=== PATIENT | female | born 1990 | race Caucasian/White ===

== ENCOUNTER 2017-10-01 22:00 | Emergency (ER) | payer OTHER ==
[~2017-10-01] VITALS: Ht 162.6 cm; Wt 102.2 kg
[~2017-10-01 22:00] MED LIST: ACET-1256 PO; LEVO25TA5 PO; METF500T5 PO; ROPI0.25 PO; SERT50TA PO
[2017-10-01 22:01] VITALS: TEMP 36.9; Ht 162.6 cm; Wt 102.2 kg
[2017-10-01] MEDS ORDERED: NRN100 PO (22:11)
[2017-10-01] MEDS ORDERED: METOCLOPRAMIDE HCL INJ 5 MG/ML 2 ML VIAL IV STA (22:15)
[2017-10-01] MEDS ORDERED: DICYCLOMINE HCL 10 MG/ML 2 ML AMP IM ONE (22:15)
[2017-10-01 22:35] VITALS: O2SAT 97
[2017-10-01 22:49] LABS: BASO % 0.4 %; BASO ABS # 0.04 K/uL (0-0.2); COMPLETE YES; EOS % 2.9 %; HEMATOCRIT 38.4 % (37-47); IG% 0.1 %; LYMPH % 43.7 %; MEAN CELL VOLUME 85.7 fL (80-100); MEAN CORPUSCULAR HEMOGLOBIN 28.8 pg (25-34); MEAN CORPUSCULAR HGB CONC 33.6 g/dl (32-36); MEAN PLATELET VOLUME 8.8 fL (7.4-10.4); MONO % 6.7 %; NEUT % 46.2 %; PLATELET COUNT 303 K/uL (130-400); RED BLOOD COUNT 4.48 M/uL (4.2-5.4); WHITE BLOOD COUNT 10.08 K/uL (4.8-10.8)
[2017-10-01 22:50] LABS: URINE APPEARANCE CLEAR (CLEAR); URINE BILIRUBIN NEG (NEG); URINE COLOR YELLOW; URINE NITRITE NEG (NEG); URINE PH 6.5 (4.5-7.5); URINE SPECIFIC GRAVITY 1.024 (1.000-1.030); UROBILINOGEN NEG (NEG); ZZUR CULT IF INDIC CLEAN CATCH NO
[2017-10-01 22:55] LABS: MANUAL MICROSCOPIC REQUIRED? NO; REVIEW REQ? NO
[2017-10-01 23:08] LABS: ALT/SGPT 27 U/L (12-78); AST/SGOT 18 U/L (15-37); BLOOD UREA NITROGEN 9 mg/dl (7-18); BUN/CREATININE RATIO 11.7 (10-20); CARBON DIOXIDE 25 mmol/L (21-32); CHLORIDE 105 mmol/L (98-107); CREATININE 0.76 mg/dl (0.60-1.20); GLUCOSE 95 mg/dl (70-99); POTASSIUM 3.7 mmol/L (3.5-5.1); SODIUM 137 mmol/L (136-145)
[2017-10-01 23:11] LABS: ALKALINE PHOSPHATASE 66 U/L (45-117)
--- NOTE | 2017-10-02 00:18 | EMERGENCY ROOM VISIT NOTE ---
History First contact with patient: 22:05 Chief Complaint: ABDOMINAL PAIN Stated Complaint: BAD ABDOMINAL PAIN Nursing Triage Summary: patient with abdominal pain for the last week with increasing in intensity with nasuea no vomiting History of Present Illness The patient is a 27 year old female who presents to the Emergency Room with complaints of nausea and intermittent abdominal pain for the past 3 days. Patient states throughout the day she'll have episodes of lower abdominal pain that starts in the right lower quadrant and radiates across her lower abdomen. Pain lasts 5-10 minutes. No prolonged episodes. She's had ovarian cysts before. She is unsure if this feels similar. Patient still has her appendix. Patient had a tubal ligation in the past. Patient denies chest pain, dyspnea, fever, chills, back pain, urinary symptoms, vaginal itching or discharge, exposure to STI's or concerns for STI's, vomiting, diarrhea. Review of Systems See HPI for pertinent positives & negatives. A total of 10 systems reviewed and were otherwise negative. Past Medical/Surgical History Medical Problems: (1) Acute costochondritis (2) Anxiety (3) Depression (4) Diabetes Surgical Problems: (1) Hx of cholecystectomy (2) S/P tubal ligation Family History Diabetes mellitus FH: cancer FH: heart disease FH: lung disease FHx: gallbladder disease Hypertension Social History Smoking Status: Never Smoker Alcohol Use: none Marital Status: single Housing Status: lives with family Occupation Status: employed Current/Historical Medications Scheduled Gabapentin (Gabapentin), 100 MG PO HS Sertraline (Zoloft), 100 MG PO HS Physical Exam Vital Signs Date Time Temp Pulse Resp B/P (MAP) Pulse Ox O2 Delivery O2 Flow Rate FiO2 10/01/17 23:00 87 20 108/62 97 Room Air 10/01/17 22:45 82 10/01/17 22:35 97 Room Air 10/01/17 22:01 36.9 85 18 114/73 98 Room Air Physical Exam VITALS: Vitals are noted on the nurse's note and reviewed by myself. Vital signs stable. GENERAL: Pleasant female, in no acute distress, nondiaphoretic, well-developed well-nourished. SKIN: The skin was without rashes, erythema, edema, or bruising. There is no tenting of the skin. Capillary reflex less than 2 seconds. HEAD: Normocephalic atraumatic. EARS: External auditory canals clear, tympanic membranes pearly richter without erythema or effusion bilaterally. EYES: Pupils equal round and reactive to light and accommodation. Conjunctivae without injection, sclerae without icterus. Extraocular movements intact. NOSE: Patent, turbinates without inflammation or discharge. MOUTH: Mucous membranes moist. Pharynx without erythema or exudate. Uvula midline. Airway patent. Tongue does not deviate. NECK: Supple without nuchal rigidity. No lymphadenopathy. No thyromegaly. Cervical spine is nontender. No JVD. HEART: Regular rate and rhythm without murmurs gallops or rubs. LUNGS: Clear to auscultation bilaterally without wheezes, rales or rhonchi. No dullness to percussion. No retractions or accessory muscle use. ABDOMEN: Positive bowel sounds x 4. Normal tympanic percussion. Soft, protuberant, obese, minimally tender to palpation right lower suprapubic region , no CVA tenderness, without masses or organomegaly. Long sign negative. No guarding or rebound tenderness. MUSCULOSKELETAL: No muscle atrophy, erythema, or edema noted. NEURO: Patient was alert and oriented to person place and time. Normal sensation to light and sharp touch. No focal neurological deficits. Medical Decision & Procedures Laboratory Results 10/01/17 22:30 Red Blood Count 4.48, Mean Corpuscular Volume 85.7, Mean Corpuscular Hemoglobin 28.8, Mean Corpuscular Hemoglobin Concent 33.6, Mean Platelet Volume 8.8, Neutrophils (%) (Auto) 46.2, Lymphocytes (%) (Auto) 43.7, Monocytes (%) (Auto) 6.7, Eosinophils (%) (Auto) 2.9, Basophils (%) (Auto) 0.4, Neutrophils # (Auto) 4.66, Lymphocytes # (Auto) 4.40, Monocytes # (Auto) 0.68, Eosinophils # (Auto) 0.29, Basophils # (Auto) 0.04 10/01/17 22:30 Test 10/01/17 22:30 White Blood Count 10.08 K/uL (4.8-10.8) Red Blood Count 4.48 M/uL (4.2-5.4) Hemoglobin 12.9 g/dL (12.0-16.0) Hematocrit 38.4 % (37-47) Mean Corpuscular Volume 85.7 fL (80-100) Mean Corpuscular Hemoglobin 28.8 pg (25-34) Mean Corpuscular Hemoglobin Concent 33.6 g/dl (32-36) Platelet Count 303 K/uL (130-400) Mean Platelet Volume 8.8 fL (7.4-10.4) Neutrophils (%) (Auto) 46.2 % Lymphocytes (%) (Auto) 43.7 % Monocytes (%) (Auto) 6.7 % Eosinophils (%) (Auto) 2.9 % Basophils (%) (Auto) 0.4 % Neutrophils # (Auto) 4.66 K/uL (1.4-6.5) Lymphocytes # (Auto) 4.40 K/uL (1.2-3.4) Monocytes # (Auto) 0.68 K/uL (0.11-0.59) Eosinophils # (Auto) 0.29 K/uL (0-0.5) Basophils # (Auto) 0.04 K/uL (0-0.2) RDW Standard Deviation 43.2 fL (36.4-46.3) RDW Coefficient of Variation 14.0 % (11.5-14.5) Immature Granulocyte % (Auto) 0.1 % Immature Granulocyte # (Auto) 0.01 K/uL (0.00-0.02) Urine Color YELLOW Urine Appearance CLEAR (CLEAR) Urine pH 6.5 (4.5-7.5) Urine Specific [place] 1.024 (1.000-1.030) Urine Protein NEG (NEG) Urine Glucose (UA) NEG (NEG) Urine Ketones NEG (NEG) Urine Occult Blood NEG (NEG) Urine Nitrite NEG (NEG) Urine Bilirubin NEG (NEG) Urine Urobilinogen NEG (NEG) Urine Leukocyte Esterase NEG (NEG) Urine Test NEG (NEG) Anion Gap 7.0 mmol/L (3-11) Est Creatinine Clear Calc Drug Dose 129.4 ml/min Estimated GFR () 124.6 Estimated GFR (Non- 107.5 BUN/Creatinine Ratio 11.7 (10-20) Calcium Level 9.0 mg/dl (8.5-10.1) Total Bilirubin 0.3 mg/dl (0.2-1) Direct Bilirubin < 0.1 mg/dl (0-0.2) Aspartate Amino Transf (AST/SGOT) 18 U/L (15-37) Alanine Aminotransferase (ALT/SGPT) 27 U/L (12-78) Alkaline Phosphatase 66 U/L (45-117) Total Protein 7.8 gm/dl (6.4-8.2) Albumin 3.5 gm/dl (3.4-5.0) Medications Administered Medications (Trade) Dose Ordered Sig/Tana Route Start Time Stop Time Status Last Admin Dose Admin Dicyclomine HCl (Bentyl Inj) 20 mg NOW ONCE IM 10/01/17 22:15 10/01/17 22:17 DC 10/01/17 22:45 20 MG Metoclopramide HCl (Reglan Inj) 10 mg NOW STAT IV 10/01/17 22:15 10/01/17 22:17 DC 10/01/17 22:45 10 MG ED Course Prior records/ancillary studies reviewed. Triage Nursing notes reviewed. The patient's history was concerning for abdominal pain. Differential diagnosis: Etiologies such as ovarian cyst, torsion, STI, appendicitis, diverticulitis, PUD , biliary pathology, UTI, pancreatitis, obstruction, mesenteric ischemia, aortic pathology, infections, inflammatory bowel disease, renal colic, as well as others were entertained. Physical examination findings: As above. ER treatment provided: Reglan, Bentyl On reassessment the patient felt better. Diagnostics interpreted by me: The labs revealed no worrisome electrolyte abnormality No leukocytosis. Stable H&H. Negative urine. Negative hCG Imaging studies: US PELVIS: Comparison: US dated 03/30/2017. Pelvic ultrasound within normal limits. Unremarkable sonographic appearance of the uterus and ovaries. No sonographic evidence of ovarian torsion. No free fluid in the pelvis. Radiologist: Vivi Canales MD Exam and history seem consistent with abdominal pain that last for a few minutes for the past few days that could be related to IBS. Patient felt much better after being medicated as above. She did not have an acute abdomen on exam. No leukocytosis. She is able to ambulate without difficulties. She was advised to take medications as directed and to follow-up family care in a day or 2 or here in the ER sooner for abdominal pain, fevers, vomiting, worsening signs or symptoms or as needed. By the evaluation outlined above emergent etiologies such as appendicitis, diverticulitis, PUD, biliary pathology, UTI, pancreatitis, obstruction, mesenteric ischemia, aortic pathology, infections, inflammatory bowel disease, renal colic, as well as others were deemed relatively unlikely. The pt informed about the findings as listed above. All questions were answered and pleased with the treatment. Return instructions were outlined and the patient was discharged in stable condition. Outpatient prescription management: [] Referral: The patient was referred back to their primary care physician for follow-up in 2 to 3 days for a recheck of the current condition. Case reviewed with my attending Medical Decision As above Medication Reconcilliation Current Medication List: was personally reviewed by me Blood Pressure Screening Patient's blood pressure: Normal blood pressure Impression Primary Impression: Bilateral lower abdominal discomfort Additional Impression: Nausea Departure Information Dispostion Home / Self-Care Condition GOOD Referrals Marta Zendejas A. P.ABess (PCP) Patient Instructions My [facility] Additional Instructions Bentyl 10 m tablet every 6-8 hours as needed for abdominal pain and cramping. Zofran(odansetron) tablets 4mg: Take one and allow it to dissolve in your mouth every four to six hours as needed for nausea or vomiting. Ibuprofen(Motrin, Advil) may be used for fever or pain. Use 600mg every six hours as needed. Take with food. Avoid using more than 2400mg in a 24 hour period. Do not use 2400mg per day for more than three consecutive days without physician direction. Prolonged inappropriate use can lead to stomach upset or ulcers. (AND/OR) Acetaminophen(Tylenol) may be used for fever or pain. Use 1000mg every six hours as needed. Avoid using more than 3000mg in a 24 hour period. Rest and drink plenty of fluids as tolerated. Slow sips of water or sports drinks are recommended instead of large amounts all at once. Continue current medications. Recommend bland diet for the next few days. Return to the ER for vomiting, fevers, abdominal pain, chest pains, difficulty breathing, black or bloody stools, worsening of your condition, or as needed. Follow up with your primary physician in 2-3 days for a recheck of your current condition. Problem Qualifiers
[2017-10-02] MEDS ORDERED: DICY20TA35 PO (00:23)
[2017-10-02] MEDS ORDERED: ONDANSETRON HOME PACK 4MG OD TAB PO ONE (00:30)
[2017-10-02] MEDS ORDERED: BENTYL HOME PACK 10 MG VIAL PO ONE (00:30)
[2017-10-02 00:38] VITALS: BP 112/67; PULSE 74; O2SAT 96
--- NOTE | 2017-10-02 06:16 | DIAGNOSTIC IMAGING REPORT ---
PELVIC COMPLETE NON OB HISTORY: 27 years-old Female suprapubic pain acute suprapubic pelvic pain COMPARISON: Pelvic ultrasound 03/30/2017 TECHNIQUE: Multiple real-time sonographic images of the deep pelvic structures were obtained transabdominally assessing grayscale appearance, color and spectral flow. Patient declined the transvaginal portion of the study. FINDINGS: Anteflexed uterus measures 7.4 x 3.9 x 4.4 cm and is unremarkable. Endometrium measures 6 mm. No myometrial mass lesions identified. The right ovary measures 3.0 x 1.9 x 2.8 cm and is unremarkable with arterial inflow documented. The left ovary measures 2.9 x 2.6 x 2.1 cm and is also unremarkable with arterial inflow documented. No significant free pelvic fluid. IMPRESSION: 1. Unremarkable sonographic appearance of the uterus and endometrium. 2. Bilateral ovaries appear normal without evidence of ovarian torsion. The above report was generated using voice recognition software. It may contain grammatical, syntax or spelling errors. Electronically signed by: Quinn Stubbs M.D. 10/02/2017 6:15 AM Dictated Date/Time: 10/02/2017 6:13 AM
== END 2017-10-02 00:39 | disposition home or self-care (01) ==
LOC: C.EDB 22:01
DX: R10.31 Right lower quadrant pain (principal); R10.32 Left lower quadrant pain; R11.0 Nausea; F41.9 Anxiety disorder, unspecified; F32.9 Major depressive disorder, single episode, unspecified; E11.9 Type 2 diabetes mellitus without complications; Z90.49 Acquired absence of other specified parts of digestive tract; Z83.3 Family history of diabetes mellitus; Z80.9 Family history of malignant neoplasm, unspecified; Z82.49 Family history of ischemic heart disease and other diseases of the circulatory system; Z83.6 Family history of other diseases of the respiratory system; Z83.79 Family history of other diseases of the digestive system

== ENCOUNTER 2017-10-29 19:24 | Emergency (ER) | payer OTHER ==
[~2017-10-29] VITALS: Ht 162.6 cm; Wt 103.3 kg
[~2017-10-29 19:24] MED LIST changes: -ACET-1256 PO; -LEVO25TA5 PO; -METF500T5 PO; -ROPI0.25 PO
[2017-10-29 19:27] VITALS: TEMP 37.5; Ht 162.6 cm; Wt 103.3 kg
[2017-10-29] MEDS ORDERED: SODIUM CHLORIDE 0.9% 1000ML 1,000 ML IV STA (19:38)
[2017-10-29] MEDS ORDERED: GI COCKTAIL PO STA (19:38)
[2017-10-29] MEDS ORDERED: FAMOTIDINE 20MG/5ML IV PUSH IV STA (19:38)
[2017-10-29] MEDS ORDERED: ONDANSETRON INJ 2 MG/ML 2 ML VIAL IV STA (19:38)
[2017-10-29] MEDS ORDERED: LIDOCAINE HCL 2% VISC SOLN 20 ML UDC ONE (19:59)
[2017-10-29] MEDS ORDERED: ALUMINUM/MAGNESIUM SUSP 30 ML UDC ONE (19:59)
[2017-10-29 20:06] LABS: BASO % 0.2 %; BASO ABS # 0.02 K/uL (0-0.2); EOS % 1.8 %; EOS ABS # 0.16 K/uL (0-0.5); HEMATOCRIT 35.3 % (37-47); HEMOGLOBIN 12.2 g/dL (12.0-16.0); IG# 0.01 K/uL (0.00-0.02); LYMPH % 14.7 %; LYMPH ABS # 1.31 K/uL (1.2-3.4); MEAN CELL VOLUME 83.6 fL (80-100); MEAN CORPUSCULAR HEMOGLOBIN 28.9 pg (25-34); MEAN CORPUSCULAR HGB CONC 34.6 g/dl (32-36); MEAN PLATELET VOLUME 8.5 fL (7.4-10.4); MONO % 4.8 %; MONO ABS # 0.43 K/uL (0.11-0.59); NEUT % 78.4 %; PLATELET COUNT 257 K/uL (130-400); RED CELL DISTRIBUTION WIDTH CV 13.9 % (11.5-14.5); WHITE BLOOD COUNT 8.93 K/uL (4.8-10.8)
--- NOTE | 2017-10-29 20:10 | EMERGENCY ROOM VISIT NOTE ---
History First contact with patient: 19:30 Chief Complaint: ILLNESS Stated Complaint: VOMITING, FEVER, COUGH, SORE THROAT History of Present Illness The patient is a 27 year old female who presents to the Emergency Room with complaints of nausea and vomiting that started this afternoon around 2 PM. She states she has vomited more than 10 times and cannot keep anything down. She states she woke up this morning with a sore throat and cough, and has had some chills and low-grade fevers up to 100 today as well. She states the vomiting started shortly after she ate lunch, and now she is having epigastric and midline chest pain since the vomiting, she describes this as constant, burning, worse after vomiting, /. She has not tried any medications for her symptoms today. She denies any bloody or bilious emesis, no bloody or black stools, denies abdominal pain, diarrhea, constipation, or urinary symptoms. Review of Systems A complete 10 point review of systems was reviewed with the patient with pertinent positives and negatives as per history of present illness. All else were negative. Past Medical/Surgical History Medical Problems: (1) Acute costochondritis (2) Anxiety (3) Depression (4) Diabetes Surgical Problems: (1) Hx of cholecystectomy (2) S/P tubal ligation Family History Diabetes mellitus FH: cancer FH: heart disease FH: lung disease FHx: gallbladder disease Hypertension Social History Smoking Status: Never Smoker Alcohol Use: none Marital Status: single Housing Status: lives with family Occupation Status: employed Current/Historical Medications Scheduled Gabapentin (Gabapentin), 100 MG PO HS Sertraline (Zoloft), 100 MG PO HS Allergies Reviewed in chart Physical Exam Vital Signs Date Time Temp Pulse Resp B/P (MAP) Pulse Ox O2 Delivery O2 Flow Rate FiO2 10/29/17 22:34 76 16 117/76 98 10/29/17 21:25 90 16 116/76 98 Room Air 10/29/17 20:04 98 10/29/17 19:27 37.5 105 18 107/68 97 Room Air Physical Exam CONSTITUTIONAL: Pleasant and cooperative. No acute distress. Mildly dehydrated , but otherwise well appearing and well nourished. HEENT: Normocephalic, atraumatic. Pupils equal, round and reactive to light, EOMI. TMs normal. Pharynx mildly erythematous, no edema or exudate. Tacky mucous membranes. NECK: Supple, full active range of motion without discomfort. No cervical adenopathy. RESPIRATORY: Clear to auscultation bilaterally with no wheezing, crackles, rhonchi or stridor. Equal expansion bilaterally. CARDIOVASCULAR: Regular rate and rhythm with no murmurs, rubs or gallops. Normal peripheral perfusion. No edema. GASTROINTESTINAL: Soft, nontender, nondistended, obese. No palpable masses or HSM. Bowel sounds present in all quadrants. MUSCULOSKELETAL: Full range of motion of all joints without discomfort. INTEGUMENTARY: No rash or other significant dermatologic conditions noted. NEUROLOGIC: Alert and oriented X 4 with normal affect. No focal neurologic deficits noted. Normal strength and sensation in all 4 extremities. Normal speech. Normal gait observed. Medical Decision & Procedures ER Provider Diagnostic Interpretation: CHEST 2 VIEWS ROUTINE CLINICAL HISTORY: Fever, cough, chest tightness. COMPARISON STUDY: 09/11/2016 FINDINGS: The cardiac and mediastinal contours are normal. There is no evidence of focal pulmonary consolidation. There is no evidence of failure. No pleural effusions are visualized. IMPRESSION: No active disease in the chest. Laboratory Results 10/29/17 19:50 Red Blood Count 4.22, Mean Corpuscular Volume 83.6, Mean Corpuscular Hemoglobin 28.9, Mean Corpuscular Hemoglobin Concent 34.6, Mean Platelet Volume 8.5, Neutrophils (%) (Auto) 78.4, Lymphocytes (%) (Auto) 14.7, Monocytes (%) (Auto) 4.8, Eosinophils (%) (Auto) 1.8, Basophils (%) (Auto) 0.2, Neutrophils # (Auto) 7.00, Lymphocytes # (Auto) 1.31, Monocytes # (Auto) 0.43, Eosinophils # (Auto) 0.16, Basophils # (Auto) 0.02 10/29/17 19:50 Test 10/29/17 19:50 10/29/17 21:14 White Blood Count 8.93 K/uL (4.8-10.8) Red Blood Count 4.22 M/uL (4.2-5.4) Hemoglobin 12.2 g/dL (12.0-16.0) Hematocrit 35.3 % (37-47) Mean Corpuscular Volume 83.6 fL (80-100) Mean Corpuscular Hemoglobin 28.9 pg (25-34) Mean Corpuscular Hemoglobin Concent 34.6 g/dl (32-36) Platelet Count 257 K/uL (130-400) Mean Platelet Volume 8.5 fL (7.4-10.4) Neutrophils (%) (Auto) 78.4 % Lymphocytes (%) (Auto) 14.7 % Monocytes (%) (Auto) 4.8 % Eosinophils (%) (Auto) 1.8 % Basophils (%) (Auto) 0.2 % Neutrophils # (Auto) 7.00 K/uL (1.4-6.5) Lymphocytes # (Auto) 1.31 K/uL (1.2-3.4) Monocytes # (Auto) 0.43 K/uL (0.11-0.59) Eosinophils # (Auto) 0.16 K/uL (0-0.5) Basophils # (Auto) 0.02 K/uL (0-0.2) RDW Standard Deviation 42.0 fL (36.4-46.3) RDW Coefficient of Variation 13.9 % (11.5-14.5) Immature Granulocyte % (Auto) 0.1 % Immature Granulocyte # (Auto) 0.01 K/uL (0.00-0.02) Anion Gap 7.0 mmol/L (3-11) Est Creatinine Clear Calc Drug Dose 126.8 ml/min Estimated GFR () 120.8 Estimated GFR (Non- 104.2 BUN/Creatinine Ratio 11.7 (10-20) Calcium Level 8.5 mg/dl (8.5-10.1) Total Bilirubin 0.5 mg/dl (0.2-1) Direct Bilirubin < 0.1 mg/dl (0-0.2) Aspartate Amino Transf (AST/SGOT) 9 U/L (15-37) Alanine Aminotransferase (ALT/SGPT) 20 U/L (12-78) Alkaline Phosphatase 64 U/L (45-117) Total Protein 7.7 gm/dl (6.4-8.2) Albumin 3.3 gm/dl (3.4-5.0) Lipase 119 U/L (73-393) Urine Color YELLOW Urine Appearance CLEAR (CLEAR) Urine pH 7.0 (4.5-7.5) Urine Specific [place] 1.020 (1.000-1.030) Urine Protein NEG (NEG) Urine Glucose (UA) NEG (NEG) Urine Ketones NEG (NEG) Urine Occult Blood NEG (NEG) Urine Nitrite NEG (NEG) Urine Bilirubin NEG (NEG) Urine Urobilinogen NEG (NEG) Urine Leukocyte Esterase NEG (NEG) Urine Test NEG (NEG) Medications Administered Medications (Trade) Dose Ordered Sig/Tana Route Start Time Stop Time Status Last Admin Dose Admin Sodium Chloride 1,000 ml @ 999 mls/hr Q1H1M STAT IV 10/29/17 19:38 10/29/17 20:38 DC 10/29/17 20:04 999 MLS/HR Ondansetron HCl (Zofran Inj) 4 mg NOW STAT IV 10/29/17 19:38 10/29/17 19:41 DC 10/29/17 20:05 4 MG Famotidine (Pepcid 20mg Iv Push) 20 mg NOW STAT IV 10/29/17 19:38 10/29/17 19:41 DC 10/29/17 20:05 20 MG Al Hydroxide/Mg Hydroxide (Maalox Susp) 30 ml STK-MED ONCE .ROUTE 10/29/17 19:59 10/29/17 20:00 DC 10/29/17 20:05 30 ML Lidocaine HCl (Viscous Lidocaine 2% Soln) 20 ml STK-MED ONCE .ROUTE 10/29/17 19:59 10/29/17 20:00 DC 10/29/17 20:05 20 ML Ondansetron HCl (ZOFRAN ODT 4MG Home Pack) 1 homepack UD ONCE PO 10/29/17 21:15 10/29/17 21:16 DC 10/29/17 21:15 1 HOMEPACK Acetaminophen (Tylenol Tab) 1,000 mg STK-MED ONCE PO 10/29/17 21:39 10/29/17 21:40 DC 10/29/17 21:39 1,000 MG Medical Decision CC: Patient presenting with complaint of vomiting, cough, sore throat, fevers Interpretation of Labs: No leukocytosis, no anemia, no significant electrolyte abnormality, normal renal function, normal liver and lipase. UA negative, urine negative. Differential Diagnosis: Includes, but not limited to gastroenteritis, gastritis , peptic ulcer disease, GERD, viral URI, bronchitis, pneumonia, dehydration, electrolyte abnormality, among others. Medication Reconciliation: I attest that I have personally reviewed the patient' s current medication list. Vital signs review: I reviewed the patient's vital signs and interpret them as follows: T: Afebrile; BP: Normotensive; HR: Tachycardic; RR: Within normal limits; Pulse Ox: Within normal limits on room air. Blood pressure screening: The patient was found to have normal blood pressure on screening and does not require follow-up for repeat blood pressure check. Summary: Patient was evaluated at bedside, history and physical exam performed. Patient is alert and oriented, in no acute distress and nontoxic appearing, resting calmly in the stretcher. Patient does appear mildly dehydrated on exam. The abdomen is nontender throughout with normal bowel sounds. Orders were placed at bedside for labs, UA and , IV fluids for hydration, IV Zofran and Pepcid, GI cocktail, chest x-ray to evaluate for cardiopulmonary disease. Patient discussed with Dr. Muse, who agrees with my assessment and plan. Labs reviewed as above, unremarkable. Chest x-ray no acute abnormalities. Patient reassessed multiple times throughout ED stay, her symptoms are improved , she is now able to tolerate PO fluids without difficulty. Tachycardia resolved after IV fluids. Take home pack of Zofran provided for ongoing management of nausea/vomiting. Patient was updated on all results and plan for discharge, and was encouraged to follow closely with her PCP. She was also given strict return precautions should her symptoms worsen. Patient verbalized understanding of all discharge instructions and was agreeable to this plan. Patient was discharged home in stable condition and ambulatory. Impression Primary Impression: Vomiting Additional Impression: URI with cough and congestion Departure Information Dispostion Home / Self-Care Condition GOOD Referrals Marta Zendejas A. P.ABess (PCP) Patient Instructions ED Gastroenteritis Viral, ED URI Viral, [facility] Additional Instructions You have been evaluated in the emergency department for your vomiting and cough. Your chest x-ray today does not show any sign of pneumonia. You have been provided with Zofran to be taken 1 pill every 6-8 hours as needed for severe nausea/vomiting. For stomach pain/acid stomach, you may take Pepcid (famotidine) or Zantac ( ranitidine) twice a day as needed. These medications are available over-the- counter, please take as directed. For pain or fevers, you may take the following [id number] medications: - Tylenol 1000 mg every 8 hours as needed, do not take more than 3000 mg in 24 hours - Ibuprofen 600 mg every 6-8 hours as needed, do not take more than 2400 mg in 24 hours It is important for you to drink plenty of fluids to stay hydrated. Stick with clear liquids and bland foods until you are feeling back to normal, and slowly advance back to a normal diet. Please follow up with your primary care provider in the next 2-3 days if your symptoms are not improving. Please return to the emergency department for any worsening symptoms, including severe abdominal pain, persistent or worsening vomiting, vomiting blood or bile , fevers > 101.5, severe dizziness or passing out, or any other concerns. Work Instructions Return To Work: 2 days Problem Qualifiers Primary Impression: Vomiting Vomiting type: unspecified Vomiting Intractability: non-intractable Nausea presence: with nausea Qualified Codes: R11.2 - Nausea with vomiting, unspecified
[2017-10-29 20:33] LABS: ALBUMIN 3.3 gm/dl (3.4-5.0); ALT/SGPT 20 U/L (12-78); AST/SGOT 9 U/L (15-37); BLOOD UREA NITROGEN 9 mg/dl (7-18); CALCIUM 8.5 mg/dl (8.5-10.1); CARBON DIOXIDE 26 mmol/L (21-32); CREATININE 0.78 mg/dl (0.60-1.20); GLUCOSE 109 mg/dl (70-99); LIPASE 119 U/L (73-393); POTASSIUM 3.4 mmol/L (3.5-5.1); SODIUM 135 mmol/L (136-145)
[2017-10-29 20:36] LABS: ALKALINE PHOSPHATASE 64 U/L (45-117); TOTAL PROTEIN 7.7 gm/dl (6.4-8.2)
--- NOTE | 2017-10-29 20:39 | DIAGNOSTIC IMAGING REPORT ---
CHEST 2 VIEWS ROUTINE CLINICAL HISTORY: Fever, cough, chest tightness. COMPARISON STUDY: 09/11/2016 FINDINGS: The cardiac and mediastinal contours are normal. There is no evidence of focal pulmonary consolidation. There is no evidence of failure. No pleural effusions are visualized.[ IMPRESSION: No active disease in the chest. Electronically signed by: Yony Paez M.D. 10/29/2017 8:38 PM Dictated Date/Time: 10/29/2017 8:37 PM
[2017-10-29] MEDS ORDERED: ONDANSETRON HOME PACK 4MG OD TAB PO ONE (21:15)
[2017-10-29] MEDS ORDERED: ACETAMINOPHEN 500 MG TAB PO ONE (21:39)
[2017-10-29] MEDS ORDERED: ACETAMINOPHEN 500 MG TAB PO STA (21:44)
[2017-10-29] MEDS ORDERED: NRN100 PO (22:11)
[2017-10-29 22:34] VITALS: BP 117/76; PULSE 76; O2SAT 98
== END 2017-10-29 22:38 | disposition home or self-care (01) ==
LOC: C.EDB 19:26
DX: J06.9 Acute upper respiratory infection, unspecified (principal); R11.10 Vomiting, unspecified; E11.9 Type 2 diabetes mellitus without complications; F32.9 Major depressive disorder, single episode, unspecified; F41.9 Anxiety disorder, unspecified; Z98.51 Tubal ligation status; Z90.49 Acquired absence of other specified parts of digestive tract; Z83.3 Family history of diabetes mellitus; Z80.9 Family history of malignant neoplasm, unspecified; Z82.49 Family history of ischemic heart disease and other diseases of the circulatory system; Z83.79 Family history of other diseases of the digestive system; Z79.899 Other long term (current) drug therapy

== ENCOUNTER 2018-05-31 09:53 | Emergency (ER) | payer OTHER ==
[~2018-05-31] VITALS: Ht 162.6 cm; Wt 103.8 kg
[~2018-05-31 09:53] MED LIST changes: +FLUT0.15 NAE; -SERT50TA PO
[2018-05-31 09:57] VITALS: TEMP 36.8; Ht 162.6 cm; Wt 103.8 kg
[2018-05-31] MEDS ORDERED: KETOROLAC TROMETHAMINE 30 MG/ML VIAL IV STA (10:13)
--- NOTE | 2018-05-31 10:20 | EMERGENCY ROOM VISIT NOTE ---
History Report prepared by Meme: Bambi Monson Under the Supervision of: Dr. Chavo Mae M.D. First contact with patient: 10:04 Chief Complaint: PELVIC PAIN Stated Complaint: BAD PELVIC PAIN History of Present Illness The patient is a 28 year old female who presents to the Emergency Room with complaints of persistent pelvic pain that started last night. The patient rates her pain a 6/10 in severity. The patient states the pain has been worse on her left side. She notes the pain worsens with movement and breathing. She notes she has never had pain like this before. She denies any recent injuries. The patient also complains of lower back pain, a low grade fever, and nausea. She notes her last period was a couple of months ago but states she has a NuvaRing. She denies abnormal vaginal bleeding or discharge, shortness of breath, chest pain, melena, diarrhea, or vomiting. She notes she had a cholecystectomy in 2005. The patient has a history of depression and takes 100 mg of Zoloft. She also has a history of bad allergies and takes 10 mg of Singulair. Source of History: patient Onset: last night Position: other (pelvis) Symptom Intensity: 6/10 Timing: other (persistent) Modifying Factors (Worsening): breathing, movement Associated Symptoms: + fevers, + nausea, + back pain, No chest pain, No SOB , No vomiting, No melena, No diarrhea Review of Systems See HPI for pertinent positives & negatives. A total of 10 systems reviewed and were otherwise negative. Past Medical & Surgical Medical Problems: (1) Acute costochondritis (2) Anxiety (3) Depression (4) Diabetes Surgical Problems: (1) Hx of cholecystectomy (2) S/P tubal ligation Old medical records were reviewed. Nurse's notes were reviewed and I agree with. Family History Diabetes mellitus FH: cancer FH: heart disease FH: lung disease FHx: gallbladder disease Hypertension Social History Smoking Status: Never Smoker Alcohol Use: none Marital Status: single Housing Status: lives with family Occupation Status: employed Current/Historical Medications Scheduled Etonogestrel/Ethinyl Estradiol (Nuvaring), 1 EA VAGRING MONTHLY Fluticasone Propionate (Nasal) (Flonase Allergy Relief), 1 SPRAY ALIYA QD Gabapentin (Gabapentin), 1,200 MG PO HS Montelukast Sodium (Singulair), 10 MG PO DAILY Sertraline Hcl (Zoloft), 200 MG PO HS Allergies Coded Allergies: Penicillins (Verified Allergy, Intermediate, RASH,FEVER, 05/31/18) Physical Exam Vital Signs Date Time Temp Pulse Resp B/P (MAP) Pulse Ox O2 Delivery O2 Flow Rate FiO2 05/31/18 12:46 76 18 120/74 99 05/31/18 11:56 76 18 118/70 99 Room Air 05/31/18 09:57 36.8 84 18 113/75 97 Room Air Physical Exam General: Non-ill appearing young female in no acute distress. HEENT: Normal cephalic atraumatic. Pupils are equal round and reactive to light. Extraocular movements are intact. Oropharynx is pink with moist mucous membranes. No swelling of the mouth lips or tongue. Neck: Supple with a midline trachea. No meningeal signs or stiffness, no JVD or bruits. No Stridor. Chest: Clear to auscultation bilaterally. No wheezes or rhonchi. No increased work of breathing. Heart: regular rate and rhythm. Abdomen: Soft, nondistended without rebound guarding or rigidity. Mildly tender in lower abdomen mostly on left side. Extremities: No cyanosis clubbing or edema. No calf tenderness or assymetry Spine/Back. Non tender to palpation. No CVA tenderness Skin: Good turgor without rashes. Neurologic exam: Cranial nerves two through 12 are intact. Motor and sensation are intact and symmetrical throughout. Medical Decision & Procedures ER Provider Diagnostic Interpretation: Radiology results as stated below per my review and radiologist interpretation: PELVIC COMPLETE NON OB CLINICAL HISTORY: 28 years-old Female presenting with eval for llq abd pain, unknown last menstrual period. TECHNIQUE: Real-time grayscale and color and spectral Doppler ultrasound imaging of the pelvis was performed first using a transabdominal probe and subsequently transvaginal for better characterization. COMPARISON: 10/01/[address] from 2011. FINDINGS: Uterus: Normal. Anteverted retroflexed. The uterus measures 8.1 x 4.4 x 4.7 cm. Endometrial stripe measures 14 mm in thickness. Endometrium normal-appearing. Cervix may contain a prominent Nabothian cyst, although this simple appearing benign cystic structure could be extrauterine or paraovarian. Right adnexa: Right ovary normal. Right ovary measures 2.1 x 3.4 x 2.3 cm. Normal color Doppler flow and arterial and venous waveforms within the ovarian parenchyma. Left adnexa: Left ovary normal. Left ovary measures 3.1 x 2.3 x 1.9 cm. Normal color Doppler flow and arterial and venous waveforms within the ovarian parenchyma. Other: No free fluid. IMPRESSION: No significant abnormality identified within the pelvis. No ovarian torsion. Endometrial thickness is normal for age depending on the phase of the menstrual cycle. Electronically signed by: Alireza Oropeza M.D. 05/31/2018 11:26 AM Dictated Date/Time: 05/31/2018 11:22 AM ABD/PELVIS IV CONTRAST ONLY CLINICAL HISTORY: 28 years-old Female presenting with lower abd pain, mostly on left. TECHNIQUE: Multidetector CT of the abdomen and pelvis was performed after the administration of intravenous contrast. IV contrast: 91 mL of Optiray 320. A dose lowering technique was used consistent with the principles of ALARA (as low as reasonably achievable). COMPARISON: 09/01/2012. CT DOSE (mGy.cm): The estimated cumulative dose is 1376.63 mGy.cm. FINDINGS: [employer] Operator topogram: Cholecystectomy clips. Lung bases: Lungs and pleural spaces clear. Normal heart size. No pericardial or pleural effusion. Liver: Normal morphology. Irregular hypodensity centrally at the liver hilum may represent retraction injury. No liver lesion. Patent hepatic vasculature. Biliary: No intrahepatic or extrahepatic biliary ductal dilatation. Gallbladder surgically absent. Pancreas: Mild parenchymal atrophy. Spleen: Normal. Adrenal glands: Normal. Kidneys and ureters: Normal. No hydronephrosis. Bladder: Incompletely evaluated secondary to underdistention. Pelvic organs: Uterus and ovaries normal. Bowel: Normal. Nodular infiltrated fat adjacent to the junction of the descending and sigmoid colon (series 3 image 275). The appendix is normal. No bowel obstruction. Peritoneal cavity: No free fluid or intraperitoneal gas. Lymph nodes: No enlarged lymph nodes in the abdomen or pelvis. Vasculature: Aorta and IVC patent and normal in caliber. Abdominal wall: Normal. Musculoskeletal: Normal. IMPRESSION: 1. Findings consistent with epiploic appendagitis of the junction of the descending and sigmoid colon. No other acute intra-abdominal pathology. Electronically signed by: Alireza Oropeza M.D. 05/31/2018 12:23 PM Dictated Date/Time: 05/31/2018 12:18 PM Laboratory Results 05/31/18 10:23 Red Blood Count 4.41, Mean Corpuscular Volume 84.1, Mean Corpuscular Hemoglobin 28.1, Mean Corpuscular Hemoglobin Concent 33.4, Mean Platelet Volume 8.7, Neutrophils (%) (Auto) 52.3, Lymphocytes (%) (Auto) 40.5, Monocytes (%) (Auto) 4.7, Eosinophils (%) (Auto) 1.9, Basophils (%) (Auto) 0.2, Neutrophils # (Auto) 4.41, Lymphocytes # (Auto) 3.41, Monocytes # (Auto) 0.40, Eosinophils # (Auto) 0.16, Basophils # (Auto) 0.02 05/31/18 10:23 Test 05/31/18 10:20 05/31/18 10:23 Urine Color DK YELLOW Urine Appearance CLOUDY (CLEAR) Urine pH 6.5 (4.5-7.5) Urine Specific [place] 1.031 (1.000-1.030) Urine Protein NEG (NEG) Urine Glucose (UA) NEG (NEG) Urine Ketones TRACE (NEG) Urine Occult Blood 2+ (NEG) Urine Nitrite NEG (NEG) Urine Bilirubin NEG (NEG) Urine Urobilinogen NEG (NEG) Urine Leukocyte Esterase TRACE (NEG) Urine WBC (Auto) 1-5 /hpf (0-5) Urine RBC (Auto) 0-4 /hpf (0-4) Urine Hyaline Casts (Auto) 0 /lpf (0-5) Urine Epithelial Cells (Auto) >30 /lpf (0-5) Urine Bacteria (Auto) 1+ (NEG) Urine Pathogenic Casts /lpf (0) Urine Test NEG (NEG) White Blood Count 8.43 K/uL (4.8-10.8) Red Blood Count 4.41 M/uL (4.2-5.4) Hemoglobin 12.4 g/dL (12.0-16.0) Hematocrit 37.1 % (37-47) Mean Corpuscular Volume 84.1 fL (80-100) Mean Corpuscular Hemoglobin 28.1 pg (25-34) Mean Corpuscular Hemoglobin Concent 33.4 g/dl (32-36) Platelet Count 346 K/uL (130-400) Mean Platelet Volume 8.7 fL (7.4-10.4) Neutrophils (%) (Auto) 52.3 % Lymphocytes (%) (Auto) 40.5 % Monocytes (%) (Auto) 4.7 % Eosinophils (%) (Auto) 1.9 % Basophils (%) (Auto) 0.2 % Neutrophils # (Auto) 4.41 K/uL (1.4-6.5) Lymphocytes # (Auto) 3.41 K/uL (1.2-3.4) Monocytes # (Auto) 0.40 K/uL (0.11-0.59) Eosinophils # (Auto) 0.16 K/uL (0-0.5) Basophils # (Auto) 0.02 K/uL (0-0.2) RDW Standard Deviation 40.0 fL (36.4-46.3) RDW Coefficient of Variation 13.3 % (11.5-14.5) Immature Granulocyte % (Auto) 0.4 % Immature Granulocyte # (Auto) 0.03 K/uL (0.00-0.02) Anion Gap 5.0 mmol/L (3-11) Est Creatinine Clear Calc Drug Dose 119.9 ml/min Estimated GFR () 112.9 Estimated GFR (Non- 97.4 BUN/Creatinine Ratio 11.2 (10-20) Calcium Level 8.7 mg/dl (8.5-10.1) Total Bilirubin 0.3 mg/dl (0.2-1) Direct Bilirubin < 0.1 mg/dl (0-0.2) Aspartate Amino Transf (AST/SGOT) 10 U/L (15-37) Alanine Aminotransferase (ALT/SGPT) 18 U/L (12-78) Alkaline Phosphatase 68 U/L (45-117) Total Protein 7.4 gm/dl (6.4-8.2) Albumin 3.2 gm/dl (3.4-5.0) Lipase 129 U/L (73-393) Laboratory studies as stated above per my review. Medications Administered Medications (Trade) Dose Ordered Sig/Tana Route Start Time Stop Time Status Last Admin Dose Admin Ketorolac Tromethamine (Toradol Inj) 30 mg NOW STAT IV 05/31/18 10:13 05/31/18 10:15 DC 05/31/18 10:28 30 MG ED Course 1008: Past medical records reviewed. The patient was evaluated in room C9, and a complete history and physical examination were performed. 1013: Ordered Toradol Inj 30 mg IV. 1055: The patient is in ultrasound at this time. 1153: I rechecked the patient. She appears comfortable. She states she is still having pain. I will order a CT. 1235: Upon reevaluation, the patient is resting comfortably. I discussed the results and treatment plan with her. She verbalized agreement of the treatment plan. The patient was discharged home. Medical Decision Differential Diagnosis: , UTI, gynecologic issue, appendicitis, infection, electrolyte or metabolic abnormality, or musculoskeletal. This patient comes in complaining of lower abdominal/pelvic pain is mostly on the left. It has been going on since last night. She denies as she has had a tubal ligation and is on hormonal control. IV access was established and multiple blood testing was obtained as well as urinalysis and culture. She is driving. She was given Toradol 30 mg IV. Ultrasound was also obtained as well as a test. She was reassessed frequently. She seems to be resting comfortably after the Toradol. She has no white count or fever to suggest infection. She is no acute electrolyte or metabolic abnormalities. She is nothing to suggest liver gallbladder pancreas disease. Urinalysis is unremarkable. test is negative. Ultrasound was obtained and shows no acute findings of her gynecologic organs. With her ongoing symptoms, I did get a CAT scan and she appears to have epiploic appendagitis. She will be treated with NSAIDs. She should use ibuprofen 400 mg every 6 hours and take with food. She should return if: increasing pain, fever or chills, worsening of symptoms, any new problems or concerns. She is happy the plan and discharged to home. Medication Reconcilliation Current Medication List: was personally reviewed by me Blood Pressure Screening Patient's blood pressure: Normal blood pressure Impression Primary Impression: Epiploic appendagitis Additional Impression: LLQ abdominal pain Scribe Attestation The scribe's documentation has been prepared under my direction and personally reviewed by me in its entirety. I confirm that the note above accurately reflects all work, treatment, procedures, and medical decision making performed by me. Departure Information Dispostion Home / Self-Care Referrals Marta Zendejas A. P.Kaylee (PCP) Patient Instructions My [facility] Additional Instructions Rest. Drink plenty of fluids. Use ibuprofen 400 mg every 6 hours, take with food Return if: Increasing pain, fever chills, worsening symptoms, any new problems or concerns Problem Qualifiers
[2018-05-31 10:39] LABS: BASO % 0.2 %; BASO ABS # 0.02 K/uL (0-0.2); EOS % 1.9 %; EOS ABS # 0.16 K/uL (0-0.5); HEMATOCRIT 37.1 % (37-47); HEMOGLOBIN 12.4 g/dL (12.0-16.0); IG# 0.03 K/uL (0.00-0.02); LYMPH % 40.5 %; LYMPH ABS # 3.41 K/uL (1.2-3.4); MEAN CELL VOLUME 84.1 fL (80-100); MEAN CORPUSCULAR HEMOGLOBIN 28.1 pg (25-34); MEAN CORPUSCULAR HGB CONC 33.4 g/dl (32-36); MEAN PLATELET VOLUME 8.7 fL (7.4-10.4); MONO % 4.7 %; NEUT % 52.3 %; NEUT ABS # 4.41 K/uL (1.4-6.5); PLATELET COUNT 346 K/uL (130-400); RED CELL DISTRIBUTION WIDTH CV 13.3 % (11.5-14.5); WHITE BLOOD COUNT 8.43 K/uL (4.8-10.8)
[2018-05-31] MEDS ORDERED: ETONMIS VAGRING (11:00)
[2018-05-31 11:03] LABS: ALBUMIN 3.2 gm/dl (3.4-5.0); ALKALINE PHOSPHATASE 68 U/L (45-117); ALT/SGPT 18 U/L (12-78); AST/SGOT 10 U/L (15-37); BLOOD UREA NITROGEN 9 mg/dl (7-18); CALCIUM 8.7 mg/dl (8.5-10.1); CARBON DIOXIDE 24 mmol/L (21-32); CREATININE 0.82 mg/dl (0.60-1.20); GLUCOSE 116 mg/dl (70-99); LIPASE 129 U/L (73-393); POTASSIUM 3.5 mmol/L (3.5-5.1); SODIUM 137 mmol/L (136-145); TOTAL PROTEIN 7.4 gm/dl (6.4-8.2)
--- NOTE | 2018-05-31 11:28 | DIAGNOSTIC IMAGING REPORT ---
PELVIC COMPLETE NON OB CLINICAL HISTORY: 28 years-old Female presenting with eval for llq abd pain, unknown last menstrual period. TECHNIQUE: Real-time grayscale and color and spectral Doppler ultrasound imaging of the pelvis was performed first using a transabdominal probe and subsequently transvaginal for better characterization. COMPARISON: 10/01/[address] from 2011. FINDINGS: Uterus: Normal. Anteverted retroflexed. The uterus measures 8.1 x 4.4 x 4.7 cm. Endometrial stripe measures 14 mm in thickness. Endometrium normal-appearing. Cervix may contain a prominent Nabothian cyst, although this simple appearing benign cystic structure could be extrauterine or paraovarian. Right adnexa: Right ovary normal. Right ovary measures 2.1 x 3.4 x 2.3 cm. Normal color Doppler flow and arterial and venous waveforms within the ovarian parenchyma. Left adnexa: Left ovary normal. Left ovary measures 3.1 x 2.3 x 1.9 cm. Normal color Doppler flow and arterial and venous waveforms within the ovarian parenchyma. Other: No free fluid. IMPRESSION: No significant abnormality identified within the pelvis. No ovarian torsion. Endometrial thickness is normal for age depending on the phase of the menstrual cycle. Electronically signed by: Alireza Oropeza M.D. 05/31/2018 11:26 AM Dictated Date/Time: 05/31/2018 11:22 AM
[2018-05-31] MEDS ORDERED: OPTIRAY 320 IV PRN (12:00)
--- NOTE | 2018-05-31 12:25 | DIAGNOSTIC IMAGING REPORT ---
ABD/PELVIS IV CONTRAST ONLY CLINICAL HISTORY: 28 years-old Female presenting with lower abd pain, mostly on left. TECHNIQUE: Multidetector CT of the abdomen and pelvis was performed after the administration of intravenous contrast. IV contrast: 91 mL of Optiray 320. A dose lowering technique was used consistent with the principles of ALARA (as low as reasonably achievable). COMPARISON: 09/01/2012. CT DOSE (mGy.cm): The estimated cumulative dose is 1376.63 mGy.cm. FINDINGS: [employer] topogram: Cholecystectomy clips. Lung bases: Lungs and pleural spaces clear. Normal heart size. No pericardial or pleural effusion. Liver: Normal morphology. Irregular hypodensity centrally at the liver hilum may represent retraction injury. No liver lesion. Patent hepatic vasculature. Biliary: No intrahepatic or extrahepatic biliary ductal dilatation. Gallbladder surgically absent. Pancreas: Mild parenchymal atrophy. Spleen: Normal. Adrenal glands: Normal. Kidneys and ureters: Normal. No hydronephrosis. Bladder: Incompletely evaluated secondary to underdistention. Pelvic organs: Uterus and ovaries normal. Bowel: Normal. Nodular infiltrated fat adjacent to the junction of the descending and sigmoid colon (series 3 image 275). The appendix is normal. No bowel obstruction. Peritoneal cavity: No free fluid or intraperitoneal gas. Lymph nodes: No enlarged lymph nodes in the abdomen or pelvis. Vasculature: Aorta and IVC patent and normal in caliber. Abdominal wall: Normal. Musculoskeletal: Normal. IMPRESSION: 1. Findings consistent with epiploic appendagitis of the junction of the descending and sigmoid colon. No other acute intra-abdominal pathology. Electronically signed by: Alireza Oropeza M.D. 05/31/2018 12:23 PM Dictated Date/Time: 05/31/2018 12:18 PM
[2018-05-31 12:46] VITALS: BP 120/74; PULSE 76; O2SAT 99
[2018-05-31] MEDS ORDERED: NRN300 PO (17:29)
[2018-05-31] MEDS ORDERED: MONT1TAB3 PO (17:29)
[2018-05-31] MEDS ORDERED: SERT100T PO (17:29)
== END 2018-05-31 12:46 | disposition home or self-care (01) ==
LOC: C.EDB 09:54 → C.EDC 12:46
DX: K63.89 Other specified diseases of intestine (principal); Q43.8 Other specified congenital malformations of intestine; R10.32 Left lower quadrant pain; E11.9 Type 2 diabetes mellitus without complications; F32.9 Major depressive disorder, single episode, unspecified; F41.9 Anxiety disorder, unspecified; Z79.3 Long term (current) use of hormonal contraceptives; Z79.899 Other long term (current) drug therapy; Z88.0 Allergy status to penicillin

== ENCOUNTER 2024-05-11 15:35 | Inpatient (IN) ==
[2024-05-11 16:32] LABS: Appearance Urine Cloudy (Clear); Bacteria Urine Automated 2+ (None Seen); Bilirubin Urine Negative (Negative); Blood Urine Trace (Negative); Cast Urine Automated 0-2 /lpf (0-2); Color Urine Yellow; Glucose Urine UA Negative (Negative); Ketones Urine Negative (Negative); Leukocyte Esterase Urine 3+ (Negative); Nitrite Urine Negative (Negative); Protein Urine Trace (Negative); Specific Gravity Urine 1.015 (1.000-1.030); Urobilinogen Urine Negative (Negative); WBC Urine Automated >50 /hpf (0-5); pH Urine 6.5 (4.5-7.5)
[2024-05-11 16:44] LABS: Basophils # (auto) 0.06 K/uL (0.00-0.20); Basophils % (auto) 0.5 %; Eosinophils # (auto) 0.18 K/uL (0.00-0.50); Eosinophils % (auto) 1.4 %; Hematocrit (blood only) 32.4 % (37.0-47.0); Hemoglobin 10.8 g/dl (12.0-16.0); Immature Granulocytes # (auto) 0.06 K/uL (0.01-0.20); Immature Granulocytes % (auto) 0.5 %; Lymphocytes # (auto) 3.08 K/uL (1.20-3.40); Lymphocytes % (auto) 23.3 %; Mean Corpuscular Hemoglobin 27.2 pg (25.0-34.0); Mean Corpuscular Hgb Conc 33.3 g/dL (32.0-36.0); Mean Corpuscular Volume 81.6 fL (80.0-100.0); Mean Platelet Volume 8.2 fL (9.4-12.4); Monocytes # (auto) 0.98 K/uL (0.11-0.59); Monocytes % (auto) 7.4 %; Neutrophils # (auto) 8.86 K/uL (1.40-6.50); Neutrophils % (auto) 66.9 %; Platelet Count 458 K/uL (130-400); RDW Coefficient of Variation 13.5 % (11.5-14.5); RDW Standard Deviation 40.6 fL (36.4-46.3); Red Blood Count 3.97 M/uL (4.20-5.40); White Blood Count 13.22 K/ul (4.8-10.8)
[2024-05-11 16:49] LABS: Pregnancy Test, Serum Negative (Negative)
[2024-05-11 16:51] LABS: Albumin Globulin Ratio 0.9 (0.9-2); Albumin Level 3.8 gm/dl (3.4-5.0); BUN Creatinine Ratio 13.4 (10-20); Bilirubin,Total 0.4 mg/dl (0.2-1.0); Calcium 9.1 mg/dl (8.6-10.3); Creatinine Clr Calc Pharmacy 147.1 ml/min; Est GFR (African American) 132.9 ml/min; Est GFR (Non-African American) 114.7 ml/min; Globulin 4.2 gm/dl (2.5-4.0)
[2024-05-11] MEDS: OPTIRAY 320 100ml IV ONE (17:50)
[2024-05-11] MEDS: SODIUM CHLORIDE 0.9% 1,000 ML IV SCH (18:14)
--- NOTE | 2024-05-11 18:15 | Emergency Department Note ---
Impression & Plan Sepsis, Abscess of abdominal cavity, Post-operative infection, Leukocytosis, Anemia ED Provider Note NAME: JUN ELY AGE: 34 SEX: F : 1990 ARRIVES VIA: Walk-In INFORMANT: Patient ED PROVIDER(S): Vik Villeda DO CHIEF COMPLAINT: Fever x 6 days associate with dysuria urgency and frequency HPI: Patient is a 34-year-old female who had a hysterectomy performed in [place] on April 17. She notes that over the past 3 days she has been having dysuria, urgency, and frequency. For the past 6 days she has been having fevers of 101. She denies any headache or change in vision. No chest pain or shortness of breath. She notes the belly pain has been improving significantly since the surgery. No other exacerbating or remitting factors. No cough or congestion. ADDITIONAL HISTORY OBTAINED: Per HPI Chronic Medical/Social Conditions Affecting Care: Per HPI PAST MEDICAL HISTORY:See Below PAST SURGICAL HISTORY:See Below FAMILY HISTORY:See Below SOCIAL HISTORY:See Below HOME MEDICATIONS:See Below ALLERGIES:See Below VITALS:See Below PHYSICAL EXAMINATION: GENERAL: Sitting up in bed, alert, well appearing, well nourished, no distress, non-toxic EYE EXAM: normal conjunctiva. OROPHARYNX: mucous membranes are moist NECK: supple, no nuchal rigidity, no adenopathy, non-tender LUNGS: Clear to auscultation. Normal chest wall mechanics HEART: no murmurs, S1 normal and S2 normal ABDOMEN: abdomen soft, non-tender, normo-active bowel sounds, no masses, no rebound or guarding. BACK: Back is symmetrical on inspection and there is no deformity, no midline tenderness, no CVA tenderness. SKIN: no rashes and no bruising UPPER EXTREMITIES: upper extremities are grossly normal. LOWER EXTREMITIES: No pitting edema. NEURO EXAM: Normal sensorium, cranial nerves II-XII grossly intact, normal speech, no gross weakness of arms, no gross weakness of legs. MEDICAL DECISION MAKING: Patient is a 34-year-old female who presents ER for above-stated complaint. IV was established blood was obtained. Labs showed a leukocytosis of 13,000. Mild anemia at 10.8. BMP on LFTs bilirubin was unremarkable. Lactic acid was normal. Lipase was normal. hCG was negative. UA was contaminated and consequently was repeated and was completely clean. CT abdomen pelvis confirms abdominal abscess/postop infection. This was performed by [facility] [facility] and [place]. I spoke with case your [employer] TECHNICIAN here. They recommended admission to medicine. Patient was given IV fluids and IV Zosyn. Was updated at bedside and was admitted for further evaluation management treatment. Consults/Care Managements Discussions: Per [facility] Triage Nursing notes reviewed. Limited review of prior medical records performed Vital Signs: reviewed and remarkable for no significant abnormalities Differential diagnosis: Differential diagnoses includes but is not limited to gastritis, peptic ulcer disease, GERD, gallbladder disease, pancreatitis, small bowel obstruction, appendicitis, diverticulitis, hernia, urinary tract infection, torsion, /ectopic (if female), perforation, trauma, infectious. ER treatment provided: See below Diagnostics interpreted by me include EKG and cardiac monitoring as listed below: -Cardiac Monitoring: An order was placed for continuous cardiac monitoring. The monitor shows a rate of 80 with sinus rhythm. -ECG: none -Laboratory studies:Interpreted by me as stated above in MDM and shown below. Imaging studies: Xrays: As interpreted by me:none CTs show: CT abdomen pelvis per my preliminary interpretation showed no obvious bowel obstruction CT abdomen pelvis per radiology shows abscess Procedures:none Critical Care: None Past Med/Surg History Problem List (Updated 05/11/24 @ 23:04 by Vik Villeda DO) Anemia (Acute) Leukocytosis (Acute) Post-operative infection (Acute) Abscess of abdominal cavity (Acute) Sepsis (Acute) Pelvic abscess in female Arm DVT (deep venous thromboembolism), chronic (Acute) Abnormal uterine bleeding DVT of upper extremity (deep vein thrombosis) Restless leg syndrome Threatened miscarriage in early (Acute) Gallbladder problem (Acute) (Acute) Threatened premature labor (Acute 03/22/14) labor (Acute 04/07/14) Right low back pain (Acute) Right flank pain (Acute) Right sided abdominal pain (Acute) Pain, dental (Acute) Lateral subluxation of left patella (Acute) Diabetes (Chronic) Depression (Chronic) Precipitous delivery, delivered (current hospitalization) (Acute 05/29/14) Anxiety (Chronic) Hx of cholecystectomy (Chronic) Suprapubic abdominal pain (Acute) Medical History Abnormal uterine bleeding Anxiety Depression DVT of upper extremity (deep vein thrombosis) Obesity Restless leg syndrome Surgical History Hx of cholecystectomy Family History Other Deep vein thrombosis Social History Smoking Status: Current every day smoker Preferred Language: Bangladeshi Feels Safe at Home: Yes Allergies Allergies Allergy/AdvReac Type Severity Reaction Status Date / Time No Known Allergies Allergy Verified 05/11/24 22:35 Home Meds Home Medications Medication Instructions Recorded Confirmed albuterol sulfate 90 mcg/actuation 2 puff inhalation Q4 PRN Cough 05/11/24 05/11/24 aerosol inhaler apixaban 2.5 mg tablet (Eliquis) 2.5 mg PO AMHS 05/11/24 05/11/24 docusate sodium 100 mg capsule 100 mg PO AMHS PRN Constipation 05/11/24 05/11/24 doxepin 25 mg capsule 50 mg PO HS 05/11/24 05/11/24 hydrocodone 7.5 mg-acetaminophen 1 tab PO Q6 PRN Pain 05/11/24 05/11/24 325 mg tablet ibuprofen 800 mg tablet 800 mg PO Q8 PRN Pain 05/11/24 05/11/24 montelukast 10 mg tablet 10 mg PO HS 05/11/24 05/11/24 ondansetron HCl 4 mg tablet 4 mg PO Q8 PRN Nausea 05/11/24 05/11/24 ropinirole 2 mg tablet 2 mg PO HS 05/11/24 05/11/24 semaglutide 1 mg/dose (4 mg/3 mL) 0 mg subcut WK 05/11/24 05/11/24 subcutaneous pen injector (Ozempic) sennosides 8.6 mg tablet (Senna 8.6 mg PO DAILY PRN Constipation 05/11/24 05/11/24 Laxative) sertraline 100 mg tablet 150 mg PO HS 05/11/24 05/11/24 Results & Data (ED) Vital Signs Vital Signs - 24 hr 05/11/24 15:37 05/11/24 17:58 05/11/24 18:00 Temperature 36.8 C 36.7 C Temperature Source Oral Oral Pulse Rate 89 Pulse Rate [Finger] 79 Pulse Rate from SpO2 Sensor Respiratory Rate 16 18 Respiratory Effort / Characteristics Non-Labored Spontaneous Non-Labored Spontaneous Respiratory Depth Normal Normal Respiratory Pattern Regular Blood Pressure 119/74 Blood Pressure [Right Arm] 83/50 L 81/47 L Blood Pressure Mean 89 Blood Pressure Mean [Right Arm] 61 58 Pulse Oximetry 96 95 Oxygen Delivery Method Room Air Room Air Sepsis Recent Fever Within 48 Hours Yes Sepsis New/Unexplained Change in Mental Status No Sepsis Action Taken by Nursing No Action Required 05/11/24 18:15 05/11/24 18:30 05/11/24 18:45 Temperature Temperature Source Pulse Rate Pulse Rate [Finger] Pulse Rate from SpO2 Sensor Respiratory Rate 18 20 18 Respiratory Effort / Characteristics Respiratory Depth Respiratory Pattern Blood Pressure Blood Pressure [Right Arm] 89/52 L 82/51 L 83/50 L Blood Pressure Mean Blood Pressure Mean [Right Arm] 64 61 61 Pulse Oximetry 96 95 Oxygen Delivery Method Room Air Room Air Sepsis Recent Fever Within 48 Hours Sepsis New/Unexplained Change in Mental Status Sepsis Action Taken by Nursing 05/11/24 19:37 05/11/24 19:45 Temperature Temperature Source Pulse Rate 74 Pulse Rate [Finger] 72 Pulse Rate from SpO2 Sensor 74 Respiratory Rate 16 17 Respiratory Effort / Characteristics Non-Labored Spontaneous Respiratory Depth Normal Respiratory Pattern Regular Blood Pressure 103/68 Blood Pressure [Right Arm] 103/62 Blood Pressure Mean 79 Blood Pressure Mean [Right Arm] 75 Pulse Oximetry 96 97 Oxygen Delivery Method Room Air Sepsis Recent Fever Within 48 Hours Sepsis New/Unexplained Change in Mental Status Sepsis Action Taken by Nursing Laboratory Data 05/11/24 16:05 05/11/24 16:05 Lab Results 05/11/24 05/11/24 05/11/24 Range/Units 16:05 16:15 18:57 WBC 13.22 H (4.8-10.8) K/ul RBC 3.97 L (4.20-5.40) M/uL Hgb 10.8 L (12.0-16.0) g/dl Hct 32.4 L (37.0-47.0) % MCV 81.6 (80.0-100.0) fL MCH 27.2 (25.0-34.0) pg MCHC 33.3 (32.0-36.0) g/dL RDW Std Deviation 40.6 (36.4-46.3) fL RDW Coeff of Reji 13.5 (11.5-14.5) % Plt Count 458 H (130-400) K/uL MPV 8.2 L (9.4-12.4) fL Immature Gran % (Auto) 0.5 % Neut % (Auto) 66.9 % Lymph % (Auto) 23.3 % Dolores % (Auto) 7.4 % Eos % (Auto) 1.4 % Baso % (Auto) 0.5 % Neut # (Auto) 8.86 H (1.40-6.50) K/uL Lymph # (Auto) 3.08 (1.20-3.40) K/uL Dolores # (Auto) 0.98 H (0.11-0.59) K/uL Eos # (Auto) 0.18 (0.00-0.50) K/uL Baso # (Auto) 0.06 (0.00-0.20) K/uL Immature Gran # (Auto) 0.06 (0.01-0.20) K/uL Sodium 135 L (136-145) mmol/L Potassium 4.0 (3.5-5.1) mmol/L Chloride 102 (98-107) mmol/L Carbon Dioxide 25 (21-32) mmol/L Anion Gap 8 (3-11) BUN 9 (6-23) mg/dl Creatinine 0.67 (0.6-1.2) mg/dl Est Cr Clr Drug Dosing 147.1 ml/min Est GFR ( Amer) 132.9 ml/min Est GFR (Non-Af Amer) 114.7 ml/min BUN/Creatinine Ratio 13.4 (10-20) Glucose 91 (70-99(Fasting)) mg/dl Lactate 0.5 (0.4-2.0) mmol/L Calcium 9.1 (8.6-10.3) mg/dl Total Bilirubin 0.4 (0.2-1.0) mg/dl AST 14 (13-39) U/L ALT 21 (7-52) U/L Alkaline Phosphatase 75 (34-104) U/L Total Protein 8.0 (6.0-8.3) gm/dl Albumin 3.8 (3.4-5.0) gm/dl Globulin 4.2 H (2.5-4.0) gm/dl Albumin/Globulin Ratio 0.9 (0.9-2) Lipase 13 (11-82) U/L HCG, Qual Negative (Negative) Urine Color Yellow Urine Appearance Cloudy A (Clear) Urine pH 6.5 (4.5-7.5) Ur Specific [place] 1.015 (1.000-1.030) Urine Protein Trace H (Negative) Urine Glucose (UA) Negative (Negative) Urine Ketones Negative (Negative) Urine Blood Trace H (Negative) Urine Nitrite Negative (Negative) Urine Bilirubin Negative (Negative) Urine Urobilinogen Negative (Negative) Ur Leukocyte Esterase 3+ H (Negative) Urine WBC (Auto) >50 H (0-5) /hpf Urine RBC (Auto) 3-5 H (0-2) /hpf U Hyaline Cast (Auto) 0-2 (0-2) /lpf U Epithel Cells (Auto) 11-20 H (0-2) /hpf Urine Bacteria (Auto) 2+ H (None Seen) Administered Medications Discontinued Medications Sodium Chloride (Nss) 1,000 mls @ 999 mls/hr IV .Q1H1M THERESE Stop: 05/11/24 20:15 Last Infusion: 05/11/24 20:41 Dose: Infused Documented By: Admin: 05/11/24 19:25 Dose: 999 mls/hr Documented By: Infusion: 05/11/24 19:19 Dose: Infused Documented By: Admin: 05/11/24 18:14 Dose: 999 mls/hr Documented By: INDRA Ceftriaxone Sodium (Rocephin) 2,000 mg in 50 mls @ 100 mls/hr IV NOW STA Stop: 05/11/24 18:40 Last Infusion: 05/11/24 19:13 Dose: Infused Documented By: Admin: 05/11/24 18:19 Dose: 100 mls/hr Documented By: INDRA Metronidazole (Flagyl) 500 mg in 100 mls @ 100 mls/hr IV NOW STA; Protocol Stop: 05/11/24 20:02 Last Infusion: 05/11/24 20:41 Dose: Infused Documented By: Admin: 05/11/24 19:24 Dose: 100 mls/hr Documented By: PA Ioversol (Optiray 320 100ml) 93 ml IV ONCE ONE Stop: 05/11/24 17:51 Last Admin: 05/11/24 17:50 Dose: 93 ml Documented By: EDK Imaging Data Radiologist's Impression: Abdomen/Pelvis CT 05/11/24 16:58 CT abd pelvis IV con only CLINICAL HISTORY: fever, dysuria, recent hysterectomy TECHNIQUE: Helical axial images of the abdomen and pelvis were obtained and displayed. Automated dose lowering techniques and/or adjustment according to patient size were utilized for this exam. This exam was performed with intravenous contrast. CT DOSE: 1324.46 mGy.cm COMPARISON: Comparison is made to CT abdomen pelvis 07/30/2022 FINDINGS: Lower chest: No acute abnormality. Liver: Hepatic steatosis is noted. Gallbladder and biliary tree: Patient is status post cholecystectomy. No intra- or extrahepatic biliary ductal dilation. Pancreas: Unremarkable, no focal lesions. Spleen: Unremarkable. Adrenals: Unremarkable. Kidneys and ureters: Unremarkable. Bladder: Diffuse homogeneous wall thickening is seen. Reproductive organs: Status post hysterectomy. There is a rim-enhancing 33 x 59 mm fluid collection surrounding soft tissue stranding. Bowel: The appendix is normal. Lymph nodes Retroperitoneal: Subcentimeter lymph nodes are noted. Pelvic: Unremarkable. Mesenteric: Unremarkable. Peritoneum: Normal. Vessels: Unremarkable. Abdominal wall: Unremarkable. Bones: Degenerative changes in the visualized spine. IMPRESSION: Post surgical changes of hysterectomy with a rim-enhancing fluid collection at the surgical site with surrounding fat stranding. Findings are concerning for postsurgical abscess. Reactive lymph nodes are seen. ACT 112: Negative or not required by law. Electronically signed by: Sal Leos M.D. 05/11/2024 6:52 PM Discharge Plan Visit Data Chief Complaint: Back Injury/Pain Stated Complaint: FEVER 6 DAYS, PAINFUL UNIRINATION ED Provider: Vik Villeda Discharge Problem: Sepsis, Abscess of abdominal cavity, Post-operative infection, Leukocytosis, Anemia Patient Disposition: Admitted As Inpatient Discharge Instructions Interventions: ED Discharge Assessment Last Done: 05/11/24 22:59 Discharge Problem: Sepsis Qualifiers: Sepsis type: sepsis due to unspecified organism Sepsis acute organ dysfunction status: unspecified Qualified Code(s): A41.9 - Sepsis, unspecified organism Post-operative infection Qualifiers: Encounter type: initial encounter Postoperative infection type: unspecified type Qualified Code(s): T81.40XA - Infection following a procedure, unspecified, initial encounter Leukocytosis Qualifiers: Leukocytosis type: unspecified Qualified Code(s): D72.829 - Elevated white blood cell count, unspecified Anemia Qualifiers: Anemia type: unspecified type Qualified Code(s): D64.9 - Anemia, unspecified
[2024-05-11] MEDS: cefTRIAXone SODIUM 2,000 MG/50 ML BAG IV STA (18:19)
--- NOTE | 2024-05-11 18:53 | CT Scan Report ---
CT abd pelvis IV con only CLINICAL HISTORY: fever, dysuria, recent hysterectomy TECHNIQUE: Helical axial images of the abdomen and pelvis were obtained and displayed. Automated dose lowering techniques and/or adjustment according to patient size were utilized for this exam. This e xam was performed with intravenous contrast. CT DOSE: 1324.46 mGy.cm COMPARISON: Comparison is made to CT abdomen pelvis 07/30/2022 FINDINGS: Lower chest: No acute abnormality. Liver: Hepatic steatosis is noted. Gallbladder and biliary tree: Patient is status post cholecystectomy. No intra- or extrahepatic bilia ry ductal dilation. Pancreas: Unremarkable, no focal lesions. Spleen: Unremarkable. Adrenals: Unremarkable. Kidneys and ureters: Unremarkable. Bladder: Diffuse homogeneous wall thickening is seen. Reproductive organs: Status post hysterectomy. There is a rim-enhancing 33 x 59 mm fluid collection s urrounding soft tissue stranding. Bowel: The appendix is normal. Lymph nodes Retroperitoneal: Subcentimeter lymph nodes are noted. Pelvic: Unremarkable. Mesenteric: Unremarkable. Peritoneum: Normal. Vessels: Unremarkable. Abdominal wall: Unremarkable. Bones: Degenerative changes in the visualized spine. IMPRESSION: Post surgical changes of hysterectomy with a rim-enhancing fluid collection at the surgical site with surrounding fat stranding. Findings are concerning for postsurgical abscess. Reactive lymph nodes ar e seen. ACT 112: Negative or not required by law. Electronically signed by: Sal Leos M.D. 05/11/2024 6:52 PM
[2024-05-11] MEDS: metroNIDAZOLE 500 MG/100 ML BAG IV STA (19:24)
--- NOTE | 2024-05-11 21:00 | History & Physical Report ---
Date of Service May 11, 2024 Assessment & Plan (1) Pelvic abscess in female: Plan: 34-year-old female with past medical history significant for insulin resistance, metabolic syndrome, morbid obesity, mild intermittent asthma, superficial thrombophlebitis of right upper extremity, history of primary dysmenorrhea, restless leg syndrome, migraine, Antithrombin III deficiency, depression and mood disorder who recently had a hysterectomy performed at [facility] on April 17 presents with burning micturition and fevers and pain at surgical site. Patient states last 6 days she is having temperatures at home. And lately she has developed burning micturition. She also has pain at surgical region but was told that it was mostly postprocedure. Denies any chest pain or shortness of breath. No cough. No nausea or vomiting. Appetite is okay. No headaches. No runny nose or sore throat. Hemodynamics okay. Patient has Antithrombin III deficiency and after hysterectomy she was prescribed Eliquis for 4 weeks. History of blood clot in right upper extremity about a year ago which was the first time she had a blood clot. Pelvic abscess in the recent hysterectomy site about 33 x 59 mm fluid collection ER discussed with the coroner on-call and advised for IV antibiotics for now will place on IV Vanco and Zosyn Obgyn consult in a.m. further recommendations n.p.o. from midnight, IV fluids UTI antibiotics as above will follow cultures history of Antithrombin 3 deficiency history of blood clot in right upper extremity last year currently on Eliquis for 4 weeks post hysterectomy will hold Eliquis tonight and give a dose of heparin subcu restart Eliquis if no procedures planned morbid obesity counseling restless leg syndrome on Requip mood disorder and depression Home meds DVT prophylaxis SCDs and restart Eliquis as soon as possible disposition medical floor full code. History of Present Illness Chief Complaint: Pelvic abscess and UTI Primary Care Provider: Marta Zendejas PA-C 34-year-old female with past medical history significant for insulin resistance, metabolic syndrome, morbid obesity, mild intermittent asthma, superficial thrombophlebitis of right upper extremity, history of primary dysmenorrhea, restless leg syndrome, migraine, Antithrombin III deficiency, depression and mood disorder who recently had a hysterectomy performed at [facility] on April 17 presents with burning micturition and fevers and pain at surgical site. Patient states last 6 days she is having temperatures at home. And lately she has developed burning micturition. She also has pain at surgical region but was told that it was mostly postprocedure. Denies any chest pain or shortness of breath. No cough. No nausea or vomiting. Appetite is okay. No headaches. No runny nose or sore throat. Hemodynamics okay. Patient has Antithrombin III deficiency and after hysterectomy she was prescribed Eliquis for 4 weeks. History of blood clot in right upper extremity about a year ago which was the first time she had a blood clot. Past medical history. As mentioned above Past surgical history. Cystoscopy. Laparoscopic fulguration of oviducts. Cholecystectomy. Vaginal hysterectomy with removal of tubes And ovary. Social history. . Quit smoking 2009. Vapes reviewed as per epic. No alcohol use. Marijuana on weekends as per epic. Family history. Mother has COPD. Maternal great uncle had colon cancer. Maternal grandfather had diabetes. [place]. And stroke. Paternal grandmother had hypertension, heart disorder and stroke. Allergies Allergy/AdvReac Type Severity Reaction Status Date / Time No Known Allergies Allergy Verified 05/11/24 22:35 Home Medications Medication Instructions Recorded Confirmed Type albuterol sulfate 90 mcg/actuation 2 puff inhalation Q4 PRN Cough 05/11/24 05/11/24 History aerosol inhaler apixaban 2.5 mg tablet (Eliquis) 2.5 mg PO AMHS 05/11/24 05/11/24 History docusate sodium 100 mg capsule 100 mg PO AMHS PRN Constipation 05/11/24 05/11/24 History doxepin 25 mg capsule 50 mg PO HS 05/11/24 05/11/24 History hydrocodone 7.5 mg-acetaminophen 1 tab PO Q6 PRN Pain 05/11/24 05/11/24 History 325 mg tablet ibuprofen 800 mg tablet 800 mg PO Q8 PRN Pain 05/11/24 05/11/24 History montelukast 10 mg tablet 10 mg PO HS 05/11/24 05/11/24 History ondansetron HCl 4 mg tablet 4 mg PO Q8 PRN Nausea 05/11/24 05/11/24 History ropinirole 2 mg tablet 2 mg PO HS 05/11/24 05/11/24 History semaglutide 1 mg/dose (4 mg/3 mL) 0 mg subcut WK 05/11/24 05/11/24 History subcutaneous pen injector (Ozempic) sennosides 8.6 mg tablet (Senna 8.6 mg PO DAILY PRN Constipation 05/11/24 05/11/24 History Laxative) sertraline 100 mg tablet 150 mg PO HS 05/11/24 05/11/24 History Past Med/Surg History Problem List (Updated 05/11/24 @ 23:04 by Vik Villeda, DO) Anemia (Acute) Leukocytosis (Acute) Post-operative infection (Acute) Abscess of abdominal cavity (Acute) Sepsis (Acute) Pelvic abscess in female Arm DVT (deep venous thromboembolism), chronic (Acute) Abnormal uterine bleeding DVT of upper extremity (deep vein thrombosis) Restless leg syndrome Threatened miscarriage in early (Acute) Gallbladder problem (Acute) (Acute) Threatened premature labor (Acute 03/22/14) labor (Acute 04/07/14) Right low back pain (Acute) Right flank pain (Acute) Right sided abdominal pain (Acute) Pain, dental (Acute) Lateral subluxation of left patella (Acute) Diabetes (Chronic) Depression (Chronic) Precipitous delivery, delivered (current hospitalization) (Acute 05/29/14) Anxiety (Chronic) Hx of cholecystectomy (Chronic) Suprapubic abdominal pain (Acute) Medical History Abnormal uterine bleeding Anxiety Depression DVT of upper extremity (deep vein thrombosis) Obesity Restless leg syndrome Surgical History Hx of cholecystectomy Family History Other Deep vein thrombosis Social History Smoking Status: Never smoker Second Hand Exposure: Yes; Do You Dip or Chew Tobacco: No; Hx Alcohol Use: No Hx Substance Use: Yes Last Used Substance: Days (ago) Last Used Substance Other:: Last week Substance Use Type Other:: Medical Marijuana Preferred Language: Uzbek Communication Ability: Effective [employer] Required: No Beliefs That Will Affect Care: None Current Living Situation: Spouse and Family Other Information That Helps Us Care for You: No Feels Safe at Home: Yes Safety Concerns: Feels Safe At This Time Review of Systems Review of Systems: All systems reviewed & are unremarkable except as noted in HPI & below Physical Exam Physical Exam: General- Not in distress. Head- atraumatic Eyes- PERRL. ENT- oropharynx clear Neck- supple, no JVD. Lungs- clear to auscultation no wheezing or crackles. Heart- regular rhythm; no murmur, no gallop. Abdomen- normal bowel sounds, soft, nontender, no distension. Extremities- no pretibial edema, no erythema seen. Neuro- alert, oriented PERRL, no facial palsy; no dysarthria; moves etxremities. Results & Data Results & Data Vital Signs (Past 12 Hours) Vital Signs Temp Pulse Pulse Resp BP BP Pulse Ox 05/11/24 19:37 72 16 103/62 96 05/11/24 18:45 18 83/50 L 05/11/24 18:30 20 82/51 L 95 05/11/24 18:15 18 89/52 L 96 05/11/24 18:00 36.7 C 81/47 L 05/11/24 17:58 79 18 83/50 L 95 05/11/24 15:37 36.8 C 89 16 119/74 96 O2 Del Method 05/11/24 19:37 Room Air 05/11/24 18:45 05/11/24 18:30 Room Air 05/11/24 18:15 Room Air 05/11/24 18:00 05/11/24 17:58 Room Air 05/11/24 15:37 Room Air Diagnostic Findings Laboratory Results WBC 13.22 K/ul (4.8-10.8) H 05/11/24 16:05 RBC 3.97 M/uL (4.20-5.40) L 05/11/24 16:05 Hgb 10.8 g/dl (12.0-16.0) L 05/11/24 16:05 Hct 32.4 % (37.0-47.0) L 05/11/24 16:05 MCV 81.6 fL (80.0-100.0) 05/11/24 16:05 MCH 27.2 pg (25.0-34.0) 05/11/24 16:05 MCHC 33.3 g/dL (32.0-36.0) 05/11/24 16:05 RDW Std Deviation 40.6 fL (36.4-46.3) 05/11/24 16:05 RDW Coeff of Reji 13.5 % (11.5-14.5) 05/11/24 16:05 Plt Count 458 K/uL (130-400) H 05/11/24 16:05 MPV 8.2 fL (9.4-12.4) L 05/11/24 16:05 Immature Gran % (Auto) 0.5 % 05/11/24 16:05 Neut % (Auto) 66.9 % 05/11/24 16:05 Lymph % (Auto) 23.3 % 05/11/24 16:05 [place] % (Auto) 7.4 % 05/11/24 16:05 Eos % (Auto) 1.4 % 05/11/24 16:05 Baso % (Auto) 0.5 % 05/11/24 16:05 Neut # (Auto) 8.86 K/uL (1.40-6.50) H 05/11/24 16:05 Lymph # (Auto) 3.08 K/uL (1.20-3.40) 05/11/24 16:05 Butler # (Auto) 0.98 K/uL (0.11-0.59) H 05/11/24 16:05 Eos # (Auto) 0.18 K/uL (0.00-0.50) 05/11/24 16:05 Baso # (Auto) 0.06 K/uL (0.00-0.20) 05/11/24 16:05 Immature Gran # (Auto) 0.06 K/uL (0.01-0.20) 05/11/24 16:05 Sodium 135 mmol/L (136-145) L 05/11/24 16:05 Potassium 4.0 mmol/L (3.5-5.1) 05/11/24 16:05 Chloride 102 mmol/L (98-107) 05/11/24 16:05 Carbon Dioxide 25 mmol/L (21-32) 05/11/24 16:05 Anion Gap 8 (3-11) 05/11/24 16:05 BUN 9 mg/dl (6-23) 05/11/24 16:05 Creatinine 0.67 mg/dl (0.6-1.2) 05/11/24 16:05 Est Cr Clr Drug Dosing 147.1 ml/min 05/11/24 16:05 Est GFR ( Amer) 132.9 ml/min 05/11/24 16:05 Est GFR (Non-Af Amer) 114.7 ml/min 05/11/24 16:05 BUN/Creatinine Ratio 13.4 (10-20) 05/11/24 16:05 Glucose 91 mg/dl (70-99(Fasting)) 05/11/24 16:05 Lactate 0.5 mmol/L (0.4-2.0) 05/11/24 18:57 Calcium 9.1 mg/dl (8.6-10.3) 05/11/24 16:05 Total Bilirubin 0.4 mg/dl (0.2-1.0) 05/11/24 16:05 AST 14 U/L (13-39) 05/11/24 16:05 ALT 21 U/L (7-52) 05/11/24 16:05 Alkaline Phosphatase 75 U/L (34-104) 05/11/24 16:05 Total Protein 8.0 gm/dl (6.0-8.3) 05/11/24 16:05 Albumin 3.8 gm/dl (3.4-5.0) 05/11/24 16:05 Globulin 4.2 gm/dl (2.5-4.0) H 05/11/24 16:05 Albumin/Globulin Ratio 0.9 (0.9-2) 05/11/24 16:05 Lipase 13 U/L (11-82) 05/11/24 16:05 HCG, Qual Negative (Negative) 05/11/24 16:05 Urine Color Yellow 05/11/24 Unknown Urine Appearance Clear (Clear) 05/11/24 Unknown Urine pH 7.0 (4.5-7.5) 05/11/24 Unknown Ur Specific [place] 1.030 (1.000-1.030) 05/11/24 Unknown Urine Protein Negative (Negative) 05/11/24 Unknown Urine Glucose (UA) Negative (Negative) 05/11/24 Unknown Urine Ketones Negative (Negative) 05/11/24 Unknown Urine Blood Negative (Negative) 05/11/24 Unknown Urine Nitrite Negative (Negative) 05/11/24 Unknown Urine Bilirubin Negative (Negative) 05/11/24 Unknown Urine Urobilinogen Negative (Negative) 05/11/24 Unknown Ur Leukocyte Esterase Negative (Negative) 05/11/24 Unknown Urine WBC (Auto) >50 /hpf (0-5) H 05/11/24 16:15 Urine RBC (Auto) 3-5 /hpf (0-2) H 05/11/24 16:15 U Hyaline Cast (Auto) 0-2 /lpf (0-2) 05/11/24 16:15 U Epithel Cells (Auto) 11-20 /hpf (0-2) H 05/11/24 16:15 Urine Bacteria (Auto) 2+ (None Seen) H 05/11/24 16:15 Impressions Abdomen/Pelvis CT 05/11/24 16:58 CT abd pelvis IV con only CLINICAL HISTORY: fever, dysuria, recent hysterectomy TECHNIQUE: Helical axial images of the abdomen and pelvis were obtained and displayed. Automated dose lowering techniques and/or adjustment according to patient size were utilized for this exam. This exam was performed with intravenous contrast. CT DOSE: 1324.46 mGy.cm COMPARISON: Comparison is made to CT abdomen pelvis 07/30/2022 FINDINGS: Lower chest: No acute abnormality. Liver: Hepatic steatosis is noted. Gallbladder and biliary tree: Patient is status post cholecystectomy. No intra- or extrahepatic biliary ductal dilation. Pancreas: Unremarkable, no focal lesions. Spleen: Unremarkable. Adrenals: Unremarkable. Kidneys and ureters: Unremarkable. Bladder: Diffuse homogeneous wall thickening is seen. Reproductive organs: Status post hysterectomy. There is a rim-enhancing 33 x 59 mm fluid collection surrounding soft tissue stranding. Bowel: The appendix is normal. Lymph nodes Retroperitoneal: Subcentimeter lymph nodes are noted. Pelvic: Unremarkable. Mesenteric: Unremarkable. Peritoneum: Normal. Vessels: Unremarkable. Abdominal wall: Unremarkable. Bones: Degenerative changes in the visualized spine. IMPRESSION: Post surgical changes of hysterectomy with a rim-enhancing fluid collection at the surgical site with surrounding fat stranding. Findings are concerning for postsurgical abscess. Reactive lymph nodes are seen. ACT 112: Negative or not required by law. Electronically signed by: Sal Leos M.D. 05/11/2024 6:52 PM Code Status & VTE Plan VTE Prophylaxis Plan VTE Prophylaxis will be ordered: Yes
[2024-05-11 21:04] LABS: Appearance Urine Clear (Clear); Bilirubin Urine Negative (Negative); Blood Urine Negative (Negative); Color Urine Yellow; Glucose Urine UA Negative (Negative); Ketones Urine Negative (Negative); Leukocyte Esterase Urine Negative (Negative); Nitrite Urine Negative (Negative); Protein Urine Negative (Negative); Urobilinogen Urine Negative (Negative)
--- OUTSIDE RECORDS SUMMARY | 2024-05-11 21:28 | External Medical Summary | Summary of Care ---
Author Name Unknown Organization [facility] [address] [place] [address] Phone [phone] Care Team Providers Care Home Delivery Driver Name Role Phone Marta Zendejas PA-C Primary Care Provider [phone] Reason for Visit * Reason Onset Date Comments Appointment 04/20/2024 Encounter Details Date Type Department Care Team (Late st Contact Info) Description 04/20/2024 Telephone Gynecology/Obstetrics [facility] [address], [place] [phone] Areli Werner MD [address], [place] [phone] Appointment Allergies Active Allergy Reactions Criticality Noted Date Comments Pollen 05/27/2020 documented as of this encounter (statuses as of 04/20/2024) Medications Medication Sig Dispensed Refills Start Date End Date Status Sertraline HCl 100 MG Oral Tablet (Zoloft)Indication s:Mood disorder (HCC),Stress at home,Family circumstance TAKE 1 & 1/2 (ONE & ONE-HALF) TABLETS BY MOUTH ONCE DAILY 135 Tablet 3 06/10/2023 Active rOPINIRole HCl 2 MG Oral Tablet (Requip)Indication s:Restless legs syndrome Take 1 Tablet by mouth at bedtime. 90 Tablet 1 11/04/2023 Active Montelukast Sodium 10 MG Oral Tablet (Singulair) TAKE 1 TABLET BY MOUTH ONCE DAILY AT BEDTIME 90 Tablet 3 12/30/2023 Active Ozempic (0.25 or 0.5 MG/DOSE) 2 MG/3ML Solution Pen-injector (Semaglutide(0.25 or 0.5MG/DOS)) Inject 0.5 mg under the skin once a week. 3 mL 02/07/2024 Active Albuterol Sulfate HFA 108 (90 Base) MCG/ACT Inhalation Aerosol Solution Inhale 2 Puffs by mouth every 6 hours as needed for Cough. 18 g 3 02/10/2024 Active Ozempic (1 MG/DOSE) 4 MG/3ML Subcutaneous Solution Pen-injector (Semaglutide (1 MG/DOSE))Indicatio ns:Body mass index (BMI) of 45.0 to 49.9 in adult (HCC) Inject 1 mg under the skin once a week. 9 mL 1 03/02/2024 Active Doxepin HCl 25 MG Oral Capsule (SINEquan)Indicati ons:Persistent insomnia TAKE 1 TO 2 CAPSULES BY MOUTH AT BEDTIME ALLOW FOR 8 HOURS OF DOWNTIME 180 Capsule 1 03/13/2024 Active Ibuprofen 800 MG Oral Tablet (Motrin) Take 1 Tablet by mouth every 8 hours as needed for Pain, Mild, Pain, Moderate or Pain, Severe. Alternate with Acetaminophen 30 Tablet 1 04/17/2024 Active Docusate Sodium 100 MG Oral Capsule (Colace) Take 1 Capsule by mouth in the morning and 1 Capsule before bedtime. 10 Capsule 04/17/2024 Active Ondansetron HCl 4 MG Oral Tablet Take 1 Tablet by mouth every 8 hours as needed for Nausea. 20 Tablet 04/17/2024 Active Senna 8.6 MG Oral Capsule Take 1 Tablet by mouth daily as needed for Constipation for up to 1 dose. 14 Capsule 04/17/2024 Active HYDROcodone-Acetam inophen 7.5-325 MG Oral Tablet Take 1 Tablet by mouth every 6 hours as needed for Pain, Moderate or Pain, Severe. 16 Tablet 04/17/2024 Active Apixaban 2.5 MG Oral Tablet (Eliquis) Take 1 Tablet by mouth in the morning and 1 Tablet before bedtime. Do all this for 28 days. 56 Tablet 04/17/2024 Active documented as of this encounter (statuses as of 04/20/2024) Active Problems Problem Noted Date Diagnosed Date Abnormal uterine bleeding (AUB) 04/17/2024 Primary dysmenorrhea 04/17/2024 Metabolic syndrome 03/02/2024 Major depressive disorder wi th single episode, in full remission 02/10/2024 Insulin resistance 10/25/2023 Restless legs syndrome 04/25/2023 Mild intermittent asthma, uncomplicated 04/25/20 23 Mood disorder 04/25/2023 Superficial thrombophlebitis of right upper extr emity 03/22/2023 Overview: Right basilic vein superficial thrombophlebitis. Diagnoses 07/2022 Body mass index (BMI) of 45.0 to 49.9 in adult 0 01/03/2023 Overview: Per Obesity protocol - Per Obesity protocol - Per Obesity protocol - Per Obesity protocol Hyperinsulinemia 06/22/2016 Viral URI 01/27/2010 Migraine 01/06/2009 Overview: None in years. Antithrombin III deficiency documented as of this encounter (statuses as of 04/20/2024) Resolved Problems Problem Noted Date Diagnosed Date Resolved Date Endometriosis 04/25/2023 04/09/2024 Major depressive disorder with single episode 04/25/20 23 02/10/2024 Prediabetes 04/04/2023 03/07/2024 Overview: Per Prediabetes protocol Body mass index (BMI) of 50. 0 to 59.9 in adult 04/05/2022 01/05/2023 Overview: Per Obesity protocol - Per Obesity protocol - Per Obesity protocol Food insecurity 06/01/2021 04/07/2023 Overview: Per [facility] Protocol Body mass index (BMI) of 45. 0 to 49.9 in adult 08/04/2020 04/08/2022 Overview: Per Obesity protocol - Per Obesity protocol Body mass index (BMI) of 40. 0 to 44.9 in adult 07/02/2019 08/07/2020 Overview: Per Obesity protocol Mastalgia in female 10/26/2017 03/22/20 23 Anxiety in , antepartum 12/12/2013 06/21/2014 Overview: Taking sertraline 75mg daily at NOB visit; desires to continue med; feels stable. ADVANCE DIRECTIVE INFORMATION 11/27/2013 09/05/2017 Overview: No, Advance Directive brochure offered , patient declined. Obesity in , antepartum 11/27/2013 04/05/2017 Abnormal Papanicolaou smear complicating , antepartum 10/19/2013 06/21/2014 Overview: Pap at NOB visit showing HGSIL; needs colpo in 2nd trimester --> done at 24 weeks, positive aceto-white lesions, no biopsies taken. Repeat colpo . Encounter for supervision of other normal 10/04/2013 06/21/2014 Overview: Desires PP BTL. Pt has signed tubal consent. Normal anatomy scan. ICD-10 update of inactive term Depression complicating , antepartum 10/04/20 13 12/12/2013 Overview: Taking sertraline 75mg daily at NOB visit; desires to continue med H/O delivery, currently 10/04/2013 06/21/2014 Overview: 2nd with contractions with cervical dilation, pt [place] [facility] at [place] with cervical dilation of 4-5cm, 80% effaced. She delivered at [facility] at 35w6d. MFM consult Threatened premature labor, antepartum 09/24/2011 10/22/2011 Overview: VE 4cm. Steriod benfited. Admitted and [place] [facility] [place] 4[place] NST 2x/week and ASHISH And pelvic exam q visit Jose F Padilla MD 09/24/2011 11:39 AM ICD-10 update of inactive term INFORMATION 09/15/2011 09/24/2011 Overview: 09/15/2011: cervical exam : 2cm/soft. Discussed w/MFM- recommendation is follow w/toco and cervical exam Hx of short cervix with last 04/19/2011 10/22/2011 Overview: Pt reports hx of cervical shortening in last that required serial cervical length& BMTX . Pt went on to deliver at 38 weeks Per MFM on 06/08/11: The transvaginal cervical length was 3.7 cm and 3.3 with fundal pressure. There was no evidence of funneling. I told her that, although her cervix was shortened during her last , it is reassuring that she delivered at 38 weeks gestation. I do not think that this was due to the bedrest or the oral tocolytics. The fact that she has a prior full term delivery should reduce her chance of delivering in a subsequent . At this point, I am reassured with her US findings today. I do not think that a cerclage placement or prophylactic steroids would benefit her in this . At this point in time, I see no need for follow-up. Encounter for supervision of other normal 04/08/2011 10/22/2011 Overview: Shortened cervix in first , was on bedrest, delivered at term. Cervical length on dating u/s 2.4cm. MFM consult placed. Patient declines flu vaccine. 08/04/2011 Charley Puente RN ICD-10 update of inactive term ACUTE STRESS 07/03/2010 12/12/2013 Diarrhea 07/03/2010 12/12/2013 Tobacco use disorder 07/03/2010 011 Obesity, Class II, BMI 35-39 .9, isolated (see actual BMI) 04/06/2010 07/03/2010 Overview: Per Obesity Protocol, #19 Anemia of mother, complicati ng , childbirth, or the puerperium, unspecified as to episode of care(648.20) 03/10/2010 05/02/2010 Overview: FeSO4 supplement ordered 03/10/10. Threatened premature labor, antepartum 02/18/2010 05/02/2010 Overview: Seen in L+D at 28 wks - betameth and procardia FFN 02/20 neg Cx length 1.4 cm MFM appt 03/04 - cx length unchanged, 1.4, ASHISH = 13 FFN 03/05 neg FFN 6/ neg ICD-10 update of inactive term Cough 01/27/2010 04/08/2011 Allergic rhinitis 01/27/2010 12/12/2013 Vertigo 01/27/2010 12/12/2013 OB Shamir Stephenson HBP 09/16/200905/25 Overview: Patient received H1N1 vaccine. 09/16/2009 Elba Lopez RN 02/19/2010 Betamethasone given Lacey RYAN Gastritis and gastroduodenitis 06/10/2009 12/12/2013 Irritable bowel syndrome 01/29/2009 Flatulence, eructation and gas pain 01/29/2009 09/16/2009 FOREIGN BODY IN MOUTH - tongue piercing 01/29/2009 12/12/2013 Major depressive disorder 07/15/2008 Overview: Celexa 40mg daily ICD-10 update of inactive term Panic disorder 10/04/2007 12/12/2013 Chest pain 10/04/2007 04/08/2011 documented as of this encounter (statuses as of 04/20/2024) Immunizations Name Administration Dates Next Due COVID-19 mRNA, LNP-s, No Pre serve, 2-Dose Series ([employer] 11/22/2020,11/12/2020 H1N1 2009 Influenza, IM 09/16/2009 HPV Vaccine, 4-Valent 06/05/2015 08/05/2015 PPD 05/12/2016,04/16/2016 Seasonal Influenza Virus Vac cine, Unspecified Formulation 09/11/2018 TD, Preservative Free 09/24/2020 TDAP, Age 7 and older, IM (Adacel) 08/14/2010, documented as of this encounter Social History Tobacco Use Types Packs/Day Years Used Date Smoking Tobacco: Former Cigarettes Q uit: 07/24/2010 Passive Smoke Exposure: Never Smokeless Tobacco: Never Alcohol Use Standard Drinks/Week Comments No 0 (1 standard drink = 0.6 oz pur e alcohol) PHQ-2 Answer Date Recorded PHQ Adult Total Score 0 05/20/2023 Hunger Vital Sign Answer Date Recorded Within the past 12 months, y ou worried that your food would run out before you got the money to buy more. Never true 03/31/20 23 Within the past 12 months, t he food you bought just didn't last and you didn't have money to get more. Never true 03/31/2023 Utilities Answer Date Recorded Do you have trouble paying y our heating, water, or electric bill? (Adult - for ages 18 years and over) Not on file 04/10/2024 Is your family able to pay t he heat, water, or electric bill? (Household - for ages 0-17 years) Not on file 04/10/2024 Does your family have access to good internet? (Household - for ages 0-17 years) Not on file 04/10/2024 Social Connections Answer Date Recorded How often do you feel lonely or isolated from those around you? (Adult - for ages 18 years and over) Not on file 04/10/2024 Sex and Gender Information Value Date Recorded Sex Assigned at Female 03/31/2023 12:23 PM EDT Gender Identity Female 03/31/2023 12:23 PM EDT Sexual Orientation Straight 03/31/2023 12 :23 PM EDT Job Start Date Occupation Industry Not on file Not on file Not on file documented as of this encounter Miscellaneous Notes * Telephone Encounter - Lakisha Glass OSA - 04/20/2024 10:45 AM EDT Pt lvm stating she needs a f/u from surgery, not sure what she needs. Please advise. documented in this encounter Plan of Treatment Upcoming Encounters Date Type Department Care Team (Late st Contact Info) Description 09/04/2024 10:00 AM EST Office Visit [facility] [address] [place] [phone] Marta Zendejas PA-C [address] [facility] [place] [id number] Health Maintenance Due Date Last Done Comments Pneumococcal Vaccine: Pediatrics (0 to 5 Years) and At-Risk Patients (6 to 64 Years) (1 of 2 - PCV) 02/10/1996 Hepatitis C Screening 02/10/2008 Hepatitis B (1 of 3 - 19+ 3-dose series) 2009 GARDASIL-HPV IMMUNIZATION SERIES (2 - 3-dose series) 07/03/2015 06/05/2015 *SPIROMETRY ONCE FOR ASTHMA-ADULT 04/28/2023 COVID-19 Vaccine (3 - 2022- season) 2023 11/22/2020, 11/12/2020 Depression Monitoring 05/20/2024 05/20/2023 Influenza Vaccine (FLU shot) (Season Ended) 2024 09/11/2018, 09/16/2009 DTaP,Tdap,and Td Vaccines (4 - Td or Tdap) 09/24/2030 09/24/2020, 08/14/2010, 07/15/2008 Cervical Cancer Screening Discontinued HPV/Co-Test Discontinued 03/22/2023 Pap Smear Discontinued 03/22/2023, 12/22, 01/17/2017, Additional history exists MENINGOCOCCAL (MENACTRA/MENVEO) Aged Out No longer eligible based on patient's age to complete this topic documented as of this encounter Medical Devices Not on filedocumented as of this encounter Advance Directives * Full Code (Latest Code Status on File) Date Activated Date Inactivated Comments 04/17/2024 10:54 AM 04/17/2024 7:20 PM This order reflects the patients wishes and were consensually agreed upon. Question Answer Comments Discussion of Advance Directives occurred with: Patient * Full Code Date Activated Date Inactivated Comments 04/10/2015 9:42 AM 04/10/2015 3:15 PM This order r eflects the patients wishes and were consensually agreed upon. * Full Code Date Activated Date Inactivated Comments 10/06/2011 3:22 PM 10/08/2011 6:05 PM This order reflects the patients wishes and were consensually agreed upon. * Full Code Date Activated Date Inactivated Comments 09/20/2011 9:09 PM 09/22/2011 8:58 PM This order reflects the patients wishes and were consensually agreed upon. Care Teams Home Delivery Driver Relationship Specialty Start Date End Date Marta Zendejas PA-C [address] [facility] [place] [address] PCP - General Physician Cube Machine Tender 03/08/22 documented as of this encounter
--- OUTSIDE RECORDS SUMMARY | 2024-05-11 21:28 | External Medical Summary | Summary of Care ---
Author Name Unknown Organization [facility] Address [address] [place] [address] Phone [phone] Care Team Providers Care Medical Economics Consultant Name Role Phone Marta Zendejas PA-C Primary Care Provider [phone] Reason for Referral * Precert (Within 24 hrs (call dept; emergent)) - Pending Review Specialty Diagnoses / Procedures Referred By Skye t Referred To Contact Radiology Diagnoses Postoperative fever Procedures CT ABD/PELVIS W IV AND W ORAL CONTRAST Areli Martinez MD [address] [place] [address] Referral ID Status Reason Start Date Expiration Date V isits Requested Visits Authorized [id number] Pending Review 05/08/2024 [id number] Reason for Visit * Reason Comments Post-Op Hysterectomy on 04/17 Encounter Details Date Type Department Care Team (Latest Contact Info) Description 05/07/2024 1:30 PM EDT Office Visit Gynecology/Obstetric s [facility] [address] [place], [place] [phone] Areli Martinez MD [address] [place], [place] [phone] Postoperative state*; Postoperative fever Allergies Active Allergy Reactions Criticality Noted Date Comments Pollen 05/27/2020 documented as of this encounter (statuses as of 05/07/2024) Medications Medication Sig Dispensed Refills Start Date [...] as of this encounter (statuses as of 05/07/2024) Active Problems Problem Noted Date Diagnosed Date Abnormal uterine bleeding (AUB) 04/17/2024 Primary dysmenorrhea 04/17/2024 Metabolic syndrome 03/02/2024 Major depressive disorder wi th single episode, in full remission 02/10/2024 Insulin resistance 10/25/2023 Restless legs syndrome 04/25/2023 Mild intermittent asthma, uncomplicated 04/25/20 Mood disorder 04/25/2023 Superficial thrombophlebitis of right [...] as of this encounter (statuses as of 05/07/2024) Resolved Problems Problem Noted Date Diagnosed Date [...] with contractions with cervical dilation, [facility] with cervical dilation of 4-5cm, 80% effaced. She delivered at [facility] at 35w6d. MFM consult Threatened premature labor, antepartum 09/24/2011 10/22/2011 Overview: VE 4cm. Bernabeconnie castrejonhaydenicole. Admitted and disch from [facility] at 4cm NST 2x/week and ASHISH And [...] ASHISH = 13 FFN 03/05 neg FFN 03/27 neg ICD-10 update of inactive term Cough [...] as of this encounter (statuses as of 05/07/2024) Immunizations Name Administration Dates Next Due COVID-19 mRNA, LNP-s, No Pre serve, 2-Dose Series ([employer]) 11/22/2020,11/12/2020 H1N1 2009 Influenza, IM 09/16/2009 HPV [...] on file documented as of this encounter Last Filed Vital Signs Vital Sign Reading Time Taken Comments Blood Pressure 102/71 05/07/2024 1:15 PM EDT Pulse - - Temperature - - Respiratory Rate - - Oxygen Saturation - - Inhaled Oxygen Concentration - - Weight 122.1 kg (269 lb 3.2 oz) 05/07/2024 1:15 PM EDT Height 160 cm (5' 2.99") 05/07/2024 1:15 PM EDT Body Mass Index 47.7 05/07/2024 1:15 PM EDT documented in this encounter Progress Notes * Areli Martinez MD - 05/07/2024 1:32 PM EDT Maureen Billings [id number] 05/07/24 The patient is a 34 year old year old POD # 20 who presents today for a post-op check. The patient is s/p TVH on 04/17/2024 Reports had a fever if 101 Tuesday and Tuesday; denies cough; denies urinary frequency/urgnecy; no vag discharge no bleeding Denies cough; complains of intermittent sharp stabbing pain since surgery - low pelvis Pain control: Adequate - taking ibuprofen and tylenol; has hydrocodone only takes if pain gets realbad Signs of infection: Negative A. Uterus and cervix, simple hysterectomy: Chronic cervicitis and squamous metaplasia Disordered proliferative pattern endometrium Benign leiomyomas BP 102/71 | Ht 1.6 m (5' 2.99") | Wt 122.1 kg (269 lb 3.2 oz) | LMP 09/23/2023 | BMI 47.70 kg/m |BSA 2.33 m PHYSICAL EXAMINATION: General: alert, healthy, no distress, does not appear ill HEENT: Normocephalic, atraumatic. ABDOMEN: soft, non-tender,no masses, INTEGUMENT: No rash, no lesions. PELVIC EXAM: External Genitalia/Vulva: anatomy is normal, no significant redness of labia, no discharge on vulvar tissues, . Urethra: normal, no lesions Vagina: vaginal tissues are not inflamed, normal color and texture, small amount alvares fluidy discharge; pos malodor; cuff intact; no fluctuance at cuff BME: no sign acute abdomen Cervix: surgically absent RECTAL EXAM: perianal area normal, anus normal. NEUROLOGIC: alert & oriented to person, place and time;with fluent speech, no focal motor/sensory deficits, gait normal; Cranial nerves II - XII grossly intact EXTREMITIES: no edema, no clubbing, no cyanosis. ASSESSMENT/PLAN: Postoperative state (Primary) - POD#20; s/p tvh; recent febrile episode; if recurs plan ct abd/pelvis; follow up 1 week/prn; call /return with any further temperature/fever CC: Marta Zendejas PA-C Addendum: Patient called after leaving appointment; states temperature to 100.4; will order cbc/ct abd/pelvis; patient called and notified; states temperature 100.9; states was going to go to the ED;recommend hold off; ct will be tomorrow. Postoperative state (Primary) Postoperative fever - CT ABD/PELVIS W IV AND W ORAL CONTRAST; Future; Expected date: 05/08/2024 - CBC WITH WBC DIFFERENTIAL - URINALYSIS, REFLEX TO CULTURE (NOT FOR NEUTROPENIC PATIENTS) Follow Up: Return in about 1 week (around 05/14/2024) for postop. | For: postop documented in this encounter Nursing Notes * Charu Villafana NA/UDC - 05/07/2024 1:16 PM EDT Chief Complaint Patient presents with Post-Op Hysterectomy on 04/17 Pt states no other concerns at this time. MIGUEL Miramontes 05/07/2024 1:16 PM documented in this encounter Miscellaneous Notes * Addendum Note - Areli Martinez MD - 05/07/2024 5:20 PM EDTAddended by: ARELI MARTINEZ on: 05/07/2024 05:20 PM Modules accepted: Orders documented in this encounter Plan of Treatment Upcoming Encounters Date Type Department Care Team (Late st Contact Info) Description 05/16/2024 10:30 AM EDT Office Visit Gynecology/Obstetrics [facility] [address] [place] [address] Rere Brennan DO [address] [place] [address] 09/04/2024 10:00 AM EST Office Visit [facility] [address] [place] [address] Marta Zendejas PA-C [address] [place] [address] Scheduled Orders Name Type Priority Associated Diagnoses Orde r Schedule CT ABD/PELVIS W IV AND W ORAL CONTRAST Medical Imaging STAT Postoperative fever Expected: 05/08/2024, Expires: 05/07/2025 CBC WITH WBC DIFFERENTIAL Lab Routine Postoperative fever Ordered: 05/07/2024 URINALYSIS, REFLEX TO CULTURE (NOT FOR NEUTROPENIC PATIENTS) Lab Routine Postoperative fever Ordered: 05/07/2024 Health Maintenance Due Date Last Done Comments Pneumococcal Vaccine: Pediatrics (0 to 5 Years) and At-Risk Patients (6 to 64 Years) (1 of 2 - PCV) 02/10/1996 Hepatitis C Screening 02/10/2008 Hepatitis B Vaccine (1 of 3 - 19+ 3-dose series) 2009 HPV (Gard[employer]il) Vaccine (2 - 3-dose series) 07/03/2015 06/05/2015 *SPIROMETRY ONCE FOR ASTHMA-ADULT 04/28/2023 COVID-19 Vaccine (3 - 2022- season) 2023 11/22/2020, 11/12/2020 Depression Monitoring 05/20/2024 05/20/2023 Influenza Vaccine (FLU shot) (#1) 2024 09/11/2018, 09/16/2009 DTaP,Tdap,and Td Vaccines (4 - Td or Tdap) 09/24/2030 09/24/2020, 08/14/2010, 07/15/2008 Cervical Cancer Screening Discontinued HPV/Co-Test Discontinued 03/22/2023 Pap Smear Discontinued 03/22/2023, 12/22, 01/17/2017, Additional history exists MENINGOCOCCAL (MENACTRA/MENVEO) Aged Out No longer eligible based on patient's age to complete this topic documented as of this encounter Medical Devices Not on filedocumented as of this encounter Visit Diagnoses Diagnosis Postoperative state- Primary Other postprocedural status Postoperative fever Postprocedural fever documented in this encounter Advance Directives * Full Code [...] and were consensually agreed upon. Care Teams Medical Economics Consultant Relationship Specialty Start Date End Date Marta Zendejas PA-C [address] [facility] [place] [address] PCP - General Physician Oracle Manager 03/08/22 documented as of this encounter
--- OUTSIDE RECORDS SUMMARY | 2024-05-11 21:28 | External Medical Summary | Summary of Care ---
Author Name Unknown Organization [facility] Address [address] [address] [address] Phone [phone] Care Team Providers Care Culled Fruit Packer Name Role Phone Marta Zendejas PA-C Primary Care Provider +1 -[phone] Encounter Details Date Type Department Care Team (Late st Contact Info) Description 04/18/2024 Orders Only Hematology/Oncology [place] [place] [address] [facility] [place] [address] Alphonso Michaud MD [address] [place] [address] Antithrombin III deficiency (HCC)* Allergies Active Allergy Reactions Criticality Noted Date Comments Pollen 05/27/2020 documented as of this encounter (statuses as of 04/18/2024) Medications Medication Sig Dispensed Refills Start Date [...] as of this encounter (statuses as of 04/18/2024) Active Problems Problem Noted Date Diagnosed Date [...] as of this encounter (statuses as of 04/18/2024) Resolved Problems Problem Noted Date Diagnosed Date [...] with contractions with cervical dilation, pt left [facility] at 34wks with cervical dilation of 4-5cm, 80% effaced. She delivered at [facility] at 35w6d. MFM consult Threatened premature labor, antepartum 09/24/2011 10/22/2011 Overview: VE 4cm. Steriod benfited. Admitted and disch from [facility] at 4cm NST 2x/week and ASHISH And [...] as of this encounter (statuses as of 04/18/2024) Immunizations Name Administration Dates Next Due COVID-19 mRNA, LNP-s, No Pre serve, 2-Dose Series (Verafin) 11/22/2020,11/12/2020 H1N1 2009 Influenza, IM 09/16/2009 HPV [...] on file documented as of this encounter Plan of Treatment Upcoming Encounters Date Type Department Care Team (Late st Contact Info) Description 04/18/2024 3:30 PM EDT Laboratory Laboratory, [address] [place] [address] [address] 04/25/2024 2:15 PM EDT Office Visit Hematology/Oncology [facility] [address] [place] [phone] Alphonso Michaud MD [address] [place] [address] 09/04/2024 10:00 AM EST Office [address] [facility], [address] [phone] Marta Zendejas PA-C [address] [facility] [place] [address] Scheduled Orders Name Type Priority Associated Diagnoses Orde r Schedule ANTITHROMBIN III ACTIVITY Lab Routine Antithrombin III deficiency (HCC) Expected: 04/18/2024, Expires: 04/18/2025 Health Maintenance Due Date Last Done Comments [...] (FLU shot) (Season Ended) 2024 09/11/2018, 09/16/2009 Pap Smear 03/22/2026 03/22/2023, 12/22, 01/17/2017, Additional history exists Cervical Cancer Screening 03/22/2028 HPV/Co-Test 03/22/2028 03/22/2023 DTaP,Tdap,and Td Vaccines (4 - Td or Tdap) 09/24/2030 09/24/2020, 08/14/2010, 07/15/2008 MENINGOCOCCAL (MENACTRA/MENVEO) Aged Out No longer eligible based on patient's age to complete this topic documented as of this encounter Medical Devices Not on filedocumented as of this encounter Visit Diagnoses Diagnosis Antithrombin III deficiency (HCC)- Primary Primary hypercoagulable state documented in this encounter Advance Directives * [...] and were consensually agreed upon. Care Teams Culled Fruit Packer Relationship Specialty Start Date End Date Marta Zendejas PA-C [address] [facility] [place] [address] PCP - General Physician Dining Services Director 03/08/22 documented as of this encounter
--- OUTSIDE RECORDS SUMMARY | 2024-05-11 21:28 | External Medical Summary | Summary of Care ---
Author Name Unknown Organization [facility] [address] [place] [address] Phone [phone] Care Team Providers Care Underliner Name Role Phone Marta Zendejas PA-C Primary Care Provider [phone] [phone] Reason for Visit * Reason Comments Post-Op Hysterectomy on 04/17 Encounter Details Date Type Department Care Team (Late st Contact Info) Description 05/07/2024 1:30 PM EDT Office Visit Gynecology/Obstetric s [facility] [address] [place], [place] [phone] Areli Werner MD [address] [place], [place] [phone] Postoperative state* Allergies Active Allergy Reactions Criticality Noted Date [...] with contractions with cervical dilation, pt left [facility] [place] at 34wks with cervical dilation of 4-5cm, 80% effaced. She delivered at [facility] at 35w6d. MFM consult Threatened premature labor, antepartum 09/24/2011 10/22/2011 Overview: VE 4cm. Steriod benfited. Admitted and disch from [facility] at 4cm NST 2x/week and ASHISH [...] Overview: Patient received H1N1 vaccine. 09/16/2009 Elba Lopez, SHELBY 02/19/2010 Betamethasone given Lacey RYAN Gastritis and [...] mRNA, LNP-s, No Pre serve, 2-Dose Series (Pfizer) 11/22/2020,11/12/2020 H1N1 2009 Influenza, IM 09/16/2009 HPV [...] in this encounter Progress Notes * Areli Werner MD - 05/07/2024 1:32 PM EDT Maureen Billings [id number] 05/07/24 The patient is a 34 year old year old POD # 20 who presents today for a post-op check. The patient is s/p TVH on 04/17/2024 Reports had a fever if 101 Tuesday and Tuesday; denies cough; denies urinary frequency/urgnecy; no vag discharge no bleeding complains of intermittent sharp stabbing pain since [...] PHYSICAL EXAMINATION: General: alert, healthy, no distress, HEENT: Normocephalic, atraumatic. ABDOMEN: soft, non-tender,no masses, [...] cyanosis. ASSESSMENT/PLAN: Postoperative state (Primary) - POD#20; recent febrile episode; if recurs plan ct abd/pelvis; follow up 1 week/prn; call /return with any further temperature/fever CC: Marta Zendejas PA-C documented in this encounter Nursing Notes * Charu Villafana NA/UDC - 05/07/2024 1:16 PM EDT Chief Complaint Patient presents with Post-Op Hysterectomy on 04/17 Pt states no other concerns at this time. MIGUEL Miramontes 05/07/2024 1:16 PM documented in this encounter Plan of Treatment Upcoming Encounters Date Type Department Care Team (Late st Contact Info) Description 09/04/2024 10:00 AM EST Office Visit [facility] [address] [place] [facility] [place] [phone] Marta Zendejas PA-C [address] [facility] [place] [address] Health Maintenance Due Date Last Done Comments [...] Diagnosis Postoperative state- Primary Other postprocedural status documented in this encounter Advance Directives * [...] and were consensually agreed upon. Care Teams Underliner Relationship Specialty Start Date End Date Marta Zendejas PA-C [address] [facility] [place] [address] PCP - General Physician Design Inserter 03/08/22 documented as of this encounter
--- OUTSIDE RECORDS SUMMARY | 2024-05-11 21:28 | External Medical Summary | Summary of Care ---
Author Name Unknown Organization [facility] [address] [place] [address] Phone [phone] Care Team Providers Care Client Application Support Engineer Name Role Phone Marta Zendejas PA-C Primary Care Provider [phone] [phone] Reason for Visit * Reason Comments Post-Op Hysterectomy on 04/17 Encounter Details Date Type Department Care Team (Late st Contact Info) Description 05/07/2024 1:30 PM EDT Office Visit Gynecology/Obstetric s [facility] [address] [place], [place] [phone] Areli Werner MD [address] [place], [place] [phone] Postoperative state* Allergies Active Allergy Reactions Criticality [...] with contractions with cervical dilation, pt left [facility] at 34wks with cervical dilation of 4-5cm, 80% effaced. She delivered at [facility] at 35w6d. MFM consult Threatened premature labor, antepartum 09/24/2011 10/22/2011 Overview: VE 4cm. Steriod benfited. Admitted and disch from [facility] at 4cm NST 2x/week and ASHISH And [...] - 05/07/2024 1:32 PM EDT Maureen Billings [id number] 05/07/24 The patient is a 34 year [...] [facility] [address] [place] [address] Rere Brennan DO [address] [place] [address] 09/04/2024 10:00 AM EST Office Visit [facility] [address] [place] [address] Marta Zendejas PA-C [address] [place], [place] [phone] Health Maintenance Due Date Last Done Comments [...] and were consensually agreed upon. Care Teams Client Application Support Engineer Relationship Specialty Start Date End Date Marta Zendejas PA-C [address] [facility] [place] [address] PCP - General Physician Bead Inspector 03/08/22 documented as of this encounter
--- OUTSIDE RECORDS SUMMARY | 2024-05-11 21:28 | External Medical Summary | Summary of Care ---
Author Name Unknown Organization [facility] Address [address] [place] [address] Phone [phone] Care Team Providers Care Ferryboat Captain Name Role Phone Marta Zendejas PA-C Primary Care Provider [phone] Reason for Visit * Reason Comments Outpatient Testing Encounter Details Date Type Department Care Team (Late st Contact Info) Description 04/18/2024 3:30 PM EDT Laboratory Laboratory, [place] [address] [place] [address] [facility] [address] [place] [address] Antithrombin III deficiency (HCC) Allergies Active Allergy Reactions Criticality Noted Date [...] with contractions with cervical dilation, pt left [facility] AMA at 34wks with cervical dilation of 4-5cm, 80% effaced. She delivered at [facility] at 35w6d. MFM consult Threatened premature labor, antepartum 09/24/2011 10/22/2011 Overview: VE 4cm. Steriod benfited. Admitted and disch from [facility] at 4cm NST 2x/week and ASHISH And [...] 28 wks - betameth and procardia FFN 4/30 neg Cx length 1.4 cm MFM appt 03/04 - cx length unchanged, 1.4, ASHISH = 13 FFN 03/05 neg FFN 6 neg ICD-10 update of inactive term Cough [...] Care Team (Late st Contact Info) Description 04/25/2024 2:15 PM EDT Office Visit Hematology/Oncology [place] [address] [place] [address] [place] [address] Alphonso Michaud MD [address] [place] [address] 09/04/2024 10:00 AM EST Office Visit [facility] [address] [facility] [phone] Marta Zendejas PA-C [address] [place] [address] Pending Results Name Type Priority Associated Diagnoses Date /Time ANTITHROMBIN III ACTIVITY Lab Routine Antithrombin III deficiency (HCC) 04/18/2024 2:41 PM EDT Health Maintenance Due Date Last Done Comments [...] encounter Visit Diagnoses Diagnosis Antithrombin III deficiency (HCC) Primary hypercoagulable state documented in this encounter [...] and were consensually agreed upon. Care Teams Ferryboat Captain Relationship Specialty Start Date End Date Marta Zendejas PA-C [address] [place] [address] PCP - General Physician Tmd Teacher Assistant 03/08/22 documented as of this encounter
--- OUTSIDE RECORDS SUMMARY | 2024-05-11 21:28 | External Medical Summary ---
Author Name Unknown Address Unknown Organization K01:[facility] - [address] [place] [id number] Laboratory Report Ordering Provider Test Date Status IRWIN MASON 04/18/2024 14:41:48 Final Observation Date Value Abnormality Reference (Units ) Status Antithrombin III 04/18/2024 14:41:48 92 80- 120 (%) Final Performing Location [facility] - [address] [place] [id number]
--- OUTSIDE RECORDS SUMMARY | 2024-05-11 21:28 | External Medical Summary | Summary of Care ---
Author Name Unknown Organization [facility] Address [address] [place] [address] Phone [phone] Care Team Providers Care Threading Machine Tender Name Role Phone Marta Zendejas PA-C Primary Care Provider [phone] [phone] Reason for Visit * Reason Comments Outpatient Testing Encounter Details Date Type Department Care Team (Late st Contact Info) Description 04/18/2024 3:30 PM EDT Laboratory Laboratory, [place] [address] [place] [address] [facility] [address] [place] [address] Antithrombin III deficiency (HCC) Allergies Active Allergy [...] with contractions with cervical dilation, pt [place] [facility] at 34wks with cervical dilation of 4-5cm, 80% effaced. She delivered at [facility] at 35w6d. MFM consult Threatened premature labor, antepartum 09/24/2011 10/22/2011 Overview: VE 4cm. Steriod benfited. Admitted and [place] [facility] at 4cm NST 2x/week [...] PM EDT Office Visit Hematology/Oncology [place] [address] [place] [phone] Alphonso Michaud MD [address] [place] [address] 09/04/2024 10:00 AM EST Office Visit [facility] [address] [facility] [phone] Marta Zendejas PA-C [address] [place] [address] Pending Results Name Type Priority Associated Diagnoses [...] and were consensually agreed upon. Care Teams Threading Machine Tender Relationship Specialty Start Date End Date Marta Zendejas PA-C [address] [place] [address] PCP - General Physician Lithographic Retoucher Apprentice 03/08/22 documented as of this encounter
--- OUTSIDE RECORDS SUMMARY | 2024-05-11 21:28 | External Medical Summary | Summary of Care ---
Author Name Unknown Organization [facility] [address] [place] [address] Phone [phone] Care Team Providers Care Burial Agent Name Role Phone Marta Zendejas PA-C Primary Care Provider +1 -[phone] Reason for Visit * Reason Onset Date Comments Appointment 04/20/2024 Encounter Details Date Type Department Care Team (Late st Contact Info) Description 04/20/2024 Telephone Gynecology/Obstetrics [facility] [address] [place], [place] [phone] Areli Werner MD [address] [place], [place] [phone] Appointment Allergies Active Allergy Reactions Criticality Noted Date Comments Pollen 05/27/2020 documented as of this encounter (statuses as of 04/24/2024) Medications Medication Sig Dispensed Refills Start Date [...] as of this encounter (statuses as of 04/24/2024) Active Problems Problem Noted Date Diagnosed Date [...] as of this encounter (statuses as of 04/24/2024) Resolved Problems Problem Noted Date Diagnosed Date [...] with contractions with cervical dilation, pt left [facility] at 34wks with cervical dilation of 4-5cm, 80% effaced. She delivered at [facility] at 35w6d. MFM consult Threatened premature labor, antepartum 09/24/2011 10/22/2011 Overview: VE 4cm. Steriod benfited. Admitted and disch from [facility] at 4cm NST 2x/week [...] as of this encounter (statuses as of 04/24/2024) Immunizations Name Administration Dates Next Due COVID-19 mRNA, LNP-s, No Pre serve, 2-Dose Series (Just Eat) 11/22/2020,11/12/2020 H1N1 2009 Influenza, IM 09/16/2009 HPV [...] Telephone Encounter - Lakisha Glass OSA - 04/24/2024 9:41 AM EDT Made pt aware of appt. * Telephone Encounter - Lakisha Glass OSA - 04/20/2024 10:45 AM EDT Pt lvm stating she needs a f/u from surgery, not sure what she needs. Please advise. documented in this encounter Plan of Treatment Upcoming Encounters Date Type Department Care Team (Late st Contact Info) Description 05/07/2024 1:30 PM EDT Office Visit Gynecology/Obstetrics [facility] [address] [place] [address] Areli Werner MD [address] [place] [address] 09/04/2024 10:00 AM EST Office Visit [facility] [address] [place] [phone] Marta Zendejas PA-C [address] [place] [address] Health Maintenance Due Date Last Done Comments [...] and were consensually agreed upon. Care Teams Burial Agent Relationship Specialty Start Date End Date Marta Zendejas PA-C [address] [place] [address] PCP - General Physician Balance Recesser 03/08/22 documented as of this encounter
--- OUTSIDE RECORDS SUMMARY | 2024-05-11 21:29 | External Medical Summary | Summary of Care ---
Author Name Unknown Organization [facility] Address [address] [facility] [place] [address] Phone [phone] Care Team Providers Care Representative Phlebotomy Services Name Role Phone Marta Zendejas PA-C Primary Care Provider [phone] Reason for Visit * Reason Comments Acute Encounter Details Date Type Department Care Team (Late st Contact Info) Description 02/10/2024 4:20 PM EDT Telemedicine Family Practice [facility] [address] [facility] [place] [address] Dianne Monzon CRNP [address] [place] [id number] Mild intermittent asthma, uncomplicated*; Viral URI; Insulin resistance; Endometriosis; Major depressive disorder with single episode, in full remission (HCC) Allergies Active Allergy Reactions Criticality Noted Date Comments Pollen 05/27/2020 documented as of this encounter (statuses as of 02/10/2024) Medications Medication Sig Dispensed Refills Start Date End Date Status Sertraline HCl 100 MG Oral Tablet (Zoloft)Indications :Mood disorder (HCC),Stress at home,Family circumstance TAKE 1 & 1/2 (ONE & ONE-HALF) TABLETS BY MOUTH ONCE DAILY 135 Tablet 3 06/10/2023 Active Doxepin HCl 25 MG Oral Capsule (SINEquan)Indicatio ns:Persistent insomnia TAKE 1 TO 2 CAPSULES BY MOUTH AT BEDTIME. ALLOW FOR 8 HOURS OF DOWNTIME 180 Capsule 1 09/07/2023 Active rOPINIRole HCl 2 MG Oral Tablet (Requip)Indications :Restless legs syndrome Take 1 Tablet by mouth at bedtime. 90 Tablet 1 11/04/2023 Active Montelukast Sodium 10 MG Oral Tablet (Singulair) TAKE 1 TABLET BY MOUTH ONCE DAILY AT BEDTIME 90 Tablet 3 12/30/2023 Active Ozempic (0.25 or 0.5 MG/DOSE) 2 MG/3ML Solution Pen-injector (Semaglutide(0.25 or 0.5MG/DOS)) Inject 0.5 mg under the skin once a week. 3 mL 0 02/07/2024 Active predniSONE 20 MG Oral Tablet (Deltasone) Take 1 Tablet by mouth in the morning for 5 days. 5 Tablet 0 02/10/2024 02/15/2024 Active Albuterol Sulfate HFA 108 (90 Base) MCG/ACT Inhalation Aerosol Solution Inhale 2 Puffs by mouth every 6 hours as needed for Cough. 18 g 3 02/10/2024 Active documented as of this encounter (statuses as of 02/10/2024) Active Problems Problem Noted Date Diagnosed Date Major depressive disorder wi th single episode, in full remission 02/10/2024 Insulin resistance 10/25/2023 Restless legs syndrome 04/25/2023 Endometriosis 04/25/2023 Mild intermittent asthma, uncomplicated 04/25/20 Mood disorder 04/25/2023 Prediabetes 04/04/2023 Overview: Per Prediabetes protocol Body mass index (BMI) of 45.0 to 49.9 in adult 0 01/03/2023 Overview: Per Obesity protocol - Per Obesity protocol - Per Obesity protocol - Per Obesity protocol Hyperinsulinemia 06/22/2016 Viral URI 01/27/2010 Migraine 01/06/2009 Overview: None in years. documented as of this encounter (statuses as of 02/10/2024) Resolved Problems Problem Noted Date Diagnosed Date Resolved Date Major depressive disorder with single episode 04/25/20 23 02/10/2024 Superficial thrombophlebitis of right upper extremity 03/22/2023 02/10/2024 Overview: Right basilic vein superficial thrombophlebitis. Diagnoses 07/2022 Body mass index (BMI) of 50. 0 [...] with contractions with cervical dilation, pt left [facility] AMA at 34wks with cervical dilation of 4-5cm, 80% effaced. She delivered at [facility] at 35w6d. MFM consult Threatened premature labor, antepartum 09/24/2011 10/22/2011 Overview: VE 4cm. Steriod benfited. Admitted and disch from [facility] at 4cm NST 2x/week and ASHISH And [...] ASHISH = 13 FFN 03/05 neg FFN 6/4 neg ICD-10 update of inactive term Cough [...] as of this encounter (statuses as of 02/10/2024) Immunizations Name Administration Dates Next Due COVID-19 mRNA, LNP-s, No Pre serve, 2-Dose Series (Pfizer) 11/22/2020,11/12/2020 H1N1 2009 Influenza, IM 09/16/2009 HPV Vaccine, 4-Valent 06/05/2015 08/05/2015 PPD 05/12/2016,04/16/2016 Seasonal Influenza Virus Vac cine, Unspecified Formulation 09/11/2018 TD, Preservative Free 09/24/2020 TDAP (age 11 and older)(Adacel) 08/14/2010,07/15 documented as of this encounter Social History [...] money to get more. Never true 03/31/2023 Sex and Gender Information Value Date Recorded Sex Assigned at Female 03/31/2023 12:23 PM EDT Gender Identity Female 03/31/2023 12:23 PM EDT Sexual Orientation Straight 03/31/2023 12 :23 PM EDT Job Start Date Occupation Industry Not on file Not on file Not on file documented as of this encounter Progress Notes * Dianne Monzon CRNP - 02/10/2024 4:07 PM EDT Telemed Family Medicine Visit Patient location: HOME. I was in a hospital or clinic location. After connecting through televideo,patient was verified with two unique identifiers. Patient (or authorized legal data entry representative) was then informed that this was a Telemedicine visit and being conducted confidentially over secure lines. Methods to assure confidentiality were taken. Patient acknowledged consent and understanding of pr ivacy and security of the Telemedicine visit. The patient agreed to participate. CC: uri symptoms History of Present Illness: Maureen Billings is a 34 year old female presenting with URI symptoms. Symptoms started 2 days ago. Feels dizzy. Tested for covid and negative Her child has URI currentlly -fever, t max - +chills +sweats +decreased appetite +tolerating fluids +congestion -loss of taste or smell +runny nose +PND -ear pain -sore throat -blurred vision -eye discharge +cough +productive of mucous -sob +wheezing +nausea -diarrhea -constipation -vomiting +body aches -Rash -Sleep disruption Social History Socioeconomic History Marital status: Single Spouse name: Tolu Earl Number of children: 2 Years of education: 12 Highest education level: Not on file Occupational History Occupation: [employer] Comment: [employer] Tobacco Use Smoking status: Former Current packs/day: 0.00 Types: Cigarettes Quit date: 07/24/2010 Years since quittin.5 Passive exposure: Never Smokeless tobacco: Never Vaping Use Vaping Use: Every day Substances: THC, CBD Substance and Sexual Activity Alcohol use: No Drug use: Yes Types: Marijuana Comment: social weekends Sexual activity: Yes Partners: Male control/protection: Surgical Comment: BTL Other Topics Concern Not on file Social History Narrative Not on file Social Determinants of Health Financial Resource Strain: Not on file Food Insecurity: No Food Insecurity (03/31/2023) Hunger Vital Sign Worried About Running Out of Food in the Last Year: Never true Ran Out of Food in the Last Year: Never true Transportation Needs: Not on file Physical Activity: Not on file Stress: Not on file Social Connections: Not on file Intimate Partner Violence: Not on file Housing Stability: Not on file PMH: Past Medical History: Diagnosis Date Depressive disorder, not elsewhere classified zoloft for about one year; reports current doing well without S&S of depression Insomnia RLS (restless legs syndrome) resolved when she stopped drinking Pepsi Past Surgical History: Procedure Laterality Date LAP;FULGURATION OVIDUCTS Bilateral 04/10/2015 LAPAROSCOPIC FULGURATION OVIDUCTS performed by Allen Powers DO at [facility] REMOVE GALLBLADDER 2005 No outpatient medications have been marked as taking for the 02/10/24 encounter (Appointment) with Dianne Monzon CRNP. Review of patient's allergies indicates: Allergen Reactions Pollen Most Recent Immunizations Administered Date(s) Administered Betamethasone Steven/Sod Phosp 02/19/2010 COVID-19 mRNA, LNP-s, No Preserve, 2-Dose Series (Pfizer) 11/22/2020 H1N1 2009 Influenza, IM 09/16/2009 HPV Vaccine, 4-Valent 06/05/2015 Ketorolac Tromethamin Inj 12/02/2008 PPD 05/12/2016 Seasonal Influenza Virus Vaccine, Unspecified Formulation 09/11/2018 TD, Preservative Free 09/24/2020 TDAP (age 11 and older)(Adacel) 08/14/2010 Physical Exam: There were no vitals taken for this visit. Physical Exam HENT: Head: Normocephalic. Pulmonary: Effort: Pulmonary effort is normal. Neurological: General: No focal deficit present. Mental Status: She is alert and oriented to person, place, and time. Psychiatric: Mood and Affect: Mood normal. Behavior: Behavior normal. Thought Content: Thought content normal. Judgment: Judgment normal. Assessment and Plan: 1. Mild intermittent asthma, uncomplicated With wheezing ADD PREDNISONE ADD ALBUTEROL 2. Viral URI Sx 2 days Deferred viral testing at this time Recommend Recommend supportive care including: -Humidifier -Rest -Push fluids -Reviewed pathophysiology of viral URI -Recommend handwashing and covering cough -Reviewed signs and symptoms in which to seek medical care I have advised the patient to call our office incase of any worsening or new symptoms. I spent a total of 20-29 minutes (exact time 20 mins) on the date of service in preparation, delivery, and documentation of the care provided to Maureen Billings excluding any time spent in the performance of separately billed services. Gin, LEANDRO, KIKI [facility] documented in this encounter Plan of Treatment Upcoming Encounters Date Type Department Care Team (Late st Contact Info) Description 03/02/2024 8:40 AM EDT Office Visit [facility] [address] [facility] [place] [phone] Marta Zendejas PA-C [address] [facility] [address] Health Maintenance Due Date Last Done Comments [...] (3 - 2022- season) 2023 11/22/2020, 11/12/2020 Influenza Vaccine (FLU shot) (Season Ended) 2024 09/11/2018, 09/16/2009 HbA1c 01/11/2025 01/12/2024, 08/24, 03/29/2023, Additional history exists Pap Smear 03/22/2026 03/22/2023, 12/22, 01/17/2017, Additional history exists Cervical Cancer Screening 03/22/2028 HPV/Co-Test 03/22/2028 03/22/2023 DTaP,Tdap,and Td Vaccines (4 - Td or Tdap) 09/24/2030 09/24/2020, 08/14/2010, 07/15/2008 MENINGOCOCCAL (MENACTRA/MENVEO) Aged Out No longer eligible based on patient's age to complete this topic documented as of this encounter Medical Devices Not on filedocumented as of this encounter Visit Diagnoses Diagnosis Mild intermittent asthma, uncomplicated- Primary Unspecified asthma Viral URI Acute upper respiratory infections of unspecified site Insulin resistance Dysmetabolic Syndrome X Endometriosis Endometriosis, site unspecified Major depressive disorder with single episode, in full remission (HCC) documented in this encounter Advance Directives Latest Code Status on File Code Status Date Activated Date Inactivated Comments Full Code 04/10/2015 9:42 AM 04/10/2015 3:15 PM This order reflects the patients wishes and were consensually agreed upon. Code Status History Code Status Date Activated Date Inactivated Comments Full Code 10/06/2011 3:22 PM 10/08/2011 6:05 PM Thi s order reflects the patients wishes and were consensually agreed upon. Full Code 09/20/2011 9:09 PM 09/22/2011 8:58 PM Thi s order reflects the patients wishes and were consensually agreed upon. Care Teams Representative Phlebotomy Services Relationship Specialty Start Date End Date Marta Zendejas PA-C [address] [facility] [place] [address] PCP - General Physician Lime Kiln And Recausticizing Operator 03/08/22 documented as of this encounter
--- OUTSIDE RECORDS SUMMARY | 2024-05-11 21:29 | External Medical Summary | Summary of Care ---
Author Name Unknown Organization [facility] Address [address] [place] [address] Phone [phone] Care Team Providers Care Barrel Racer Name Role Phone Marta Zendejas PA-C Primary Care Provider [phone] Reason for Visit * Reason Onset Date Comments Return To Work 02/13/2024 Encounter Details Date Type Department Care Team (Late st Contact Info) Description 02/13/2024 Telephone [facility] [address] [place] [address] Marta Zendejas PA-C [address] [place] [address] Return To Work Allergies Active Allergy Reactions Criticality Noted Date Comments Pollen 05/27/2020 documented as of this encounter (statuses as of 02/13/2024) Medications Medication Sig Dispensed Refills Start Date [...] as of this encounter (statuses as of 02/13/2024) Active Problems Problem Noted Date Diagnosed Date [...] as of this encounter (statuses as of 02/13/2024) Resolved Problems Problem Noted Date Diagnosed Date [...] with contractions with cervical dilation, pt left [facility] AMA at 34wks with cervical dilation of 4-5cm, 80% effaced. She delivered at [facility] at 35w6d. MFM consult Threatened premature labor, antepartum 09/24/2011 10/22/2011 Overview: VE 4cm. Steriod benfited. Admitted and disch from [facility] at 4cm NST 2x/week and ASHISH And [...] as of this encounter (statuses as of 02/13/2024) Immunizations Name Administration Dates Next Due COVID-19 [...] encounter Miscellaneous Notes * Telephone Encounter - Ritu Walton LPN - 02/13/2024 12:33 PM EDT Placed in [employer] message for pt. Per pt's request. * Telephone Encounter - Val Farris OSA - 02/13/2024 11:54 AM EDT Pt calling back she needs the Note for work today Pt advised it was suppose to be put in her my chart from her last OV on 02/10/24 With Dianne Monzon CRNP Pt can not go back to work until the note is handed in Work Note?: Has patient been seen for the current issue? Yes If yes patient has been seen for the current issue, list issue/symptoms causing missed work/school (Call Details not required): Pt Had The Flu If no patient has not been seen for the current issue, complete Call Details. Dates Missed: 02/10/24/ 02/11/24 and 02/12/24 Date Returnin02/13/24 Note will be faxed or picked up?: Please put in Pt My Chart phone number to call when note is completed: [phone] * Telephone Encounter - Maricruz Mead LPN - 02/13/2024 9:58 AM EDT Please advise as below. Thank you. * Telephone Encounter - Brenda Limon OSA - 02/13/2024 9:51 AM EDT Patient called looking for a return to work note states she was off 02/10/2024- 02/12/2024 stating she can return today 02/13/2024.Please email to her at [email or web address] documented in this encounter Plan of Treatment Upcoming Encounters Date Type Department Care Team (Late st Contact Info) Description 03/02/2024 8:40 AM EDT Office [facility] [address] [facility] [address] Marta Zendejas PA-C [address] [facility] [address] Health Maintenance Due Date Last Done Comments [...] filedocumented as of this encounter Advance Directives Latest Code Status [...] and were consensually agreed upon. Care Teams Barrel Racer Relationship Specialty Start Date End Date Marta Zendejas PA-C [address] [facility] [place] [address] PCP - General Physician Underground Conduit Installer 03/08/22 documented as of this encounter
--- OUTSIDE RECORDS SUMMARY | 2024-05-11 21:29 | External Medical Summary ---
Author Name Unknown Address Unknown Organization K1H:LABORATORY [facility] - [address] [place] [address] Laboratory Report Ordering Provider Test Date Status PARRIS TONEY 04/17/2024 07:08:29 Final Observation Date Value Abnormality Reference (Units ) Status WBC, Total 04/17/2024 07:08:29 7.51 4.00-10.80 (K/uL) Final RBC 04/17/2024 07:08:29 4.55 3.85-5.15 (M/uL) Final Hemoglobin 04/17/2024 07:08:29 13.0 12.0-15.3 (g/dL) Final HCT 04/17/2024 07:08:29 37.6 36.0-45.2 (%) Final MCV 04/17/2024 07:08:29 82.6 81.5-97.5 (fL) Final MCH 04/17/2024 07:08:29 28.6 27.0-34.0 (pg) Final MCHC 04/17/2024 07:08:29 34.6 32.0-36.0 (g/dL) Final RDW 04/17/2024 07:08:29 13.6 11.5-15.5 (%) Final Platelets 04/17/2024 07:08:29 317 140-400 (K/uL) Final MPV 04/17/2024 07:08:29 8.5 6.6-11.1 (fL) Final Nucleated erythrocytes/100 leukocytes [Ratio] in Blood by Automated count 04/17/2024 07:08:29 0 <=0 (/100 WBCs) Final Performing Location LABOR[facility]ORY [facility] - [address] [facility] [address]
--- OUTSIDE RECORDS SUMMARY | 2024-05-11 21:29 | External Medical Summary ---
Author Name Unknown Address Unknown Organization K01:[facility] [address] Laboratory Report Ordering Provider Test Date Status DOUGLASZENAIDAART 03/02/2024 09:23:53 Final hCG can serve as a screening assay for . However, early may not give a positive hCG test result. In addition, some non- women may have a hCG result slightly higher than the reference limit. Careful interpretation of the hCG with clinical history is required to determine whether the patient may be . Observation Date Value Abnormality Reference (Units ) Status Choriogonadotropin.intact +Beta subunit [Units/volume] in Serum or Plasma 03/02/2024 09:23:53 <0.6 <=1.0 (mIU/mL) Final Performing Location LAB[facility] - [facility] [address] [facility] [address]
--- OUTSIDE RECORDS SUMMARY | 2024-05-11 21:29 | External Medical Summary | Summary of Care ---
Author Name Unknown Organization [facility] Address [address] [place] [address] Phone [phone] Care Team Providers Care Mathematics Academic Chair Name Role Phone Marta Zendejas PA-C Primary Care Provider [phone] Encounter Details Date Type Department Care Team (Late st Contact Info) Description 03/02/2024 Telephone [facility] [address] [place] [address] Marta Zendejas PA-C [address] [place] [address] Allergies Active Allergy Reactions Criticality Noted Date Comments Pollen 05/27/2020 documented as of this encounter (statuses as of 03/02/2024) Medications Medication Sig Dispensed Refills Start Date End Date Status Sertraline HCl 100 MG Oral Tablet (Zoloft)Indications: Mood disorder (HCC),Stress at home,Family circumstance TAKE 1 & 1/2 (ONE & ONE-HALF) TABLETS BY MOUTH ONCE DAILY 135 Tablet 3 06/10/2023 Active Doxepin HCl 25 MG Oral Capsule (SINEquan)Indication s:Persistent insomnia TAKE 1 TO 2 CAPSULES BY MOUTH AT BEDTIME. ALLOW FOR 8 HOURS OF DOWNTIME 180 Capsule 1 09/07/2023 Active rOPINIRole HCl 2 MG Oral Tablet (Requip)Indications: Restless legs syndrome Take 1 Tablet by mouth at bedtime. 90 Tablet 1 11/04/2023 Active Montelukast Sodium 10 MG Oral Tablet (Singulair) TAKE 1 TABLET BY MOUTH ONCE DAILY AT BEDTIME 90 Tablet 3 12/30/2023 Active Ozempic (0.25 or 0.5 MG/DOSE) 2 MG/3ML Solution Pen-injector (Semaglutide(0.25 or 0.5MG/DOS)) Inject 0.5 mg under the skin once a week. 3 mL 0 02/07/2024 Active Albuterol Sulfate HFA 108 (90 Base) MCG/ACT Inhalation Aerosol Solution Inhale 2 Puffs by mouth every 6 hours as needed for Cough. 18 g 3 02/10/2024 Active Ozempic (1 MG/DOSE) 4 MG/3ML Subcutaneous Solution Pen-injector (Semaglutide (1 MG/DOSE))Indications :Body mass index (BMI) of 45.0 to 49.9 in adult (HCC) Inject 1 mg under the skin once a week. 9 mL 1 03/02/2024 Active documented as of this encounter (statuses as of 03/02/2024) Active Problems Problem Noted Date Diagnosed Date Metabolic syndrome 03/02/2024 Major depressive disorder wi [...] as of this encounter (statuses as of 03/02/2024) Resolved Problems Problem Noted Date Diagnosed Date [...] with contractions with cervical dilation, pt left [facility] AMA at 34wks with cervical dilation of 4-5cm, 80% effaced. She delivered at [facility] at 35w6d. MFM consult Threatened premature labor, antepartum 09/24/2011 10/22/2011 Overview: VE 4cm. Steriod benfited. Admitted and disch from [facility] at 4cm NST 2x/week and ASHISH And [...] as of this encounter (statuses as of 03/02/2024) Immunizations Name Administration Dates Next Due COVID-19 [...] money to buy more. Never true 03/31/20 Within the past 12 months, t he [...] encounter Miscellaneous Notes * Telephone Encounter - Snow Benton OSA - 03/02/2024 10:15 AM EDT Tried calling patient. Phone goes to and is full. MyG sent. 03/02/2024 * Telephone Encounter - Marta Zendejas PA-C - 03/02/2024 8:56 AM EDT Surgery [place] hand [place]ger [place] 07[place]23. No f/u Please advise - how does patient arrange her surgery? Marta Zendejas PA-C 03/02/2024 8:56 AM documented in this encounter Plan of Treatment Upcoming Encounters Date Type Department Care Team (Late st Contact Info) Description 03/20/[address] [facility], Operating Room, [facility] - 2nd Floor [address] [place] [phone] Areli Werner MD [address] [place] [address] 09/04/2024 10:00 AM EST Office Visit [facility] [address] [place] [address] Marta Zendejas PA-C [address] [place] [address] Scheduled Procedures Name Priority Associated Diagnoses Date/Ti me VAGINAL HYSTERECTOMY REMOVAL TUBES AND OR OVARIES Abnormal uterine bleeding (AUB) Primary dysmenorrhea Antithrombin III deficiency (HCC) Superficial thrombophlebitis of right upper extremity Health Maintenance Due Date Last Done Comments [...] and were consensually agreed upon. Care Teams Mathematics Academic Chair Relationship Specialty Start Date End Date Marta Zendejas PA-C [address] [place] [address] PCP - General Physician Pantograph Ii Engraver 03/08/22 documented as of this encounter
--- OUTSIDE RECORDS SUMMARY | 2024-05-11 21:29 | External Medical Summary | Summary of Care ---
Author Name Unknown Organization [facility] Address [address] [facility] [place] [address] Phone [phone] Care Team Providers Care Biomedical Technician Name Role Phone Marta Zendejas PA-C Primary Care Provider [phone] Reason for Visit * Reason Onset Date Comments Medication Refill 03/11/2024 Encounter Details Date Type Department Care Team (Late st Contact Info) Description 03/11/2024 Refill [facility] [address] [place] [address] Joe Zaidi MD [address] [place] [address] Persistent insomnia Allergies Active Allergy Reactions Criticality Noted Date Comments Pollen 05/27/2020 documented as of this encounter (statuses as of 03/13/2024) Medications Medication Sig Dispensed Refills Start Date [...] OF DOWNTIME 180 Capsule 1 03/13/2024 Active Doxepin HCl 25 MG Oral Capsule (SINEquan)Indicati ons:Persistent insomnia TAKE 1 TO 2 CAPSULES BY MOUTH AT BEDTIME. ALLOW FOR 8 HOURS OF DOWNTIME 180 Capsule 1 09/07/2023 Discontinue d(Refill) documented as of this encounter (statuses as of 03/13/2024) Active Problems Problem Noted Date Diagnosed Date Metabolic syndrome 03/02/2024 Major depressive disorder wi th single episode, in full remission 02/10/2024 Insulin resistance 10/25/2023 Restless legs syndrome 04/25/2023 Endometriosis 04/25/2023 Mild intermittent asthma, uncomplicated 04/25/20 23 Mood disorder 04/25/2023 Body mass index (BMI) of 45.0 to 49.9 in adult 0 01/03/2023 Overview: Per Obesity protocol - Per Obesity protocol - Per Obesity protocol - Per Obesity protocol Hyperinsulinemia 06/22/2016 Viral URI 01/27/2010 Migraine 01/06/2009 Overview: None in years. documented as of this encounter (statuses as of 03/13/2024) Resolved Problems Problem Noted Date Diagnosed Date Resolved Date Major depressive disorder with single episode 04/25/20 23 02/10/2024 Prediabetes 04/04/2023 03/07/2024 Overview: Per Prediabetes protocol Superficial thrombophlebitis of right upper extremity 03/22/2023 [...] with contractions with cervical dilation, pt left [facility] AMA at 34wks with cervical dilation of 4-5cm, 80% effaced. She delivered at [facility] at 35w6d. MFM consult Threatened premature labor, antepartum 09/24/2011 10/22/2011 Overview: VE 4cm. Steriod benfited. Admitted and disch from [facility] at 4cm NST 2x/week [...] length unchanged, 1.4, ASHISH = 13 FFN 5/13 neg FFN 6/4 neg ICD-10 update of [...] as of this encounter (statuses as of 03/13/2024) Immunizations Name Administration Dates Next Due COVID-19 [...] encounter Miscellaneous Notes * Telephone Encounter - Carmen Baker, [facility] - 03/13/2024 7:40 AM EDTSigned Prescriptions: Disp Refills Doxepin HCl 25 MG Oral Capsule (SINEquan) 180 Ca*1 Sig: TAKE 1 TO 2 CAPSULES BY MOUTH AT BEDTIME ALLOW FOR 8 HOURS OF DOWNTIMEAuthorizing Provider: JOE ZAIDI User: CARMEN BAKER documented in this encounter Plan of Treatment Upcoming Encounters Date Type Department Care Team (Latest Contact Info) Description 04/09/2024 9:45 AM EDT [facility] [address] [id number] Areli Werner MD [address], [place] [id number] 04/17/2024 7:30 AM EDT Hospital Encounter OR [facility], Operating Room, [facility] Floor [address] [place] [phone] Areli Werner MD [address], [place] [id number] 04/17/2024 7:30 AM EDT - 04/17/2024 11:02 AM EDT Surgery OR [facility], Operating Room, [facility] Floor [address] [place] [phone] Areli Werner MD [address], [place] [id number] VAGINAL HYSTERECTOMY REMOVAL TUBES AND OR OVARIES 09/04/2024 10:00 AM EST Office Visit [address] [phone] Marta Zendejas PA-C [address] [place] [address] Scheduled Procedures Name Priority Associated Diagnoses Date/Ti me VAGINAL HYSTERECTOMY REMOVAL TUBES AND OR OVARIES Abnormal uterine bleeding (AUB) Primary dysmenorrhea Antithrombin III deficiency (HCC) Superficial thrombophlebitis of right upper extremity 04/17/2024 7:30 AM EDT Health Maintenance Due Date Last Done [...] as of this encounter Visit Diagnoses Diagnosis Persistent insomnia Persistent disorder of initiating or maintaining sleep Abnormal uterine bleeding (AUB) Primary dysmenorrhea Dysmenorrhea Antithrombin III deficiency (HCC) Primary hypercoagulable state Superficial thrombophlebitis of right upper extremity documented in this encounter Advance Directives * Full Code (Latest Code Status on File) Date Activated Date Inactivated Comments 04/10/2015 9:42 [...] and were consensually agreed upon. Care Teams Biomedical Technician Relationship Specialty Start Date End Date Marta Zendejas PA-C [address] [place] [address] PCP - General Physician Receptionist Secretary 03/08/22 documented as of this encounter
--- OUTSIDE RECORDS SUMMARY | 2024-05-11 21:29 | External Medical Summary | Summary of Care ---
Author Name Unknown Organization [facility] Address [address] [place] [address] Phone [phone] Care Team Providers Care Roller Skate Assembler Name Role Phone Marta Zendejas PA-C Primary Care Provider [phone] Reason for Visit * Reason Comments HISTORY and PHYSICAL 04/17/24 TV BS at [facility] Encounter Details Date Type Department Care Team (Late st Contact Info) Description 04/09/2024 9:45 AM EDT Office Visit Gynecology/Obstetrics [address] [address] Areli Werner MD [address] [place] [address] Abnormal uterine bleeding (AUB)*; Primary dysmenorrhea; Antithrombin III deficiency (HCC); BMI 45.0-49.9, adult (HCC) Allergies Active Allergy Reactions Criticality Noted Date Comments Pollen 05/27/2020 documented as of this encounter (statuses as of 04/09/2024) Medications Medication Sig Dispensed Refills Start Date [...] once a week. 3 mL 02/07/2024 Active Additional Information Patient not taking.Reported on 04/09/2024 Albuterol Sulfate HFA 108 (90 Base) MCG/ACT Inhalation Aerosol Solution Inhale 2 Puffs by mouth every 6 hours as needed for Cough. 18 g 3 02/10/2024 Active Ozempic (1 MG/DOSE) 4 MG/3ML Subcutaneous Solution Pen-injector (Semaglutide (1 MG/DOSE))Indication s:Body mass index (BMI) of 45.0 to 49.9 in adult (HCC) Inject 1 mg under the skin once a week. 9 mL 1 03/02/2024 Active Doxepin HCl 25 MG Oral Capsule (SINEquan)Indicatio ns:Persistent insomnia TAKE 1 TO 2 CAPSULES BY MOUTH AT BEDTIME ALLOW FOR 8 HOURS OF DOWNTIME 180 Capsule 1 03/13/2024 Active documented as of this encounter (statuses as of 04/09/2024) Active Problems Problem Noted Date Diagnosed Date [...] as of this encounter (statuses as of 04/09/2024) Resolved Problems Problem Noted Date Diagnosed Date [...] with contractions with cervical dilation, pt left [facility] AMA at 34wks with cervical dilation of 4-5cm, 80% effaced. She delivered at [facility] at 35w6d. MFM consult Threatened premature labor, antepartum 09/24/2011 10/22/2011 Overview: VE 4cm. Steriod benfited. Admitted and disch from [facility] at 4cm NST 2x/week and ASHISH And [...] as of this encounter (statuses as of 04/09/2024) Immunizations Name Administration Dates Next Due COVID-19 [...] Sign Reading Time Taken Comments Blood Pressure 122/64 04/09/2024 9:50 AM EDT Pulse - - Temperature - - Respiratory Rate - - Oxygen Saturation - - Inhaled Oxygen Concentration - - Weight 123.5 kg (272 lb 3.2 oz) 04/09/2024 9:50 AM EDT Height 160 cm (5' 2.99") 04/09/2024 9:50 AM EDT Body Mass Index 48.23 04/09/2024 9:50 AM EDT documented in this encounter H&P Notes * Areli Werner MD - 04/09/2024 10:27 AM EDT Maureen Billings is a 34 year old, , who presents for follow up of Abnormal uterine bleeding; s/p endometrial biopsy . Desires hyst; no changes since last seen Previous History of Present Illness: The patient is a 33 year old with Patient's last menstrual period was 03/08/2023 (approximate). (Menstrual status: Oral Contraceptive Use). who presents with complaints of heavy bleeding irregular and painful periods; patient wants a hysterectomy; states started bleeding again this past Tuesday - lasted 2 days; mod flow; Reports menses start light, then day 2 very heavy using a diva cup Q30 min; "super clotty" Some large, some little; usually will last 4 day; lately 7 days; Stopped combination oral contraceptive in January; states was cycling Q3 mos on combination oral contraceptive; states were still heavy and painful; had mirena iud in the past and refuses to do that again; states it caused too much pain Reports last pap few years ago; stopped going for paps because they were abnl and she was tired of having to do colposcopy; last pap in chart 2019 lgsil Last 2013; had tubal 2014; started combination oral contraceptive sometime after that due to heavy painful periods; then got thrombophlebitis in RUE last year; has been on eliquis since; statesthe blood has decreased in size but is still present; Was seen by Dr. Cortez and requesting a hyst; states was recommended an endometrial ablation; was told a hyst would be too risky for her Preceding events or exacerbating factors: none. Exogenous hormone use: None Exacerbated by: nothing Bleeding improved by: nothing Previous evaluation: nothing Associated symptoms: Bad cramps and nausea Can only take tylenol for the pain - cant take nsaids due to eliquis The patient is not currently sexually active. Weight changes: maintain Risk factors: Smoking, pre-Diabetes and Weight Previous HPI Dr. Cortez: Context: (HPI) 32 year old seen by PCP for superficial blood clot.Pt has blood clot in the arm and work up showed low AT Pt has been on OCp for over 2 years and is doing well. She smokes Marijuana daily and has no menses Pt was told by PCP She could have an ablation or hysterectomy. She is here to day requesting a hysterectomy A/P Superficial venous thrombotic event Pt dx with low ATT III Recommended by [facility] to d/c OCP and consider hysterectomy or ablation Pt will only consider hysterectomy Pt is BMI>50 Discussed risk of hysterectomy including but not limited to her obesity Will discuss this with her PCP Recommend PCP have pt see hen ONC To confirm ATT III dx PAST MEDICAL HISTORY: Past Medical History: Diagnosis Date Antithrombin III deficiency (HCC) Depressive disorder, not elsewhere classified zoloft for about one year; reports current doing well without S&S of depression Insomnia RLS (restless legs syndrome) resolved when she stopped drinking Pepsi Superficial thrombophlebitis 08/06/2022 Patient Active Problem List Diagnosis Migraine Viral URI Hyperinsulinemia Body mass index (BMI) of 45.0 to 49.9 in adult (HCC) Restless legs syndrome Mild intermittent asthma, uncomplicated Mood disorder (HCC) Insulin resistance Major depressive disorder with single episode, in full remission (HCC) Metabolic syndrome Antithrombin III deficiency (HCC) PAST SURGICAL HISTORY: Past Surgical History: Procedure Laterality Date LAP;FULGURATION OVIDUCTS Bilateral 04/10/2015 LAPAROSCOPIC FULGURATION OVIDUCTS performed by Allen Powers DO at [facility] REMOVE GALLBLADDER 2005 FAMILY HISTORY: Family History Problem Relation Name Age of Onset No Past Hx Mother limited info COPD Mother No Past Hx Father no contact, no info Heart Disorder Grandmother (Maternal) Stroke Grandmother (Maternal) Diabetes Grandfather (Maternal) Heart Disorder Grandfather (Maternal) [place] x 2 Hypertension Grandfather (Maternal) Stroke Grandfather (Maternal) Cancer Other colon ca, maternal great uncle Other (Other) Other denies fam hx of breast, uterine, ovarian, and endometrial ca SOCIAL HISTORY: Social History Tobacco Use Smoking status: Former Current packs/day: 0.00 Types: Cigarettes Quit date: 07/24/2010 Years since quittin.7 Passive exposure: Never Smokeless tobacco: Never Vaping Use Vaping status: Every Day Substances: THC, CBD Substance Use Topics Alcohol use: No Drug use: Yes Types: Marijuana Comment: social weekends ALLERGIES: Pollen ROS: CONSTITUTIONAL: Negative for chills, fever, fatigue and weight loss. HEENT:: Negative for visual change, glaucoma, hearing loss; RESPIRATORY:: Negative for cough, hemoptysis CARDIOVASCULAR: Negative for chest pain, shortness of breathe, GASTROINTESTINAL: Negative for abdominal pain, constipation, diarrhea, hematochezia GENITOURINARY: Negative for dysuria ,stones, hematuria INTEGUMENT/BREAST; Negative for rash, skin color change and skin lesion(s); Denies breast pain/mass. HEME/LYMPHATIC: Negative for bleeding, easy bruising, DVT, lymphadenopathy pos h/o Right basilic vein superficial thrombophlebitis. Pos antithrombin III deficiency MUSCULOSKELETAL: Negative trauma/pain NEUROLOGICAL: Neg seizures/ pos migraines BEHAVIORAL/PSYCH: pos for depression, neg anxiety RADIOLOGY: EXAM: US PELVIS TRANS-VAGINAL NON-OB - 03/28/2023 FINDINGS: LMP: 03/08/2023, day 21 of the cycle UTERUS: Anteverted, 8.7 cm x 4.4 cm x 6.2 cm MYOMETRIUM: Homogeneous. ENDOMETRIUM: 5 mm in thickness, within normal limits. Few small nabothian cysts in the endocervicalcanal. RIGHT OVARY: 2.5 cm x 2.3 cm x 3.2 cm, 10.0 ml Unremarkable LEFT OVARY: 3.3 cm x 2.1 cm x 2.6 cm, 9.2 ml Unremarkable MISCELLANEOUS: No significant free fluid. IMPRESSION: Unremarkable pelvic ultrasound examination. PATHOLOGY: Final Diagnosis A. Endometrium, biopsy: Secretory endometrium. Latest Reference Range & Units 09/21/22 09:23 12/28/22 10:01 aPTT 21 - 38 seconds 25 Antithrombin III Activity 80 - 120 % 67 (L) 75 (L) PROTHROMBIN (FACTOR II) GENE MUTATION, PCR Rpt Lupus Sensitive aPTT Screen, Normalized Ratio 0.91 - 1.40 1.03 LUPUS ANTICOAGULANT PROFILE WITH INTERPERTATION BY PATHOLOGIST Rpt DRVVT Screen Normalized Ratio <=1.20 1.17 Protein C Activity 75 - 135 % 126 Protein S Activity 65 - 140 % 79 (L): Data is abnormally low Rpt: View report in Results Review for more information Latest Reference Range & Units 01/29/22 08:00 Insulin 3 - 25 uU/mL 260 (H) TSH 0.27 - 4.20 uIU/mL 3.01 TSH WITH FREE T4 IF INDICATED Rpt (H): Data is abnormally high PHYSICAL EXAMINATION: Most Recent Vital Signs: BP 122/64 | Ht 1.6 m (5' 2.99") | Wt 123.5 kg (272 lb 3.2 oz) | LMP 09/23/2023 | BMI 48.23 kg/m |BSA 2.34 m General: alert, healthy, no distress, obese, pleasant HEENT: Normocephalic, atraumatic. Extraocular muscles intact, NECK: supple, no adenopathy, thyroid normal size, non-tender, without nodularity, trachea midline LUNGS: Normal respiratory effort. Clear to auscultation bilaterally. HEART: regular rate & rhythm, without murmer, rub or gallop. ABDOMEN: soft, non-tender, non-distended,no masses, no hepatosplenomegaly, no hernia. INTEGUMENT: No rash, no lesions. PELVIC EXAM: External Genitalia/Vulva: anatomy is normal, no significant redness of labia, no discharge on vulvar tissues, Sciota's and Bartholin's glands are normal, ulcers are absent, no condylomatous lesions Urethra: normal, no lesions Vagina: vaginal tissues are not inflamed, normal color and texture, no significant discharge present Cervix: normal in appearance without lesions or purulent discharge, no cervical motion tenderness Uterus: Difficult to appreciate due to body habitus no obvious mass Adnexa: no palpable mass bilaterally and non-tender bilaterally Rectal Exam: perianal normal, no lesions NEUROLOGIC: alert, oriented to person, place, and time; gait normal; Cranial nerves II - XII grossly intact. EXTREMITIES: No cyanosis, clubbing or edema ASSESSMENT/PLAN: Abnormal uterine bleeding (AUB) (Primary) Primary dysmenorrhea Antithrombin III deficiency (HCC) - will need anticoagulation BMI 45.0-49.9, adult (HCC) VAGINAL HYSTERECTOMY/BILATERAL SALPINGECTOMY; ALL INDICATED PROCEDURES; PT RISKED AND BENEFITTED FOR THE ABOVE SURGICAL PROCEDURE AND UNDERSTOOD THE USUAL RISKS OF SURGERY INCLUDED BLEEDING, INFECTION, TRAUMA TO THE BOWEL/BLADDER/URETERS/MAJOR BLOOD VESSELS/BLOOD CLOT/PULMONARY EMBOLISM/NERVE TRAUMA/ILEUS/BOWEL OBSTRUCTION/HERNIA/PAIN/CHANGE IN VAGINAL DEPTH; DYSPAREUNIA; VAGINAL PAIN; VAGINAL CUFF DEHISCENCE; VOIDING DYSFUNCTION; PROLONGEDUSE OF A YOU OR SUPRAPUBIC CATHEER; EARLIER MENOPAUSE; FISTULA; PNEUMOTHORAX, THE NEED FOR AN OPEN PROCEDURE/LAPARATOMY/LAPAROSCOPY; RISKS OF THE NEED FOR A POSTOPERATIVE SURGICAL PROCEDURE/ADDITIONAL SURGERY; COLOSTOMY/WOUND BREAKDOWN WITH PROLONGED WOUND PACKING; MORCELLATION OF THE UTERUS AND IF MORCELLATION OF THE UTERUS IS NEEDED THE POSSIBLE RISKS OF SPREAD OF CANCER SUCH ENDOMETRIAL OR A UTERINE SARCOMA; THESE BEING THE MOST COMMON RISKS OF THE SURGICAL PROCEDURE BUT NOT ALL CONCEIVABLE RISKS OF SURGERY SUCH THE RISK OF A STROKE OR ; THE PATIENT UNDERSTOOD THE RISKS OF A BLOOD TRANSFUSION INCLUDED VIRAL INFECTIONS SUCH HEPATITIS AND HIV THAT CAUSES AIDS; THE PATIENT UNDERSTOOD THE ALTERNATIVES WERE TO DO NOTHING AND AT THIS TIME PATIENT WANTS TO PROCEED WITH SURGERY;; THE PATIENT UNDERSTOOD THE BENEFITS TO PROVIDE RELIEF OF THE abnormal uterine bleeding and dysmenorrhea. THE PATIENT UNDERSTOOD THE ABOVE RISKS/BENEFITS/ALTERNATIVES AND AGREES TO PROCEED. Patient is aware she is at increased risk of surgical complication due to obesity previous surgicalhistory such as injury to bowel/bladder/ureters. Patients smoking status Social History Tobacco Use Smoking Status Former Current packs/day: 0.00 Types: Cigarettes Quit date: 07/24/2010 Years since quittin.7 Passive exposure: Never Smokeless Tobacco Never : The patient is currently using tobacco products and I have counseled her regarding smoking cessation prior to her surgical procedure. I have discussed other options for management of this patients condition including: observation and medical management such as n/a. After review of these options she has elected to undergo hysterectomy and I have discussed the risks/benefits/potential complications of surgery as well as recoveryand post operative activity. In particular I discussed the risks as noted above with the patient. I have counseled the patient regarding the route of hysterectomy. The following options were discussed with the patient Vaginal, Laprascopic assisted vaginal, Total laparoscopic and Abdominal and we have decided on vaginal hysterecomy after reviewing the risks and benefits of the appropriate options. The patient was made aware of the possible need to convert to another form of hysterectomy if there are unforeseen issues at the time of surgery. documented in this encounter Miscellaneous Notes * Pt Handout (on AVS) - Areli Werner MD - 04/09/2024 10:41 AM EDT Images from the original note were not included. [id number] Pelvic Laparoscopy Laparoscopy is a type of surgery done using very small incisions. This type of surgery is possible because of the laparoscope. This is a long, slender tool with a camera and a light. It lets a surgeon see inside your stomach. To do the surgery, the surgeon puts special instruments into the stomach through small incisions. Pelvic laparoscopy is often used to diagnose and treat the causes of pelvicproblems, such as pain and infertility. Laparoscopy often involves: A short hospital stay (you can most likely go home the same day) A quick recovery Minimal anesthesia Small external scars Mild to moderate postoperative pain Getting ready To prepare for surgery: Tell your surgeon about any medicines you take. Include herbs, supplements, and iadh-evq-xflyqjwhvavqshms. You may need to stop taking certain medicines, such as aspirin, for 7 to 10 days before surgery. Follow any directions for not eating or drinking before surgery. Arrange for a ride home after surgery. Before the procedure You will most likely be given general anesthesia to make you sleep during the procedure. A cathetermay be inserted to drain urine from the bladder. How pelvic laparoscopy is done The surgeon makes one or more small (quarter- or half-inch) incisions near the navel or the pubic hairline or on either side of the lower belly. The laparoscope is inserted through an incision. It sends images to a video screen, allowing the surgeon a close-up view of the organs. The surgeon uses gas to inflate the belly, for room to see and work. Depending on what is found, surgery to treat the problem may be done at this time. After the procedure You?ll be taken to a post-op area to wake up and recover from anesthesia. You may feel some shoulder pain. This is due to irritation from the gas used to inflate the belly. You may have some discharge from the vagina. If so, ask the nurse for a pad. You will be asked to walk around to improve breathing and blood flow. If you had a catheter, it will most likely be removed before you go home. You can go home as soon as you recover from anesthesia and your condition is stable. Your recovery Recovery time depends on which procedure was done. Your recovery from pelvic laparoscopy may take up to 6 weeks. If it was a simple procedure such as a tubal ligation, then 2 weeks is reasonable. Forlaparoscopic hysterectomies, the recovery may be closer to 6 weeks. While you recover, be sure to follow your healthcare provider?s instructions. During this time: Take pain medicine as prescribed. Start eating solid food when you feel ready. To prevent constipation, eat fruits, vegetables, and whole grains. Drink plenty of fluids. Don?t lift anything heavy until your healthcare provider says it?s safe. Take it easy for a few days. Ask your healthcare provider when you can return to work, exercise,and sex. Arrange for a follow-up visit with your healthcare provider to discuss the results of the procedure. When to call your healthcare provider Call your healthcare provider right away if you have any of the following: Fever of 100.4F (38C) or higher, or as directed by your healthcare provider Chills Redness, swelling, or drainage at the incision site Heavy, bright-red vaginal bleeding or smelly discharge Trouble urinating Severe belly pain or bloating Leg pain, redness, or swelling Persistent nausea or vomiting No signs of daily improvement Fainting Trouble breathing Last Reviewed Date: 04/23/202219997850-3176 [employer]. All rights reserved. This information is not intended as a substitute for professional medical care. Always follow your healthcare professional's instructions. * Pt Handout (on AVS) - Areli Werner MD - 04/09/2024 10:30 AM EDT Images from the original note were not included. [id number] Pelvic Laparoscopy Laparoscopy is a type of surgery done using very small incisions. This type of surgery is possible because of the laparoscope. This is a long, slender tool with a camera and a light. It lets a surgeon see inside your stomach. To do the surgery, the surgeon puts special instruments into the stomach through small incisions. Pelvic laparoscopy is often used to diagnose and treat the causes of pelvicproblems, such as pain and infertility. Laparoscopy often involves: A short hospital stay (you can most likely go home the same day) A quick recovery Minimal anesthesia Small external scars Mild to moderate postoperative pain Getting ready To prepare for surgery: Tell your surgeon about any medicines you take. Include herbs, supplements, and vnsp-mwg-datumvgwfavaxxto. You may need to stop taking certain medicines, such as aspirin, for 7 to 10 days before surgery. Follow any directions for not eating or drinking before surgery. Arrange for a ride home after surgery. Before the procedure You will most likely be given general anesthesia to make you sleep during the procedure. A cathetermay be inserted to drain urine from the bladder. How pelvic laparoscopy is done The surgeon makes one or more small (quarter- or half-inch) incisions near the navel or the pubic hairline or on either side of the lower belly. The laparoscope is inserted through an incision. It sends images to a video screen, allowing the surgeon a close-up view of the organs. The surgeon uses gas to inflate the belly, for room to see and work. Depending on what is found, surgery to treat the problem may be done at this time. After the procedure You?ll be taken to a post-op area to wake up and recover from anesthesia. You may feel some shoulder pain. This is due to irritation from the gas used to inflate the belly. You may have some discharge from the vagina. If so, ask the nurse for a pad. You will be asked to walk around to improve breathing and blood flow. If you had a catheter, it will most likely be removed before you go home. You can go home as soon as you recover from anesthesia and your condition is stable. Your recovery Recovery time depends on which procedure was done. Your recovery from pelvic laparoscopy may take up to 6 weeks. If it was a simple procedure such as a tubal ligation, then 2 weeks is reasonable. Forlaparoscopic hysterectomies, the recovery may be closer to 6 weeks. While you recover, be sure to follow your healthcare provider?s instructions. During this time: Take pain medicine as prescribed. Start eating solid food when you feel ready. To prevent constipation, eat fruits, vegetables, and whole grains. Drink plenty of fluids. Don?t lift anything heavy until your healthcare provider says it?s safe. Take it easy for a few days. Ask your healthcare provider when you can return to work, exercise,and sex. Arrange for a follow-up visit with your healthcare provider to discuss the results of the procedure. When to call your healthcare provider Call your healthcare provider right away if you have any of the following: Fever of 100.4F (38C) or higher, or as directed by your healthcare provider Chills Redness, swelling, or drainage at the incision site Heavy, bright-red vaginal bleeding or smelly discharge Trouble urinating Severe belly pain or bloating Leg pain, redness, or swelling Persistent nausea or vomiting No signs of daily improvement Fainting Trouble breathing Last Reviewed Date: 04/23/202219991884-0115 [employer]. All rights reserved. This information is not intended as a substitute for professional medical care. Always follow your healthcare professional's instructions. documented in this encounter Plan of Treatment Upcoming Encounters Date Type Department Care Team (Latest Contact Info) Description 04/17/2024 7:45 AM EDT Hospital Encounter OR [facility], Operating Room, [facility] - 2nd Floor [address] [place] [address] Areli Werner MD [address], [place] [id number] 04/17/2024 7:45 AM EDT - 04/17/2024 11:17 AM EDT Surgery OR [facility], Operating Room, [facility] - [facility] Floor [address] [place] [phone] Areli Werner MD [address] [place] [address] VAGINAL HYSTERECTOMY REMOVAL TUBES AND OR OVARIES 09/04/2024 10:00 AM EST Office Visit [facility] [address] [place] [id number] Marta Zendejas PA-C [address], [place] [id number] Scheduled Procedures Name Priority Associated Diagnoses Date/Ti me VAGINAL HYSTERECTOMY REMOVAL TUBES AND OR OVARIES Abnormal uterine bleeding (AUB) Primary dysmenorrhea Antithrombin III deficiency (HCC) Superficial thrombophlebitis of right upper extremity 04/17/2024 7:45 AM EDT Health Maintenance Due Date Last Done Comments Pneumococcal Vaccine: Pediatrics (0 to 5 Years) and At-Risk Patients (6 to 64 Years) (1 of 2 - PCV) 02/10/1996 Hepatitis C Screening 02/10/2008 Hepatitis B (1 of 3 - 19+ 3-dose series) 2009 GARDASIL-HPV IMMUNIZATION SERIES (2 - 3-dose series) 07/03/2015 06/05/2015 *SPIROMETRY ONCE FOR ASTHMA-ADULT 04/28/2023 COVID-19 Vaccine ( - 2022- season) 2023 11/22/2020, 11/12/2020 Depression [...] as of this encounter Visit Diagnoses Diagnosis Abnormal uterine bleeding (AUB)- Primary Primary dysmenorrhea Dysmenorrhea Antithrombin III deficiency (HCC) Primary hypercoagulable state BMI 45.0-49.9, adult (HCC) Body Mass Index 45.0-49.9, adult Abnormal uterine bleeding (AUB) Primary dysmenorrhea Dysmenorrhea [...] and were consensually agreed upon. Care Teams Roller Skate Assembler Relationship Specialty Start Date End Date Marta Zendejas PA-C [address] [facility] [place] [id number] PCP - General Physician Human Resource Statistician 03/08/22 documented as of this encounter
--- OUTSIDE RECORDS SUMMARY | 2024-05-11 21:29 | External Medical Summary | Summary of Care ---
Author Name Unknown Organization [facility] Address [address] [facility] [place] [address] Phone [phone] Care Team Providers Care Backwinder Name Role Phone Marta Zendejas PA-C Primary Care Provider [phone] Reason for Visit * Reason Comments Follow Up Patient is here due to 6 month follow upPatient states she has not gotten her period in 6 months Encounter Details Date Type Department Care Team (Late st Contact Info) Description 03/02/2024 8:40 AM EDT Office Visit [facility] [address] [place] [address] Marta Zendejas PA-C [address] [place] [address] Secondary amenorrhea*; Need for hepatitis C screening test; Metabolic syndrome; Encounter for long-term (current) use of medications; Body mass index (BMI) of 45.0 to 49.9 in adult (HCC) Allergies Active Allergy Reactions Criticality [...] asthma, uncomplicated 04/25/20 23 Mood disorder 04/25/2023 Prediabetes 04/04/2023 Overview: Per [...] with contractions with cervical dilation, [place] [facility] with cervical dilation of 4-5cm, 80% effaced. She delivered at [facility] at 35w6d. MFM consult Threatened premature labor, antepartum 09/24/2011 10/22/2011 Overview: VE 4cm. Steriod benfited. Admitted and [place] from [facility] [place] 4[place] NST 2x/week and [...] Sign Reading Time Taken Comments Blood Pressure 104/74 03/02/2024 7:58 AM EDT Pulse 85 03/02/2024 7:58 AM EDT Temperature 36.2 C (97.1 F) 03/02/2024 7:58 AM ED T Respiratory Rate 16 03/02/2024 7:58 AM EDT Oxygen Saturation 96% 03/02/2024 7:58 AM EDT Inhaled Oxygen Concentration - - Weight 125.6 kg (277 lb) 03/02/2024 7:58 AM EDT Height - - Body Mass Index 49.08 10/05/2023 10:39 AM EST documented in this encounter Progress Notes * Marta Zendejas PA-C - 03/02/2024 8:01 AM EDT Images from the original note were not included. History of Present Illness Maureen Billings is a 34 year old female that presents for Follow Up (Patient is here due to 6 month follow up/Patient states she has not gotten her period in 6 months ) Here for 6 moms return Has not had a period in the last 6 months. She is very crampy. Has not come. Yesterday bled for maybe 5 minutes. Not even enough for a pad or tampon. At a stand still about her Ozempic. Had a migraine when dose went up. Component Latest Ref Rng 01/12/2024 WBC 4.00 - 10.80 K/uL 8.20 Neutrophils % 40.0 - 75.0 % 47.1 Lymphocytes % 18.0 - 42.0 % 42.4 (H) Monocytes % 1.0 - 11.0 % 7.0 Eosinophils % 0.0 - 6.0 % 2.7 Basophils % 0.0 - 2.0 % 0.6 Immature Granulocytes % 0.0 - 2.0 % 0.2 Absolute Neutrophils 1.80 - 7.70 K/uL 3.86 Absolute Lymphocytes 1.00 - 4.80 K/ul 3.48 Absolute Monocytes 0.00 - 1.10 K/uL 0.57 Absolute Eosinophils 0.00 - 0.70 K/uL 0.22 Absolute Basophils 0.00 - 0.20 K/uL 0.05 Absolute Immature Granulocytes 0.00 - 0.20 K/uL 0.02 WBC 4.00 - 10.80 K/uL 8.20 RBC 3.85 - 5.15 M/uL 4.75 HGB 12.0 - 15.3 g/dL 13.3 HCT 36.0 - 45.2 % 40.5 MCV 81.5 - 97.5 fL 85.3 MCH 27.0 - 34.0 pg 28.0 MCHC 32.0 - 36.0 g/dL 32.8 RDW 11.5 - 15.5 % 13.8 PLT 140 - 400 K/uL 382 MPV 6.6 - 11.1 fL 8.7 nRBCs <=0 /100 WBCs 0 Triglycerides <=174 mg/dL 266 (H) Cholesterol <200 mg/dL 207 (H) HDL Cholesterol >49 mg/dL 53 Non-HDL Cholesterol <=159 mg/dL 154 LDL Cholesterol <=129 mg/dL 101 Hemoglobin A1C 4.0 - 5.6 % 5.7 (H) Estimated Average Glucose <126 mg/dL 117 Insulin 3 - 25 uU/mL 25 Legend: (H) High Past Medical History: Diagnosis Date Depressive disorder, not elsewhere classified zoloft for about one year; reports current doing well without S&S of depression Insomnia RLS (restless legs syndrome) resolved when she stopped drinking Pepsi Ozempic (0.25 or 0.5 MG/DOSE) 2 MG/3ML Solution Pen-injector (Semaglutide(0.25 or 0.5MG/DOS)) Montelukast Sodium 10 MG Oral Tablet (Singulair) rOPINIRole HCl 2 MG Oral Tablet (Requip) Doxepin HCl 25 MG Oral Capsule (SINEquan) Sertraline HCl 100 MG Oral Tablet (Zoloft) Albuterol Sulfate HFA 108 (90 Base) MCG/ACT Inhalation Aerosol Solution Physical Exam Vitals: 03/02/24 0758 Temp: 36.2 C (97.1 F) Pulse: 85 Resp: 16 SpO2: 96% BP: 104/74 BP Readings from Last 3 Encounters: 03/02/24 104/74 10/25/23 102/64 09/02/23 108/72 Wt Readings from Last 3 Encounters: 03/02/24 125.6 kg (277 lb) 10/25/23 129.3 kg (285 lb) 10/05/23 124.7 kg (275 lb) BMI Readings from Last 3 Encounters: 03/02/24 49.08 kg/m 10/25/23 50.50 kg/m 10/05/23 48.73 kg/m Ht Readings from Last 3 Encounters: 10/05/23 1.6 m (5' 2.99") 05/20/23 1.6 m (5' 3") 04/11/23 1.6 m (5' 3") General: alert, healthy, and no distress Head: Normocephalic, No masses, lesions, tenderness or abnormalities Heart: regular rate & rhythm, no murmur, no gallops, S-1 normal, and S-2 normal Lungs: chest symmetric with normal AP diameter, no chest deformities noted, no chest wall tenderness, lungs clear to auscultation Extremities: less than 2 second capillary refill, no joint deformities, effusion, or inflammation Skin: skin color, texture, turgor are normal, no rashes or significant lesions Assessment and Plan Secondary amenorrhea (Primary) - TSH WITH FREE T4 IF INDICATED; Future; Expected date: 03/02/2024 - FSH; Future; Expected date: 03/02/2024 - ESTROGEN, TOTAL, SERUM; Future; Expected date: 03/02/2024 - BETA-HCG, QUANTITATIVE; Future; Expected date: 03/02/2024 Need for hepatitis C screening test =- low risk, defer Metabolic syndrome - needs to continue to drop weight. Encounter for long-term (current) use of medications - LIPASE; Future; Expected date: 03/02/2024 Body mass index (BMI) of 45.0 to 49.9 in adult (HCC) - Ozempic (1 MG/DOSE) 4 MG/3ML Subcutaneous Solution Pen-injector (Semaglutide (1 MG/DOSE)); Inject1 mg under the skin once a week. Wrap-Up Rev labs Bg good No side affects from ozempic Will advance dose Rev dosing Discussion with patient of risk and benefit of medication. also discussion of common side affects. patient counseled and is aware and wishes to purse this medication, agrees to call with any issues or concerns. Time: I spent a total of 20-29 minutes (exact time 28 mins) on the date of service in preparation, delivery, and documentation of the care provided to Maureen Billings excluding any time spent in the performance of separately billed services. Marta Zendejas PA-C 03/02/2024 8:57 AM documented in this encounter Nursing Notes * Brendan Moreno Student - 03/02/2024 7:58 AM EDT The patient has been properly identified by confirmation of name and date of . Chief Complaint Patient presents with Follow Up Patient is here due to 6 month follow up Patient states she has not gotten her period in 6 months documented in this encounter Plan of Treatment Upcoming Encounters Date Type Department Care Team (Late st Contact Info) Description 03/02/2024 9:20 AM EDT Laboratory Laboratory, [place] [address] [facility] [address] [place], Laboratory [address] [place] [address] Arrived 09/04/2024 10:00 AM EST Office Visit [facility] [place] [address] [facility] [address] Marta Zendejas PA-C [address] [place] [address] Scheduled Orders Name Type Priority Associated Diagnoses Orde r Schedule TSH WITH FREE T4 IF INDICATED Lab Routine Secondary amenorrhea Expected: 03/02/2024 (Approximate), Expires: 03/02/2025 FSH Lab Routine Secondary amenorrhea Expected: 03/02/2024 (Approximate), Expires: 03/02/2025 ESTROGEN, TOTAL, SERUM Lab Routine Secondary amenorrhea Expected: 03/02/2024, Expires: 03/02/2025 BETA-HCG, QUANTITATIVE Lab Routine Secondary amenorrhea Expected: 03/02/2024, Expires: 06/02/2024 LIPASE Lab Routine Encounter for long-term (current) use of medications Expected: 03/02/2024 (Approximate), Expires: 03/02/2025 HEMOGLOBIN A1C Lab Routine Metabolic syndrome Body mass index (BMI) of 45.0 to 49.9 in adult (HCC) Expected: 03/02/2024 (Approximate), Expires: 03/02/2025 INSULIN Lab Routine Metabolic syndrome Body mass index (BMI) of 45.0 to 49.9 in adult (HCC) Expected: 03/02/2024 (Approximate), Expires: 03/02/2025 Health Maintenance Due Date Last Done Comments [...] ( - 2022- season) 2023 11/22/2020, 11/12/2020 Influenza [...] as of this encounter Visit Diagnoses Diagnosis Secondary amenorrhea- Primary Absence of menstruation Need for hepatitis C screening test Special screening examination for other specified viral diseases Metabolic syndrome Dysmetabolic Syndrome X Encounter for long-term (current) use of medications Encounter for long-term (current) use of other medications Body mass index (BMI) of 45.0 to 49.9 in adult (HCC) documented in this encounter Advance Directives [...] and were consensually agreed upon. Care Teams Backwinder Relationship Specialty Start Date End Date Marta Zendejas PA-C [address] [facility] [place] [id number] PCP - General Physician Healthcare Management 03/08/22 documented as of this encounter
--- OUTSIDE RECORDS SUMMARY | 2024-05-11 21:29 | External Medical Summary | Summary of Care ---
Author Name Unknown Organization [facility] Address [address] [place] [address] Phone [phone] Care Team Providers Care Sports Medicine Physician Name Role Phone Marta Zendejas PA-C Primary Care Provider [phone] Reason for Referral * Evaluate & Treat - Unlimited Visits (Within 10 days (routine)) - Authorized Specialty Diagnoses / Procedures Referred By Skye jauregui Referred To Contact Hematology/Oncology / Hematology Oncology Diagnoses Antithrombin III deficiency (HCC) Mony Thrasher DO [address] [place] [address] Charlene Werner MD [address] [place] [address] Referral ID Status Reason Start Date Expiration Date Visits Requested Visits Authorized [id number] Authorized Specialty Services Required 04/17/2024 [id number] Question Answer Referral Priority Within 10 days (routine) Where should this appointment be scheduled? [facility] Reason for Referral Other - Please Comment Comments Needs referral in 3-4 weeks for history of antithrombin III deficiency. Discharge Order Reason for Visit * Auth/Cert Specialty Diagnoses / Procedures Referred By Skye jauregui Referred To Contact Diagnoses Abnormal uterine bleeding (AUB) Primary dysmenorrhea Antithrombin III deficiency (HCC) Superficial thrombophlebitis of right upper extremity Abnormal uterine bleeding (AUB) [N93.9] Primary dysmenorrhea [N94.4] Antithrombin III deficiency (HCC) [D68.59] Superficial thrombophlebitis of right upper extremity [I80.8] Procedures VAGINAL HYSTERECTOMY, W/TUBE/OVARY VAGINAL HYSTERECTOMY REMOVAL TUBES AND OR OVARIES Areli Werner MD [address] [place] [address] Or [facility] [address] [place] [address] Referral ID Status Reason Start Date Expiration Date Visits Re quested Visits Authorized [id number] Encounter Details Date Type Department Care Team (Latest Contact Info) Description 04/17/2024 6:07 AM EDT - 04/17/2024 3:11 PM EDT Hospital Encounter OR [facility], Operating Room, Main Hospital - 2nd Floor [address] [place] [id number] Areli Werner MD [address] [place] [address] Discharge Disposition: Home - Self Care Allergies Active Allergy Reactions Criticality Noted Date Comments Pollen 05/27/2020 documented as of this encounter (statuses as of 04/18/2024) Medications Medication Sig Dispensed Refills Start Date End Date Status Sertraline HCl 100 MG Oral Tablet (Zoloft)Indicatio ns:Mood disorder (HCC),Stress at home,Family circumstance TAKE 1 & 1/2 (ONE & ONE-HALF) TABLETS BY MOUTH ONCE DAILY 135 Tablet 3 3 Active rOPINIRole HCl 2 MG Oral Tablet (Requip)Indicatio ns:Restless legs syndrome Take 1 Tablet by mouth at bedtime. 90 Tablet 1 4 Active Montelukast Sodium 10 MG Oral Tablet (Singulair) TAKE 1 TABLET BY MOUTH ONCE DAILY AT BEDTIME 90 Tablet 3 4 Active Ozempic (0.25 or 0.5 MG/DOSE) 2 MG/3ML Solution Pen-injector (Semaglutide(0.25 or 0.5MG/DOS)) Inject 0.5 mg under the skin once a week. 3 mL 4 Active Albuterol Sulfate HFA 108 (90 Base) MCG/ACT Inhalation Aerosol Solution Inhale 2 Puffs by mouth every 6 hours as needed for Cough. 18 g 3 4 Active Ozempic (1 MG/DOSE) 4 MG/3ML Subcutaneous Solution Pen-injector (Semaglutide (1 MG/DOSE))Indicati ons:Body mass index (BMI) of 45.0 to 49.9 in adult (HCC) Inject 1 mg under the skin once a week. 9 mL 1 4 Active Doxepin HCl 25 MG Oral Capsule (SINEquan)Indicat ions:Persistent insomnia TAKE 1 TO 2 CAPSULES BY MOUTH AT BEDTIME ALLOW FOR 8 HOURS OF DOWNTIME 180 Capsule 1 4 Active Ibuprofen 800 MG Oral Tablet (Motrin) Take 1 Tablet by mouth every 8 hours as needed for Pain, Mild, Pain, Moderate or Pain, Severe. Alternate with Acetaminophen 30 Tablet 1 4 Active Docusate Sodium 100 MG Oral Capsule (Colace) Take 1 Capsule by mouth in the morning and 1 Capsule before bedtime. 10 Capsule 4 Active Ondansetron HCl 4 MG Oral Tablet Take 1 Tablet by mouth every 8 hours as needed for Nausea. 20 Tablet 4 Active Senna 8.6 MG Oral Capsule Take 1 Tablet by mouth daily as needed for Constipation for up to 1 dose. 14 Capsule 4 Active HYDROcodone-Aceta minophen 7.5-325 MG Oral Tablet Take 1 Tablet by mouth every 6 hours as needed for Pain, Moderate or Pain, Severe. 16 Tablet 4 Active Apixaban 2.5 MG Oral Tablet (Eliquis) Take 1 Tablet by mouth in the morning and 1 Tablet before bedtime. Do all this for 28 days. 56 Tablet 4 05/15/20 24 Active predniSONE 20 MG Oral Tablet (Deltasone) Take 1 Tablet by mouth in the morning for 5 days. 5 Tablet 4 04/17/20 24 Discontinued documented as of this encounter (statuses as [...] pt [place] [facility] 34w[place] with cervical dilation of 4-5cm, 80% effaced. She delivered at [facility] at 35w6d. MFM consult Threatened premature labor, antepartum 09/24/2011 10/22/2011 Overview: VE 4cm. Steriod benfited. Admitted and [place] [facility] [place] [...] mRNA, LNP-s, No Pre serve, 2-Dose Series ([employer]) 11/22/2020,11/12/2020 H1N1 2009 Influenza, IM 09/16/2009 HPV [...] Reading Time Taken Comments Blood Pressure 102/71 04/17/2024 1:31 PM EDT Pulse 95 04/17/2024 1:31 PM EDT Temperature 36.9 C (98.4 F) 04/17/2024 1 2:33 PM EDT Respiratory Rate 12 04/17/2024 1:31 PM EDT Oxygen Saturation 96% 04/17/2024 1:31 PM EDT Inhaled Oxygen Concentration - - Weight 122.1 kg (269 lb 1.6 oz) 04/17/2024 6:28 AM EDT Height - - Body Mass Index 47.68 04/09/2024 9:50 AM EDT documented in this encounter Discharge Instructions * Discharge Instr - AVS* Kaity Liu MD - 04/17/2024 7:12 AM EDT Discharge Date: 04/17/2024 You may call the department of Obstetrics and Gynecology during business hours for any questions ortest results. [facility] [place] [phone] After hours, you may call the number above and follow the prompts for more information on the next steps in your care. For acute concerns, you may also call the hospital directly and have the bandage wrapping machine operator page the SHEARING MACHINE TENDER physician hospital television rental clerk. infoBizz [facility] Care sites are available 24 hours a day. You can call or schedule an appointment online at a location near your home. Check your Patient Education Brochure for further information. The information below provides you with the instructions following discharge from the hospital. If you have any questions, please ask before leaving. Please carry this letter with you when you see your doctor in the clinic. If you have questions, you can reach us at the numbers above. Diet Start with clear liquids (jell-o, tea, apple juice). Avoid dairy products (milk, cheese, pudding, ice cream) and fried or greasy foods. Progress to prescribed diet as tolerated. If nausea should occur, have clear liquids only until soft foods can be tolerated. Activity A responsible adult must be with the patient for 24 hours after surgery. We encourage light walkingintermittently in the first days following surgery for the quickest recovery and increase activity as tolerated. DO NOT drive, operate any appliances and/or machinery or sign legal documents for 24 hours. Over the Counter (OTC) Pain Medications Ydim-wvb-skzxtnc Tylenol 325 mg, take 2 tablets by mouth every 6 hours as needed for pain Lkyz-wsw-vkrplhs Ibuprofen 200 mg, take 3 tablets by mouth every 6 hours as needed for pain For the best pain control using owag-ysk-hqvmset Tylenol and Ibuprofen, alternate Ibuprofen and Tylenol so that you are taking 1 medication every 3 hours (ex: If you take Tylenol at 12:00 PM, take Ibuprofen at 3:00 PM, and then you will be permitted to take Tylenol again at 6:00 PM, and Ibuprofen at 9:00 PM, etc). Do not exceed Tylenol 4000mg or Ibuprofen 2400mg in a 24 hour period. See the sections below on your After Visit Summary (AVS) for other medications that have been prescribed. Warnings Call your surgeon promptly in case of: Excessive bleeding Fever greater than 101 degrees fahrenheit (38.3 degrees centigrade) Persistent nausea and vomiting Redness, swelling, or pus-like drainage Pain that is not relieved by the medicine you were told to take Follow Up Please follow up with OBGYN in 2 weeks. This appointment will be scheduled for you. See your primary care physician (Marta Zendejas PA-C) as regularly scheduled. If you have any scheduled appointments at [facility], they will be listed below on your After Visit Summary (AVS). Return to Work or School You may return to work or school as previously discussed with Dr. Werner Special Instructions You may have vaginal bleeding that requires a pad. If your bleeding saturates more than 1 heavy padper hour, please notify your physician. Maintain pelvic rest (nothing in the vagina - no douching, tampons, or sexual intercourse) for at least 6-8 weeks. Frequently Asked Questions During Recovery Major Hysterectomy You have just undergone extensive pelvic surgery successfully and now it is your turn to play an important role in the long-term success of your surgical treatment. Surgery and the recovery period can be a frightening time filled with concerns and questions. The following guidelines are presented with the goal of helping you recover from surgery and giving you long-lasting satisfaction from your operation. You should understand that when you are first at home that not every day will be a good day. It is not uncommon after surgery to take two steps forward and one backward. Fatigue and low energy level may persist for many weeks after surgery. Some people experience depression or post-surgery blues. Usually this goes away by itself but if it doesn't, you should call my office and let me know. If you feel suicidal or homicidal, please call the crisis hotline at [phone]-PBIM ([phone]). Because of the extensive vaginal surgery, you may have some spotting and discharge from the vagina for a few weeks. Bleeding usually lessens over time, but if the bleeding increases, you need to callright away. Vaginal discharge is usually yellowish-white and watery, representing stitches that aredissolving. This usually goes away by six weeks after surgery. In the meantime, you can use sanitary pads or napkins; please do not use tampons. If you are concerned about the discharge you are having, please call. You may have incisions on your abdomen. Most are closed with suture that dissolve under the skin. Please notify your doctor if you note redness around the incision, drainage of pus, blood, or fluid, or if you have worsening pain at the incision sites. Bruising around the incision can be normal, if you have concerns, discuss this with your doctor. If you have addie or a wound vacuum device, confirm a return date with your doctor in 1-2 weeks to have them tended to or removed. If you have any problem with your wound, excessive pain, or a fever, please call. Please be sure to ask any questions about issues of concern. It is often helpful to write these down as you think of them. You can be sure that you are not the first person who needs questions answered, and I consider it part of my responsibilities to make sure that all your questions are answered s atisfactorily. Remember, there is NO such thing as a stupid question! I would much rather have you ask too many questions than not enough. Activity Restrictions - It may take up to 6 months to achieve good wound strength. The majority of healing occurs in the first 6-12 weeks, based on this, we recommend that you limit your activities for a full 6 weeks after surgery and take care of yourself for the following months. What exactly does this mean? Anything that increases the pressure inside your abdominal cavity will place stress andstrain on the stitches in your pelvis and vagina. If enough stress is placed, the stitches and repair can break or be torn down. Thus, we recommend that you avoid any activity which will unduly increase your intra-abdominal pressure. Specific guidelines are given below. Exercise - Avoid all exercise other than walking. Walking IS encouraged. It gives you good cardiovascular benefits and will help your body heal! You can walk on level ground as much as you desire. Stairmasters or similar devices are fine if you do not use them in the inclined position. Listen to your body as you increase your activities. Lifting - Do not lift anything heavier than approximately 30 pounds. A full gallon of milk weighs 8pounds and can serve as an easy frame of reference. This is a significant limitation since it includes such things as groceries, small children, full laundry baskets, and heavy pots, pans, and casserole dishes. It is most important in the first 6 weeks. Housework - Most forms of housework are discouraged during your recovery period. Pushing vacuum market gardener, scrubbing sinks, washing floors, lifting pots, pans and casserole dishes are all capable of increasing intra-abdominal pressure significantly, so please try to let someone else perform these duties. Sexual Cobalt - It is important that you refrain from intercourse during the 6-8 week period of initial healing until cleared by your surgeon. This activity can disrupt the sutures in the vaginaas well as significantly increase intra-abdominal pressures. Bending at the waist - Bending at the waist will increase your intra-abdominal pressures. It is important that you try to avoid bending directly over to pick something up off the floor. If you need to reach something on the floor, either sit down and scoop it up or slowly bend down on your knees topick it up, keeping your back straight. This restriction is not only good for the surgical repair, it is also good medicine for your lower back! Don't take this restriction too literally, though. Youcan still put your own socks and shoes on. Stairs - Stair climbing is acceptable but please don't run! Just take the stairs nice and easy. Driving - Driving is usually permissible one to two weeks after surgery. It is important to remember that pain from your surgical incisions may cause you to lose your concentration on the road or to have a pccfiy-jxtm-ponxby response rate when faced with a situation in which you must react quickly.In addition, stepping on the brake quickly may cause your intra-abdominal pressure to rise. You must be off narcotics for pain control before being permitted to drive. Bathing - Showering is the preferred method of bathing during the first 6 weeks after surgery. Washing the labia is fine but no water (or anything else, for that matter) should go in the vagina during the healing process. Bathroom habits - It is important to avoid straining and pushing, whether urinating or having a bowel movement! Therefore, it is very important to avoid constipation. If a high-fiber diet alone is enough to accomplish this, great! Most likely, though, you will need to use a stool softener like Colace (docusate sodium) 2-4 times a day to keep your bowel movements soft. By the way, the generic is just as good as the brand name. If Colace isn't enough, use some Milk of Magnesia. Even an enema is awhole lot better than becoming completely bound up. Medications As noted above, you are encouraged to use a mild stool softener to avoid constipation. You will also be given a prescription for pain medicine before you leave the hospital. Most patients find that they need nothing stronger than Tylenol (acetaminophen) after the first or second postoperative week. You should resume all of your regular medications unless specifically instructed not to. Please ask if you have any questions about your medications. documented in this encounter H&P Notes * Mony Thrasher, DO - 04/17/2024 7:07 AM EDT HISTORY & PHYSICAL EXAMINATION - Gynecology [facility]-[address] [id number] Name: Maureen Billings Location: Room/bed info not found Date: 04/17/2024 Time: 7:07 AM HISTORY OF PRESENT ILLNESS: Maureen Billings, 34 year old, seen and examined. Pt presents for vaginal hysterectomy and bilateral salpingectomy and any other indicated procedures for AUB and primary dysmenorrhea. Seen today in pre-op, she has no specific concerns or complaints. She denies any change of medical history ormedications since she was last seen in the office. Pt denies fevers, chills, CP, SOB, abd pain, urinary symptoms, change in bowel habits, SINGH, vision change, lightheadedness/dizziness. 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[facility]) ROS: Pertinent positives per HPI All others negative OBSTETRIC HISTORY: OB History Para Term AB Living 3 3 2 1 0 3 SAB IAB Ectopic Multiple Live Births 0 0 0 0 3 # Outcome Date GA Lbr Igor/2nd Weight Sex Type Anes PTL Lv 3 Term 05/29/14 40w0d 03:54 3.487 kg (7 lb 11 oz) F Vag-Spont None N EULALIA 2 10/18/11 35w6d 02:19 2.835 kg (6 lb 4 oz) M Vag-Spont None Y EULALIA Comments: FOB #1;first degree perineal 1 Term 05/02/10 38w0d 06:00 3.317 kg (7 lb 5 oz) F Vag-Spont EPI N EULALIA Comments: FOB #1 Obstetric Comments Began with contractions at 30wks; delivered at 35w6 PAST MEDICAL HISTORY: Past Medical History: Diagnosis Date Antithrombin III deficiency (HCC) Depressive disorder, not elsewhere classified zoloft for about one year; reports current doing well without S&S of depression Insomnia RLS (restless legs syndrome) resolved when she stopped drinking Pepsi Superficial thrombophlebitis 08/06/2022 PAST SURGICAL HISTORY: Past Surgical History: Procedure Laterality Date LAP;FULGURATION OVIDUCTS Bilateral 04/10/2015 LAPAROSCOPIC FULGURATION OVIDUCTS performed by Allen Powers DO at OR [facility] REMOVE GALLBLADDER 2005 FAMILY HISTORY: Family History Problem Relation Name Age of Onset No Past Hx Mother limited info COPD Mother No Past Hx Father no contact, no info Heart Disorder Grandmother (Maternal) Stroke Grandmother (Maternal) Diabetes Grandfather (Maternal) Heart Disorder Grandfather (Maternal) [place] x 2 Hypertension Grandfather (Maternal) Stroke Grandfather (Maternal) Cancer Other colon ca, maternal great uncle Other (Other) Other denies fam hx of breast, uterine, ovarian, and endometrial ca SOCIAL HISTORY: Social History Socioeconomic History Marital status: Spouse name: Tolu Earl Number of children: 2 Years of education: 12 Highest education level: Not on file Occupational History Occupation: [employer] Comment: [employer] Tobacco Use Smoking status: Former Current packs/day: 0.00 Types: Cigarettes Quit date: 07/24/2010 Years since quittin.7 Passive exposure: Never Smokeless tobacco: Never Vaping Use Vaping status: Every Day Substances: THC, CBD Substance and Sexual Activity [...] Never true Transportation Needs: Not on file Social Connections: Unknown (04/10/2024) Social Connections How often do you feel lonely or isolated from those around you? (Adult - for ages 18 years and over): Not on file Housing Stability: Not on file ALLERGIES: Pollen MEDICATIONS: Prior to Admission medications Medication Sig Last Dose Discont. Doxepin HCl 25 MG Oral Capsule (SINEquan) TAKE 1 TO 2 CAPSULES BY MOUTH AT BEDTIME ALLOW FOR 8 HOURS OF DOWNTIME 04/16/2024 Montelukast Sodium 10 MG Oral Tablet (Singulair) TAKE 1 TABLET BY MOUTH ONCE DAILY AT BEDTIME 04/16/2024 rOPINIRole HCl 2 MG Oral Tablet (Requip) Take 1 Tablet by mouth at bedtime. 04/16/2024 Sertraline HCl 100 MG Oral Tablet (Zoloft) TAKE 1 & 1/2 (ONE & ONE-HALF) TABLETS BY MOUTH ONCE DAILY 04/16/2024 Ozempic (1 MG/DOSE) 4 MG/3ML Subcutaneous Solution Pen-injector (Semaglutide (1 MG/DOSE)) Inject 1 mg under the skin once a week. 04/03/2024 Albuterol Sulfate HFA 108 (90 Base) MCG/ACT Inhalation Aerosol Solution Inhale 2 Puffs by mouth every 6 hours as needed for Cough. Over 30 Days predniSONE 20 MG Oral Tablet (Deltasone) Take 1 Tablet by mouth in the morning for 5 days. Ozempic (0.25 or 0.5 MG/DOSE) 2 MG/3ML Solution Pen-injector (Semaglutide(0.25 or 0.5MG/DOS)) Inject 0.5 mg under the skin once a week. 04/03/2024 PHYSICAL EXAM: VITALS: BP: 109 mmHg/68 mmHg (04/17/24627) Pulse: 74 (04/17/24627) Resp: 11 (04/17/24627) Temp: 36.78 C (04/17/24627) Temp Summary: Temp Min: 36.8 C (98.2 F) Max: 36.8 C (98.2 F) SpO2: 97 % (04/17/24627) O2 flow rate: Supplemental O2 Delivery: Room Air, None (04/17/24627) General: NAD, AAO x 3, pleasant Heart: RRR, no murmurs/rubs/gallops Lungs: CTAB, non-labored breathing Labs: Results for orders placed or performed during the hospital encounter of 04/17/24 URINE SCREEN, POINT OF CARE (ENTER/EDIT) Result Value Ref Range hCG Beta, Urine Negative Negative Procedural Control Valid? Yes Lot Number [id number] Expiration Date *Note: Due to a large number of results and/or encounters for the requested time period, some results have not been displayed. A complete set of results can be found in Results Review. Imaging: No new imaging IMPRESSION: Maureen Billings is a 34 year old presenting for scheduled vaginal hysterectomy and bilateral salpingectomy and any other indicated procedures for AUB and primary dysmenorrhea. Procedure was reviewed in pre-op. Patient counseled on risks, benefits, and alternative treatments. Reviewed increased risk of intraabdominal injury in the setting of prior abdominal surgeries. Surgical consent previously signed. Patient wishes to proceed with scheduled surgery. PLAN: - Proceed with scheduled surgery - Abx: Ancef - IVF - SIMON/SCDs - Dispo: Discharge to home from post-op recovery This patient's history, physical exam, assessment and plan of care were reviewed and discussed withDr. Werner. documented in this encounter Nursing Notes * Brandy Caputo RN - 04/17/2024 2:44 PM EDT Pt has ambulated to the bathroom. Pt was only able to void scant amount during most recent attempt to void. IV fluids reconnected. Pt provided ice chips. Pt has had 2 cans of abhay piyush. * Brandy Caputo RN - 04/17/2024 1:[address] Werner in to see pt post-op. * Ana Cristina Morrell RN - 04/17/2024 12:32 PM EDT Post Anesthesia Care Unit Discharge Note [address] [id number] Dept. Maureen Billings Vital Signs Stable Discharged from PACU as per discharge criteria (see discharge criteria sheet). Time: 1232 Reported to: Brandy Taken to In/ Out Surgery, accompanied by Ana Cristina. Transported via: Stretcher Belongings with Patient: Not Applicable Prescriptions on Chart: Yes Patient meets criteria to be transferred or discharged * Ana Cristina Morrell RN - 04/17/2024 12:00 PM EDT Patients oxygen saturation dipping to 88% while sleeping, 3L O2 applied. * Ana Cristina Morrell RN - 04/17/2024 11:20 AM EDT Patient opening eyes, nodding appropriately and following commands, will not verbalize answers to questions, shakes head no when asked if having pain. * Elsa Fuller RN - 04/13/2024 1:49 PM EDT PREOP PATIENT INFORMATION AND EDUCATION: MEDICATION INSTRUCTIONS: The day of surgery/procedure, you may TAKE the following medications with a sip of water up to 3 hours prior to your arrival time: Albuterol inhaler if needed, please bring to the hospital with you AVOID/ DO NOT TAKE any medications the morning of surgery/procedure that are not listed above. STOP taking the following medications the noted number of days prior to surgery/procedure unless otherwise specified by your surgeon: You are prescribed ozempic, a medication classified as a GLP-1 Agonist. This medication may be associated with delayed gastric emptying (delayed emptying of your stomach content into your intestine).Due to the delay in emptying your stomach you may experience symptoms such as abdominal discomfort/bloating, nausea and/or vomiting. These symptoms can increase your risks of potential complications associated with anesthesia. You will have the opportunity to discuss your symptoms the day of surgery when you will meet your anesthesia team and a plan of care is made. Please follow these recommendations based on whether you are experiencing symptoms or not to reducethe risk of potential complications associated with anesthesia: -You are taking a WEEKLY-dosed GLP-1 agonist HOLD your dose a minimum of 3 days prior to your procedure AND follow a CLEAR LIQUID diet for 24 hours before your procedure. INSTRUCTIONS FOR CLEAR LIQUID DIET 24 HOURS BEFORE YOUR PROCEDURE: -The day before your procedure you may eat a lite breakfast (e.g. toast, cereal), it is recommendedto eat your breakfast before 9:00 AM -The day before your procedure after eating breakfast, you MUST follow a clear liquid diet. A clearliquid diet includes water, soda, clear juices (without pulp), black coffee or tea (without milk/cream), jello (without anything added to it) and broth (without anything added to it). -The day of your procedure you may have clear liquids until 3 hours prior to your procedure's arrival time. Please follow surgeon's instructions regarding use of Aspirin, Coumadin, Plavix, Eliquis, and any other blood thinner including NSAIDs (non-steroidal anti- inflammatory drugs, eg, Advil, Ibuprofen, Motrin, Aleve, Naproxen); if you have any questions regarding your anticoagulation therapy please contact your surgeon's clinic. Please verify any proposed stoppage of your anticoagulation therapy with the agent's prescribing provider. 10 days prior to surgery/procedure Stop all Herbal supplements, Green Tea, Turmeric, Melatonin, CBD, THC, etc. Stop all Vitamins (including Vitamin E) 24 hours prior to surgery/procedure DO NOT consume any alcohol. DO NOT use medical marijuana. DO NOT smoke or use tobacco products of any kind after midnight prior to surgery. *Using any of these products may increase your risks of procedural complications. IF IT IS LESS THAN RECOMMENDED STOPPAGE TIME PLEASE STOP AT TIME OF NOTIFICATION. THE DAY BEFORE YOUR SURGERY: -Drink plenty of fluid the day before your surgery. Contact your surgeon's office if you develop any of the following within 2 weeks of surgery: A cold Infection Fever Shingles Chicken pox or exposure to chicken pox Open areas such as scrapes, cuts, delacruz or other skin conditions Rashes GENERAL INSTRUCTIONS FOR PREPARING FOR SURGERY: BATHING INSTRUCTIONS: Bathe the evening prior to and the morning of surgery/procedure. Cleanse your body using ONLY anti-bacterial soap (eg, Dial, Safeguard) or any specific soap/cleansers and instructions provided by your surgeon (eg, Chlorhexidine). -You should brush your teeth the morning of surgery. Do NOT apply any lotions, powders, sprays, creams, oils, make-up, or deodorants after bathing. No hairspray, or nail turkish on fingers or toes. Day of surgery/procedure do not use tampons. If you wear contacts wear your eyeglasses if available otherwise bring your contact supplies with you to remove them prior to your surgery/procedure. If you wear glasses or dentures, please bring cases in which you can store them during your surgery. Please remove all piercings and jewelry and leave them at home. Wear comfortable and loose clothing. -Please leave all valuables at home. -If you use a CPAP and are staying overnight, please bring your mask and tubing with you to the hospital. -If you use an assistive mobility device (walker, cane, etc), please label it with your name and bring to hospital. -An escort tilt tray driver is required if you are being discharged the same day of the surgery. You should have a responsible adult over the age of 18 [address] you home. This person should be present with youin the hospital at the time of discharge and for the first 24 hours after the surgery to support your needs. If you are taking a taxi home, you must have your responsible democrat accompany you in the taxi ride home at the time of discharge. OR times subject to change. Please check voicemail messages the day/evening before your surgery forany updates. PRE-OP: You will be taken to the pre-op area where your vital signs (blood pressure, pulse and temperature)will be taken. Any preparations that need to be done will be done there. When it is time for your surgery, you will be taken to the operating room. PARENTS OF PEDIATRIC PATIENTS WILL BE ALLOWED TO STAY WITH THEIR CHILDREN UNTIL THEY ARE ESCORTED TO THE OPERATING ROOM OUTPATIENT SURGERY PATIENTS: After your surgery you will be taken to the Same Day Surgery Unit when you are awake and will go home from there. You will get instructions about your home care before you leave. Arrange to have someone drive you home from the hospital. You may not drive for 24 hours after anesthesia. You must havean adult stay with you at home for 24 hours after your operation. This is very important. If you are not able to comply with these guidelines, your Short Stay surgery cannot be done. ADMISSION PATIENTS: After your stay in the recovery area, you will be taken to your room. Your family may visit you in your room based on current visitation policy. If a next day discharge is expected, it is important to make arrangements for a tilt tray driver to take you home. Please be aware our visitation policies are subject to change Professionals, attendants, caregivers or family members are allowable visitors for patients with intellectual, developmental or cognitive disabilities, communication barriers or behavioral concerns. Because patients' and families' needs vary, they will be taken into account when [place] [address] Contact #: [phone] before 4:00 PM If calling after 4:00 PM you may reach a voicemail, leave a message,Someone will return your call. Park in the G parking lot in front of the [facility], enter through the front door. Takeelevator M to the 2nd floor and report to the Short Procedure Unit directly on the left upon exiting the elevator. NO ANESTHESIA EVAL REQUESTED PER CASE DOCUMENTATION. Patient identified by: name/birthdate Person taught: Patient Optime case procedure confirmed with surgical consent Laterality confirmed as N/a Surgery date at time of Pre-Surgery Center Encounter: 04/17/24 What procedure is patient having? Total vaginal hysterectomy with bilateral salpingectomy +/- ovaries In an emergency, is patient willing to accept blood products or blood transfusion? yes Do you need to place a blood bank order? No Anesthesia consent pool notified? N/A Anesthesia evaluation requested per case documentation? No Preop Evaluation Requested? No PATIENT EDUCATION SCREENING Person taught: Patient Motivation Level: Asks Questions Language Barrier: No Physical Barrier: N/A METHOD: Lecture-telephone interview Patient Preferred Learning Methods: Lecture-Telephone interview Health History interview completed, questions answered, and the following patient instructions provided via telephone interview: Preoperative bathing instructions General preoperative instructions Medication instructions NPO instructions OUTCOME: State / Describe / Explain Elsa Fuller, MSN, RN [facility] 04/13/2024 documented in this encounter OR Notes * OR Surgeon - Areli Werner MD - 04/17/2024 12:00 PM EDT [facility]-[address] [id number] OPERATIVE REPORT Name: Maureen Billings Date: 04/17/2024 Time: 12:00 PM Location: OR [facility] Service: Gynecology Date of Operation: 04/17/2024 Pre-op Diagnosis: Abnormal uterine bleeding (AUB) (Primary) Primary dysmenorrhea Antithrombin III deficiency (HCC) BMI 45.0-49.9, adult (HCC) Hx tubal ligation Post-op Diagnosis: Abnormal uterine bleeding (AUB) (Primary) Primary dysmenorrhea Antithrombin III deficiency (HCC) BMI 45.0-49.9, adult (HCC) Hx tubal ligation Surgeon: Areli Werner MD Assistants: Kaity Liu MD PGY-3 Mony Thrasher DO PGY-1 Lauren Tomlinson MD 3 Anesthesia: General endotracheal anesthesia Operation: Total vaginal hysterectomy Cystoscopy Drains: campos to gravity; clear yellow urine noted at end of procedure Complications: none Findings: Normal appearing external genitalia. Cervix appears multiparous without obvious bleeding or masses. On cystoscopy, strong urine jets were noted from the ureteral orifices bilaterally. Condition: Good Specimens/Disposition: Uterus and cervix - to pathology Estimated Blood Loss: 400 mL IV Fluids: 1500 mL Urine Output: 250 mL Indications: Maureen Billings, 34 year old, with chief complaint of AUB refractory to medications. Description of Operation: After assuring informed consent, the patient was taken to the operating room. The patient was identified. The patient was given general endotracheal anesthesia and placed in the dorsal lithotomy position. The patient was prepped and draped in the usual sterile manner. Time out was performed and procedure verified. A campos catheter was placed. Retractors were placed in the vagina, the cervix was visualized and grasped with two single-tooth tenaculums. Monopolar cautery was used to incise circumferentially around the cervix. The mucosa was then bluntly dissected off the anterior and posterior cervix. Entry into the posterior peritoneum was made by elevating the vaginal mucosa away from the cervix and incising with grier scissors. The posterior peritoneum was attached to the vaginal cuff with a [id number] stitch of 0 Vicryl. A longweighted retractor was placed through the vagina into the posterior cul-de-sac. The uterosacral ligaments were clamped, cut, and suture ligated with 0 Vicryl bilaterally. The anterior peritoneum was identified, elevated off the cervix, and entered sharply with Metzenbaum scissors. Bilaterally, the cardinal ligaments serially clamped, cut, and suture ligated with 0 Vicryl, including ligation of the uterine vessels with care to avoid passing a needle through the vessels. The broad ligaments were s erially clamped, cut, and suture ligated with 0 Vicryl bilaterally. An 0 Vicryl tie was passed around the uterus and tied around the left utero-ovarian ligament and fallopian tube, which were then clamped, cut, and ligated with 0 Vicryl suture. This was again repeated on the right. The uterus and cervix was removed and sent to pathology. Anteriorly and posteriorly, the peritoneum was brought to the anterior vaginal cuff with a running locked stitch of 0 Vicryl suture for hemostasis and approximation. Bleeding was noted at the right lateral vaginal angle. Figure of eight sutures of 0 Vicryl were placed to assist in hemostasis. Hemostasis of all pedicles was noted and all tagged sutures were cut. The vaginal cuff was closed with a running locked stitch of 0 Vicryl suture. Attention was turned to the cystoscopy. Campos catheter removed in OR, noting 250 mL of clear yellowurine. A 70-degree cystoscope was inserted. Findings as noted above. The bladder was drained with removal of the scope. Sponge, needle, and instrument counts were correct. There were no intraoperative complications. The patient received Ancef 3g for antibiotic prophylaxis prior to the start of the procedure. Attestation: Dr. Werner was present and scrubbed for the entire procedure. Kaity Liu MD I was present and scrubbed for the entire procedure. * Operative Report Brief - Areli Werner MD - 04/17/2024 10:53 AM EDT [address] [id number] OPERATIVE REPORT - BRIEF Name: Maureen Billings Date: 04/17/2024 Time: 10:53 AM Location: OR [facility] Service: Gynecology Date of Operation: 04/17/2024 Pre-op Diagnosis: Abnormal uterine bleeding (AUB) (Primary) 2. Primary dysmenorrhea 3. Antithrombin III deficiency (HCC) 4. BMI 45.0-49.9, adult (HCC) 5. Hx tubal ligation Post-op Diagnosis: Abnormal uterine bleeding (AUB) (Primary) 2. Primary dysmenorrhea 3. Antithrombin III deficiency (HCC) 4. BMI 45.0-49.9, adult (HCC) 5. Hx tubal ligation Operation: Total vaginal hysterectomy Cystoscopy Surgeon: Areli Werner MD Assistants: Kaity Liu MD PGY-3 Mony Thrasher DO PGY-1 Lauren Tomlinson, MS 3 Anesthesia: General endotracheal anesthesia Drains: Campos intraoperatively Estimated Blood Loss: 400 ml. IV Fluids: 1500 ml. Urine Output: 250 ml. Specimens/Disposition: Uterus, cervix - to pathology Apparent Intraoperative Complications: NONE Patient Condition: good Disposition: In and Out recovery unit Attestation: Dr. Werner was present and scrubbed for the entire procedure documented in this encounter Plan of Treatment Upcoming Encounters Date Type Department Care Team (Late st Contact Info) Description 09/04/2024 10:00 AM EST Office Visit [facility] [address] [place] [id number] Marta Zendejas PA-C [address] [place] [address] Pending Results Name Type Priority Associated Diagnoses Date /Time SURGICAL PATHOLOGY Pathology Routine Abnormal uterine bleeding (AUB) Primary dysmenorrhea Antithrombin III deficiency (HCC) Superficial thrombophlebitis of right upper extremity 04/17/2024 10:47 AM EDT Scheduled Orders Name Type Priority Associated Diagnoses Orde r Schedule SURGICAL PATHOLOGY Pathology Routine Abnormal uterine bleeding (AUB) Primary dysmenorrhea Antithrombin III deficiency (HCC) Superficial thrombophlebitis of right upper extremity Release Upon Ordering for 1 Occurrences starting 04/17/2024 Scheduled Referrals Name Type Priority Associated Diagnoses Orde r Schedule HEMATOLOGY/ONCOLOGY REFERRAL OP Referral Within 10 days (routine) Antithrombin III deficiency (HCC) Ordered: 04/17/2024 Health Maintenance Due Date Last Done Comments Pneumococcal Vaccine: Pediatrics (0 to 5 Years) and At-Risk Patients (6 to 64 Years) (1 of 2 - PCV) 02/10/1996 Hepatitis C Screening 02/10/2008 Hepatitis B (1 of 3 - 19+ 3-dose series) 2009 GARDASIL-HPV IMMUNIZATION SERIES (2 - 3-dose series) 07/03/2015 06/05/2015 *SPIROMETRY ONCE FOR ASTHMA-ADULT 04/28/2023 COVID-19 Vaccine ( - season) 2023 11/22/2020, 11/12/2020 Depression Monitoring 05/20/2024 [...] Not on filedocumented as of this encounter Procedures Procedure Name Priority Date/Time Associated Diagnosis Comments CBC Routine 04/17/2024 7:08 AM EDT URINE SCREEN, POINT OF CARE (ENTER/EDIT) STAT 04/17/2024 6:28 AM EDT documented in this encounter Results * CBC (04/17/2024 7:08 AM EDT) WBC 7.51 4.00 - 10.80 K/uL 04/17/2024 7:20 AM EDT [facility] RBC 4.55 3.85 - 5.15 M/uL 04/17/2024 7:20 AM EDT [facility] HGB 13.0 12.0 - 15.3 g/dL 04/17/2024 7:20 AM EDT [facility] HCT 37.6 36.0 - 45.2 % 04/17/2024 7:20 AM EDT [facility] MCV 82.6 81.5 - 97.5 fL 04/17/2024 7:20 AM EDT [facility] MCH 28.6 27.0 - 34.0 pg 04/17/2024 7:20 AM EDT [facility] MCHC 34.6 32.0 - 36.0 g/dL 04/17/2024 7:20 AM EDT [facility] RDW 13.6 11.5 - 15.5 % 04/17/2024 7:20 AM EDT [facility] PLT 317 140 - 400 K/uL 04/17/2024 7:20 AM EDT [facility] MPV 8.5 6.6 - 11.1 fL 04/17/2024 7:20 AM EDT [facility] nRBCs 0 <=0 /100 WBCs 04/17/2024 7:20 AM EDT [facility] Blood Venous blood specimen / Unknown Venipuncture / Unknown 04/17/2024 7:08 AM EDT 04/17/2024 7:13 AM EDT Meli Berry DO LAB BLOOD ORDERABLES [facility] [address] [place] [address] * URINE SCREEN, POINT OF CARE (ENTER/EDIT) (04/17/2024 6:28 AM EDT) hCG Beta, Urine Negative Negative Procedural Control Valid? Yes Lot Number [id number] Expiration Date Urine 04/17/2024 6:28 AM EDT Meli Berry LAB POINT OF CARE TE ST ENTER/EDIT ORDERABLES documented in this encounter Visit Diagnoses Diagnosis Abnormal uterine bleeding (AUB)- Primary Primary dysmenorrhea Dysmenorrhea Antithrombin III deficiency (HCC) Primary hypercoagulable state Superficial thrombophlebitis of right upper extremity documented in this encounter Administered Medications Inactive Administered Medications - up to 3 most recent administrations Medication Order MAR Action Action Date Dose Rate Site Acetaminophen (Tylenol) tab 975 mg 975 mg, Oral, PREOP, First dose on Tue04/17/24 at 0700, Last dose on Tue04/17/24 at 0700, For 1 dose, Maximum 4 g acetaminophen/day. Avoid in patients with severe hepatic impairment or severe active liver disease. Administer 60 minutes prior to OR., Pre-Op Given 04/17/2024 7:13 AM EDT 975 mg celecoxib (CeleBREX) cap 400 mg 400 mg, Oral, PREOP, First dose on Tue04/17/24 at 0700, Last dose on Tue04/17/24 at 0700, For 1 dose, Contraindicated in setting of CABG surgery. Do not use in patients with CrCl < 60, receiving ketorolac, bone fracture. Reduce to 200 mg PO if greater than 65 years old . Administer 60 minutes prior to OR., Pre-Op Given 04/17/2024 7:11 AM EDT 400 mg hEParin inj 5,000 Units 5,000 Units, Subcutaneous, ONCALL, Starting on Tue04/17/24 at 0745, Until Tue04/17/24 at 0657, For 1 dose, Pre-Op Given 04/17/2024 6:57 AM EDT 5,000 Units Abdomen Right Upper HYDROmorphone (Dilaudid) inj 0.5 mg 0.5 mg, IV Push, Q10 MIN PRN Pain, Moderate, Starting on Tue04/17/24 at 1109, Until Tue04/17/24 at 1920, For 4 doses, PACU Given 04/17/2024 11:48 AM EDT 0.5 mg HYDROmorphone (Dilaudid) inj 1 mg 1 mg, IV Push, PRN Pain, Severe, Starting on Tue04/17/24 at 1109, Until Tue04/17/24 at 1138, For 1 dose, PACU Given 04/17/2024 11:38 AM EDT 1 mg isolyte-S pH 7.4 infusion Intravenous, at 10 mL/hr, KVO --- For Periop use. Plasma-LYTE 148, isolyte-S, and isolyte-S pH 7.4 are considered equivalent - including for MAR barcode scanning., CONTINUOUS, Starting on Tue04/17/24 at 0700, Until Tue04/17/24 at 1459, Pre-Op Restarted 04/17/2024 8:00 AM EDT Continue from Pre-Op 04/17/2024 7:36 AM EDT 10 mL/hr New Bag 04/17/2024 7:14 AM EDT 10 mL/hr ondansetron (Zofran) inj 4 mg 4 mg, IV Push, PRN Nausea, Starting on Tue04/17/24 at 1109, Until Tue04/17/24 at 1920, For 1 dose, PACU promethazine (Phenergan) tab 12.5 mg 12.5 mg, Oral, ONCE, On Tue04/17/24 at 0745, For 1 dose, Pre-Op Given 04/17/2024 7:17 AM EDT 12.5 mg documented in this encounter Active and Recently Administered Medications Times are shown in EDT. Scheduled Medication Order 04/15/2024 04/16/2024 04/17/2024 Acetaminophen (Tylenol) tab 975 mg (COMPLETED) 975 mg, Oral, PREOP, First dose on Tue04/17/24 at 0700, Last dose on Tue04/17/24 at 0700, For 1 dose, Maximum 4 g acetaminophen/day. Avoid in patients with severe hepatic impairment or severe active liver disease. Administer 60 minutes prior to OR., Pre-Op 0713 (Given - Provid er: Reshma Cason RN) ceFAZolin (Ancef) in NSS ivpb 3 g (COMPLETED) 3 g, IV Piggyback, PREOP, 1 dose, First dose on Tue04/17/24 at 0700, Administer 60 minutes prior to skin incision, Pre-Op 0800 (Given - Provid er: JACY Hernandez) celecoxib (CeleBREX) cap 400 mg (COMPLETED) 400 mg, Oral, PREOP, First dose on Tue04/17/24 at 0700, Last dose on Tue04/17/24 at 0700, For 1 dose, Contraindicated in setting of CABG surgery. Do not use in patients with CrCl < 60, receiving ketorolac, bone fracture. Reduce to 200 mg PO if greater than 65 years old . Administer 60 minutes prior to OR., Pre-Op 0711 (Given - Provid er: Reshma Cason RN) hEParin inj 5,000 Units (COMPLETED) 5,000 Units, Subcutaneous, ONCALL, Starting on Tue04/17/24 at 0745, Until Tue04/17/24 at 0657, For 1 dose, Pre-Op 0657 (Given - Provid er: Reshma Cason RN) promethazine (Phenergan) tab 12.5 mg (COMPLETED) 12.5 mg, Oral, ONCE, On Tue04/17/24 at 0745, For 1 dose, Pre-Op 0717 (Given - Provid er: Reshma Cason RN) Continuous Medication Order 04/15/2024 04/16/2024 04/17/2024 isolyte-S pH 7.4 infusion Intravenous, at 10 mL/hr, KVO --- For Periop use. Plasma-LYTE 148, isolyte-S, and isolyte-S pH 7.4 are considered equivalent - including for MAR barcode scanning., CONTINUOUS, Starting on Tue04/17/24 at 0700, Until Tue04/17/24 at 1459, Pre-Op 0714 (New Bag - Prov ider: Reshma Cason RN)0736 (Continue from Pre-Op - Provider: JACY Hernandez)0759 (Paused - Provider: JACY Hernandez - Comment: Switch to gravity)0800 (Restarted - Provider: JACY Hernandez)0842 (Anes Intra-Op Fluid - Provider: JACY Hernandez)1049 (Anes Intra-Op Fluid - Provider: Chris Rivas, MAMTA) isolyte-S pH 7.4 infusion Intravenous, at 50 mL/hr, For Periop use. Plasma-LYTE 148, isolyte-S, and isolyte-S pH 7.4 are considered equivalent - including for MAR barcode scanning., CONTINUOUS, Starting on Tue04/17/24 at 1130, Until 04/17/24 at 1529, Post-op 1130 (Due) PRN Medication Order 04/15/2024 04/16/2024 04/17/2024 Acetaminophen (Tylenol) tab 975 mg 975 mg, Oral, Q6H PRN Pain, Mild, Fever >38C(100.5F), Starting on 04/22/24 at 0000, Until Tue04/17/24 at 1920, Maximum 4 g acetaminophen/day. Avoid in patients with severe hepatic impairment or severe active liver disease. Begin after around the clock acetaminophen order discontinued (S+5)., Post-op HYDROmorphone (Dilaudid) inj 0.5 mg 0.5 mg, IV Push, Q10 MIN PRN Pain, Moderate, Starting on e 04/17/24 at 1109, Until 04/17/24 at 1920, For 4 doses, PACU 1148 (Given - Provid er: Ana Cristina Morrell RN) HYDROmorphone (Dilaudid) inj 1 mg (COMPLETED) 1 mg, IV Push, PRN Pain, Severe, Starting on e 04/17/24 at 1109, Until 04/17/24 at 1138, For 1 dose, PACU 1138 (Given - Provid er: Ana Cristina Morrell RN) ondansetron (Zofran) inj 4 mg 4 mg, IV Push, Q6H PRN Nausea, Starting on e 04/17/24 at 1051, Until 04/17/24 at 1920, Post-op ondansetron (Zofran) inj 4 mg 4 mg, IV Push, PRN Nausea, Starting on 04/17/24 at 1109, Until 04/17/24 at 1920, For 1 dose, PACU oxyCODONE (Oxy IR) tab 5 mg 5 mg, Oral, Q4H PRN Pain, Moderate, Starting on Tue04/17/24 at 1052, Until 04/17/24 at 1920, Hold for somnolence or respiratory rate less than 10, Post-op sodium chloride IR 0.9 % irrigation (CANCELED) ONCE PRN INTRA PROCEDURE, Starting on e 04/17/24 at 0829, Until 04/17/24 at 1058, Intra-Op 0829 (Given - Provid er: Areli Werner MD - Comment: prn back table) sterile water for irrigation irrigation (CANCELED) ONCE PRN INTRA PROCEDURE, Starting on Tue04/17/24 at 0829, Until 04/17/24 at 1058, Intra-Op 0829 (Given - Provid er: Areli Werner MD - Comment: prn prep) documented in this encounter Advance Directives * [...] and were consensually agreed upon. Care Teams Sports Medicine Physician Relationship Specialty Start Date End Date Marta Zendejas PA-C [address] [facility] [place] [id number] PCP - General Physician Nursing Techn 03/08/22 documented as of this encounter
--- OUTSIDE RECORDS SUMMARY | 2024-05-11 21:29 | External Medical Summary ---
Author Name Unknown Address Unknown Organization K01:[facility] [address] [place] [address] Laboratory Report Ordering Provider Test Date Status JOSE COLE 03/02/2024 09:23:53 Final Observation Date Value Abnormality Reference (Units ) Status Lipase 03/02/2024 09:23:53 24 13-60 (U/L ) Final Performing Location [facility] [address] [place] [address]
--- OUTSIDE RECORDS SUMMARY | 2024-05-11 21:29 | External Medical Summary | Summary of Care ---
Author Name Unknown Organization [facility] [address] [place] [address] Phone [phone] Care Team Providers Care Reset Merchandiser Name Role Phone Marta Zendejas PA-C Primary Care Provider [phone] [phone] Reason for Visit * Reason Onset Date Comments Surgery 03/02/2024 Encounter Details Date Type Department Care Team (Late st Contact Info) Description 03/02/2024 Telephone Gynecology/Obstetrics [facility] [address], [place] [phone] Areli Werner MD [address], [place] [phone] Surgery Allergies Active Allergy Reactions Criticality Noted Date [...] with contractions with cervical dilation, pt left [facility] at 34wks with cervical dilation of 4-5cm, 80% effaced. She delivered at [facility] at 35w6d. MFM consult Threatened premature labor, antepartum 09/24/2011 10/22/2011 Overview: VE 4cm. Steriod benfited. Admitted and disch from [facility] at 4cm NST [...] on to deliver at 38 weeks Per MF on 06/08/11: The transvaginal cervical length was [...] encounter Miscellaneous Notes * Telephone Encounter - Inna Lawton OSA - 03/02/2024 3:58 PM EDT Originally scheduled pt on 03/20 at [facility] w/ Dr. Werner. Dr. Werner now unavailable on that date. Pt agreeable to new date of 04/17 at [facility]. OR aware. Needs NEREYDA pre- op and 2 wk post-op. Pt awaiting call from OR day before surg. Direct # provided. documented in this encounter Plan of Treatment Upcoming Encounters Date Type Department Care Team (Latest Contact Info) Description 04/17/2024 7:30 AM EDT Hospital Encounter OR [facility], Operating Room, [facility] - 2nd Floor [address] [place] [phone] Areli Werner MD [address], [place] [phone] 04/17/2024 7:30 AM EDT - 04/17/2024 11:02 AM EDT Surgery OR [facility], Operating Room, [facility] - 2nd Floor [address] [place] [phone] Areli Werner MD [address], [place] [phone] VAGINAL HYSTERECTOMY REMOVAL TUBES AND OR OVARIES 09/04/2024 10:00 AM EST Office Visit [facility] [address] [place] [phone] Marta Zendeajs PA-C [address], [place] [phone] Scheduled Procedures Name Priority Associated Diagnoses Date/Ti [...] FOR ASTHMA-ADULT 04/28/2023 COVID-19 Vaccine (3 - 2022-24 season) 2023 11/22/2020, 11/12/2020 Influenza Vaccine (FLU shot) (Season Ended) 2024 09/11/2018, 09/16/2009 HbA1c 03/02/2025 03/02/2024, 12/23, 09/02/2023, Additional history exists Pap Smear 03/22/2026 03/22/2023, [...] and were consensually agreed upon. Care Teams Reset Merchandiser Relationship Specialty Start Date End Date Marta Zendejas PA-C [address] [facility] [place] [address] PCP - General Physician Car Ferry Captain 03/08/22 documented as of this encounter
--- OUTSIDE RECORDS SUMMARY | 2024-05-11 21:29 | External Medical Summary ---
Author Name Unknown Address Unknown Organization [id number]:[place] [place] [address] [place] [address] Laboratory Report Ordering Provider Test Date Status JOSE COLE 03/02/2024 09:23:53 Final Observation Date Value Abnormality Reference (Units ) Status Follitropin [Units/volume] in Serum or Plasma by 2nd IRP 03/02/2024 09:23:53 5.0 (mIU/mL) Final Follicular Phase: 3.5- 12.5 mIU/mL
Ovulation Phase: 4.7- 21.5 mIU/mL
Luteal Phase: 1.7- 7.7 mIU/mL
Postmenopausal: 25.8-134.8 mIU/mL Performing Location [facility] [place] [address] [place] [address]
--- OUTSIDE RECORDS SUMMARY | 2024-05-11 21:29 | External Medical Summary ---
Author Name Unknown Address Unknown Organization : Laboratory Report Ordering Provider Test Date Status JOSE COLE 03/02/2024 09:23:53 Final Observation Date Value Abnormality Reference (Units ) Status ESTROGEN, TOTAL, SERUM 03/02/2024 09:23:53 211 (pg/mL) Final Reference Ranges for Total E strogen:
Follicular Phase: 51-601
Luteal Phase: 87-1194
Postmenopausal: < or = 214
Test performed by [facility]
[address],
[place] [address]

Herpetologist: Angy Thompson MD,PHD,CASPER
Test Reported by [facility],
[facility],
[address] [place], [place]
Ruben Pabon M.D., Ph.D., Director of Laboratories
, CLIA [id number] Performing Location
--- OUTSIDE RECORDS SUMMARY | 2024-05-11 21:29 | External Medical Summary | Summary of Care ---
Author Name Unknown Organization [facility] Address [address] [place] [address] Phone [phone] Care Team Providers Care Engraver Block Name Role Phone Marta Zendejas PA-C Primary Care Provider [phone] [phone] Reason for Visit * Reason Onset Date Comments Medication Refill 02/06/2024 Encounter Details Date Type Department Care Team (Late st Contact Info) Description 02/06/[address] [address] Janny Murguia, DNP [address] [place] [address] Insulin resistance Allergies Active Allergy Reactions Criticality Noted Date Comments Pollen 05/27/2020 documented as of this encounter (statuses as of 02/29/2024) Medications Medication Sig Dispensed Refills Start Date [...] a week. 3 mL 0 02/07/2024 Active Ozempic (0.25 or 0.5 MG/DOSE) 2 MG/3ML Solution Pen-injector (Semaglutide(0.25 or 0.5MG/DOS))Indicat ions:Insulin resistance Inject 0.25 mg under the skin once a week. For four weeks then increase to 0.5 mg weekly 3 mL 2 12/15/2023 Discontinue d(Medicatio n/Dose Changed) documented as of this encounter (statuses as of 02/29/2024) Active Problems Problem Noted Date Diagnosed Date [...] as of this encounter (statuses as of 02/29/2024) Resolved Problems Problem Noted Date Diagnosed Date [...] with contractions with cervical dilation, pt left [facility]MA at 34wks with cervical dilation of 4-5cm, 80% effaced. She delivered at [facility] at 35w6d. MFM consult Threatened premature labor, antepartum 09/24/2011 10/22/2011 Overview: VE 4cm. Steriod benfited. Admitted and disch from [facility] at 4cm NST 2x/week and ASHISH And [...] as of this encounter (statuses as of 02/29/2024) Immunizations Name Administration Dates Next Due COVID-19 [...] encounter Miscellaneous Notes * Telephone Encounter - Marta Zendejas PA-C - 02/07/2024 12:45 PM EDTSigned Prescriptions: Disp Refills Ozempic (0.25 or 0.5 MG/DOSE) 2 MG/3ML Lauren*3 mL 0 Sig: Inject 0.5 mg under the skin once a week.Authorizing Provider: MARTA ZENDEJAS ARefused Prescriptions: Disp Refills Ozempic (0.25 or 0.5 MG/DOSE) 2 MG/3ML Lauren*3 mL 2 Sig: Inject 0.25 mg under the skin once a week. For four weeks then increase to 0.5 mg weeklyRefused By: CAMILO WALLER [facility] for Refusal: Other (comment below)Reason for Refusal Comment: dose titration----- * Telephone Encounter - Camilo Sofia [facility] - 02/07/2024 11:47 AM EDTPending Prescriptions: Disp Refills Ozempic (0.25 or 0.5 MG/DOSE) 2 MG/3ML Lauren*3 mL 0 Sig: Inject 0.5 mg under the skin once a week. Refused Prescriptions: Disp Refills Ozempic (0.25 or 0.5 MG/DOSE) 2 MG/3ML Lauren*3 mL 2 Sig: Inject 0.25 mg under the skin once a week. For four weeks then increase to 0.5 mg weekly Refused By: CAMILO WALLER Reason for Refusal: Other (comment below) Reason for Refusal Comment: dose titration * Telephone Encounter - Camilo Sofia [facility] - 02/07/2024 11:43 AM EDT Spoke to pt and she is doing well on Ozempic. Requesting Rx for 0.5mg per week to hold until officevisit on 03/02/24 and will discuss further dose titration at that time. Rx for Ozempic 0.5mg pended. * Telephone Encounter - Camilo Sofia [facility] - 02/07/2024 11:40 AM EDT Pending Prescriptions: Disp Refills Ozempic (0.25 or 0.5 MG/DOSE) 2 MG/3ML So*3 mL 2 Sig: Inject 0.25 mg under the skin once a week. For four weeks then increase to 0.5 mg weekly Last Visit: 10/25/2023 (in office), 04/25/2023 (telemedicine) Next Visit: 03/02/2024 If no future appointments scheduled, and last appointment is greater than a year ago, please schedule patient for a follow-up appointment Last date the medication was ordered: 12/15/23 [facility] [address] [address] [address] [place] Is this request for a controlled substance? No Urine Drug Screen:No results found. However, due to the size of the patient record, not all encounters were searched. Please check Results Review for a complete set of results. Patient Phone Numbers Labs: Lab Results Component Value Date/Time CREAT 0.7 09/21/2022 09:23 AM CREAT 0.72 07/31/2018 12:00 AM CREAT 0.8 09/13/2016 02:43 PM POTASSIUM 3.7 09/21/2022 09:23 AM POTASSIUM 3.7 07/31/2018 12:00 AM POTASSIUM 4.5 06/05/2015 11:45 AM TSH 3.71 03/29/2023 08:04 AM TSH 2.44 07/18/2020 09:51 AM LDLCALC 101 01/12/2024 09:09 AM ALT 19 09/21/2022 09:23 AM ALT 31 03/30/2017 12:00 AM ALT 18 06/05/2015 11:45 AM HGBA1C 5.7 (H) 01/12/2024 09:09 AM HGBA1C 5.7 (H) 07/18/2020 09:51 AM documented in this encounter Plan of Treatment Upcoming Encounters Date Type Department Care Team (Late st Contact Info) Description 03/02/2024 8:40 AM EDT Office Visit [facility] [address] [place] [phone] Marta Zendejas PA-C [address] [place] [address] Health Maintenance Due Date Last Done Comments Pneumococcal Vaccine: Pediatrics (0 to 5 Years) and At-Risk Patients (6 to 64 Years) (1 of 2 - PCV) 02/10/1996 Hepatitis C Screening 02/10/2008 Hepatitis B (1 of 3 - 19+ 3-dose series) 2009 GARDASIL-HPV IMMUNIZATION SERIES (2 - 3-dose series) 07/03/2015 06/05/2015 *SPIROMETRY ONCE FOR ASTHMA-ADULT 04/28/2023 COVID-19 Vaccine ( - season) 2023 11/22/2020, 11/12/2020 Influenza Vaccine (FLU [...] as of this encounter Visit Diagnoses Diagnosis Insulin resistance Dysmetabolic Syndrome X documented in this encounter Advance Directives Latest [...] and were consensually agreed upon. Care Teams Engraver Block Relationship Specialty Start Date End Date Marta Zendejas PA-C [address] [place] [address] PCP - General Physician Unit Nurse 03/08/22 documented as of this encounter
--- OUTSIDE RECORDS SUMMARY | 2024-05-11 21:29 | External Medical Summary ---
Author Name Unknown Address Unknown Organization [id number]:LABORATORY [facility] - [address] [place] [address] Laboratory Report Ordering Provider Test Date Status JOSE COLE 03/02/2024 09:23:53 Final Observation Date Value Abnormality Reference (Units ) Status TSH 03/02/2024 09:23:53 3.10 0.27-4.20 (uIU/mL) Final Performing Location [facility] - [address] [place] [address]
--- OUTSIDE RECORDS SUMMARY | 2024-05-11 21:29 | External Medical Summary ---
Author Name Unknown Address Unknown Organization K01:LABORATORY [facility] [place] [place] [address] [place] [address] Laboratory Report Ordering Provider Test Date Status JOSE COLE 03/02/2024 09:23:53 Final Observation Date Value Abnormality Reference (Units ) Status HbA1C 03/02/2024 09:23:53 5.6 4.0-5.6 (% ) Final The use of HbA1c to monitor glycemic status is based on normal hemoglobin and HbA composition. This test should not be used in patients with abnormal hemoglobin that affects the half life of the red blood cell or the in vivo glycation rates. Glucose, estimated average 03/02/2024 09:23:53 114 <126 (mg/dL) Final Performing Location LAB[facility] - [address] [place] [address]
--- OUTSIDE RECORDS SUMMARY | 2024-05-11 21:29 | External Medical Summary | Summary of Care ---
Author Name Unknown Organization [facility] Address [address] [place] [facility] [place] [address] Phone [phone] Care Team Providers Care Marble Cleaner Name Role Phone Marta Zendejas PA-C Primary Care Provider [phone] [phone] Reason for Visit * Reason Comments Outpatient Testing Encounter Details Date Type Department Care Team (Late st Contact Info) Description 03/02/2024 9:20 AM EDT Laboratory Laboratory, [place] [address] [place] [address] [facility] [address] [place] [address] Secondary amenorrhea; Encounter for long-term (current) use of medications; Metabolic syndrome; Body mass index (BMI) of 45.0 to [...] with contractions with cervical dilation, pt [place] [facility] [place] at 34w[place] with cervical dilation of 4-5cm, 80% effaced. She delivered at [facility] at 35w6d. MFM consult Threatened premature labor, antepartum 09/24/2011 10/22/2011 Overview: VE 4cm. Steriod benfited. Admitted and disch from [facility] at 4cm NST 2x/week and ASHISH And [...] Description 09/04/2024 10:00 AM EST Office Visit [facility] [address] [place] [facility] [place] [phone] Marta Zendejas PA-C [address] [facility] [place] [phone] Pending Results Name Type Priority Associated Diagnoses Date /Time TSH WITH FREE T4 IF INDICATED Lab Routine Secondary amenorrhea 03/02/2024 9:23 AM EDT FSH Lab Routine Secondary amenorrhea 03/02/2024 9:23 AM EDT ESTROGEN, TOTAL, SERUM Lab Routine Secondary amenorrhea 03/02/2024 9:23 AM EDT BETA-HCG, QUANTITATIVE Lab Routine Secondary amenorrhea 03/02/2024 9:23 AM EDT LIPASE Lab Routine Encounter for long-term (current) use of medications 03/02/2024 9:23 AM EDT HEMOGLOBIN A1C Lab Routine Metabolic syndrome Body mass index (BMI) of 45.0 to 49.9 in adult ([facility]) 03/02/2024 9:23 AM EDT INSULIN Lab Routine Metabolic syndrome Body mass index (BMI) of 45.0 to 49.9 in adult ([facility]) 03/02/2024 9:23 AM EDT Health Maintenance Due Date Last [...] of this encounter Visit Diagnoses Diagnosis Secondary amenorrhea Absence of menstruation Encounter for long-term (current) use of medications Encounter for long-term (current) use of other medications Metabolic syndrome Dysmetabolic Syndrome X Body mass index (BMI) of 45.0 to [...] and were consensually agreed upon. Care Teams Marble Cleaner Relationship Specialty Start Date End Date Marta Zendejas PA-C [address] [facility] [place] [address] PCP - General Physician Devops Engineer 03/08/22 documented as of this encounter
--- OUTSIDE RECORDS SUMMARY | 2024-05-11 21:30 | External Medical Summary | Summary of Care ---
Author Name Unknown Organization [facility] Address [address] [facility] [place] [address] Phone [phone] Care Team Providers Care Senior Sharepoint Developer Name Role Phone Marta Zendejas PA-C Primary Care Provider [phone] [phone] Reason for Visit * Reason Comments eRx-Medication Refill Encounter Details Date Type Department Care Team (Late st Contact Info) Description 12/30/2023 Refill [facility] [address] [place] [address] Marta Zendejas PA-C [address] [place] [address] Allergies Active Allergy Reactions Criticality Noted Date Comments Pollen 05/27/2020 documented as of this encounter (statuses as of 12/30/2023) Medications Medication Sig Dispensed Refills Start Date [...] at bedtime. 90 Tablet 1 11/04/2023 Active Ozempic (0.25 or 0.5 MG/DOSE) 2 MG/3ML Solution Pen-injector (Semaglutide(0.25 or 0.5MG/DOS))Indicat ions:Insulin resistance Inject 0.25 mg under the skin once a week. For four weeks then increase to 0.5 mg weekly 3 mL 2 12/15/2023 Active Montelukast Sodium 10 MG Oral Tablet (Singulair) TAKE 1 TABLET BY MOUTH ONCE DAILY AT BEDTIME 90 Tablet 3 12/30/2023 Active Montelukast Sodium 10 MG Oral Tablet (Singulair) TAKE 1 TABLET BY MOUTH DAILY AT BEDTIME 90 Tablet 1 07/05/2023 Discontinued documented as of this encounter (statuses as of 12/30/2023) Active Problems Problem Noted Date Diagnosed Date Insulin resistance 10/25/2023 Restless legs syndrome 04/25/2023 Endometriosis 04/25/2023 Mild intermittent asthma, uncomplicated 04/25/20 Major depressive disorder with single episode Mood disorder 04/25/2023 Prediabetes 04/04/2023 Overview: Per Prediabetes protocol Superficial thrombophlebitis of right upper extr emity 03/22/2023 Overview: Right basilic vein superficial thrombophlebitis. Diagnoses 07/2022 Body mass index (BMI) of 45.0 to 49.9 in adult 0 01/03/2023 Overview: Per Obesity protocol - Per Obesity protocol - Per Obesity protocol - Per Obesity protocol Hyperinsulinemia 06/22/2016 Migraine 01/06/2009 Overview: None in years. documented as of this encounter (statuses as of 12/30/2023) Resolved Problems Problem Noted Date Diagnosed Date Resolved Date Body mass index (BMI) of 50. 0 [...] with contractions with cervical dilation, pt left [facility] AMA at 34wks with cervical dilation of 4-5cm, 80% effaced. She delivered at [facility] at 35w6d. MFM consult Threatened premature labor, antepartum 09/24/2011 10/22/2011 Overview: VE 4cm. Harriet helton. Admitted and disch from [facility] at 4cm NST 2x/week and ASHISH And [...] Allergic rhinitis 01/27/2010 12/12/2013 Vertigo 01/27/2010 12/12/2013 Acute URI 01/27/2010 04/08/2011 OB Shamir Stephenson HBP 09/16/200905/25 Overview: Patient received H1N1 vaccine. 09/16/2009 Elba Lopez, RN 02/19/2010 Betamethasone given Lacey RYAN Gastritis and gastroduodenitis 06/10/2009 12/12/2013 Irritable bowel syndrome 01/29/2009 Flatulence, eructation and gas pain 01/29/2009 09/16/2009 FOREIGN BODY IN MOUTH - tongue piercing 01/29/2009 12/12/2013 Major depressive disorder 07/15/2008 Overview: Celexa 40mg daily ICD-10 update of inactive term Panic disorder 10/04/2007 12/12/2013 Chest pain 10/04/2007 04/08/2011 documented as of this encounter (statuses as of 12/30/2023) Immunizations Name Administration Dates Next Due COVID-19 mRNA, LNP-s, No Pre serve, 2-Dose Series ([employer]) 11/22/2020,11/12/2020 H1N1 2009 Influenza, IM 09/16/2009 HPV [...] encounter Miscellaneous Notes * Telephone Encounter - Norm Oliva RPh - 12/30/2023 11:22 AM EST Signed Prescriptions: Disp Refills Montelukast Sodium 10 MG Oral Tablet (Sing*90 Tab*3 Sig: TAKE 1 TABLET BY MOUTH ONCE DAILY AT BEDTIMEAuthorizing Provider: MARTA ZENDEJAS User: NORM OLIVA documented in this encounter Plan of Treatment Upcoming Encounters Date Type Department Care Team (Late st Contact Info) Description 03/02/2024 8:40 AM EDT Office Visit [facility] [address] [place] [facility] [place] [address] Marta Zendejas PA-C [address] [place] [facility] [place] [address] Health Maintenance Due Date Last Done Comments Pneumococcal Vaccine: Pediatrics (0 to 5 Years) and At-Risk Patients (6 to 64 Years) (1 of 2 - PCV) 02/10/1996 Hepatitis C Screening 02/10/2008 Hepatitis B (1 of 3 - 19+ 3-dose series) 2009 GARDASIL-HPV IMMUNIZATION SERIES (2 - 3-dose series) 07/03/2015 06/05/2015 *SPIROMETRY ONCE FOR ASTHMA-ADULT 04/28/2023 COVID-19 Vaccine (2022- season) 2023 11/22/2020, 11/12/2020 Influenza Vaccine (FLU shot) (#1) 2023 09/11/2018, 09/16/2009 Depression Screening 05/20/2024 05/20/2023 HbA1c 09/02/2024 09/02/2023, 06/0 03/2023, 07/18/2020, Additional history exists Pap Smear 03/22/2026 03/22/2023, [...] Code 10/06/2011 3:22 PM 10/08/2011 6:05 PM Th is order reflects the patients wishes and were consensually agreed upon. Full Code 09/20/2011 9:09 PM 09/22/2011 8:58 PM Thi s order reflects the patients wishes and were consensually agreed upon. Care Teams Senior Sharepoint Developer Relationship Specialty Start Date End Date Marta Zendejas PA-C [address] [place] [address] PCP - General Physician Side Boss 03/08/22 documented as of this encounter
--- OUTSIDE RECORDS SUMMARY | 2024-05-11 21:30 | External Medical Summary ---
Author Name Unknown Address Unknown Organization K01:LABORATORY [facility] - [address] [place] [address] Laboratory Report Ordering Provider Test Date Status DOUGLASZENAIDAART 01/12/2024 09:09:42 Final Observation Date Value Abnormality Reference (Units ) Status Insulin level 01/12/2024 09:09:42 25 3-25 ( uU/mL) Final The above reference interval is based on fasting status. Performing Location LABORATORY [facility] - [address] [place] [address]
--- OUTSIDE RECORDS SUMMARY | 2024-05-11 21:30 | External Medical Summary ---
Author Name Unknown Address Unknown Organization K01:LABORATORY [facility] - [address] [facility] [address] [place] [address] Laboratory Report Ordering Provider Test Date Status JOSE COLE 01/12/2024 09:09:42 Final Observation Date Value Abnormality Reference (Units ) Status SYNC LEUKOCYTES IN BLOOD BY AUTOMATED COUNT 01/12/2024 09:09:42 8.20 4.00-10.80 (K/uL) Final Segs 01/12/2024 09:09:42 47.1 40.0-75.0 (%) Final Lymphs % 01/12/2024 09:09:42 42.4 Above high normal 18.0-42.0 (%) Final Monos 01/12/2024 09:09:42 7.0 1.0-11.0 (%) Final Eosinophils 01/12/2024 09:09:42 2.7 0.0-6.0 (%) Final Basos 01/12/2024 09:09:42 0.6 0.0-2.0 (%) Final Immature Granulocyte, Percent 01/12/2024 09:09:42 0.2 0.0-2.0 (%) Final Absolute Segs 01/12/2024 09:09:42 3.86 1.80-7.70 (K/uL) Final Lymphs, absolute 01/12/2024 09:09:42 3.48 1.00-4.80 (K/ul) Final Monos, Abs 01/12/2024 09:09:42 0.57 0.00-1.10 (K/uL) Final Eos, Abs 01/12/2024 09:09:42 0.22 0.00-0.70 (K/uL) Final Basos, Abs 01/12/2024 09:09:42 0.05 0.00-0.20 (K/uL) Final Immature Granulocytes, Number 01/12/2024 09:09:42 0.02 0.00-0.20 (K/uL) Final Performing Location [facility]ORY [facility] [place] [address] [facility] [address]
--- OUTSIDE RECORDS SUMMARY | 2024-05-11 21:30 | External Medical Summary ---
Author Name Unknown Address Unknown Organization K01:[facility] [place] [facility] [address] [place] [address] Laboratory Report Ordering Provider Test Date Status JOSE COLE 01/12/2024 09:09:42 Final Observation Date Value Abnormality Reference (Units ) Status Triglyceride 01/12/2024 09:09:42 266 Above high normal <=174 (mg/dL) Final Triglyceride Reference Range s (mg/dL):
<150 Acceptable
150-174 Borderline high
175-499 High
>=500 Very high Cholesterol 01/12/2024 09:09:42 207 Above high normal <200 (mg/dL) Final Total Cholesterol Reference Ranges (mg/dL):
<200 Desirable
200-239 Borderline high
>=240 High HDL 01/12/2024 09:09:42 53 >49 (mg/dL ) Final HDL Cholesterol Reference Ra nges (mg/dL):
>=60 High (Desirable)
<50 Low (Undesirable) For Females
<40 Low (Undesirable) For Males NON-HDL CHOLESTEROL 01/12/2024 09:09:42 154 <=159 (mg/dL) Final Non-HDL Cholesterol Referenc e Range (mg/dL):
<100 Target level for high risk ASCVD patient
<130 Optimal for general population
130-159 Near optimal for general population
160-189 Borderline High
190-219 High
>=220 Very High LDL, (calculated) 01/12/2024 09:09:42 101 <= 129 (mg/dL) Final LDL Cholesterol Reference Ra nges (mg/dL):
<70 Target level for high risk ASCVD patient
<100 Optimal for general population
100-129 Near optimal for general population
130-159 Borderline high
160-189 High
>=190 Very high Performing Location LABORATORY [facility] [place] [address] [facility] [address]
--- OUTSIDE RECORDS SUMMARY | 2024-05-11 21:30 | External Medical Summary ---
Author Name Unknown Address Unknown Organization K01:LABORATORY [facility] [place] - [address] [place] [address] Laboratory Report Ordering Provider Test Date Status JOSE COLE 01/12/2024 09:09:42 Final Observation Date Value Abnormality Reference (Units ) Status WBC, Total 01/12/2024 09:09:42 8.20 4.00-10.80 (K/uL) Final RBC 01/12/2024 09:09:42 4.75 3.85-5.15 (M/uL) Final Hemoglobin 01/12/2024 09:09:42 13.3 12.0-15.3 (g/dL) Final HCT 01/12/2024 09:09:42 40.5 36.0-45.2 (%) Final MCV 01/12/2024 09:09:42 85.3 81.5-97.5 (fL) Final MCH 01/12/2024 09:09:42 28.0 27.0-34.0 (pg) Final MCHC 01/12/2024 09:09:42 32.8 32.0-36.0 (g/dL) Final RDW 01/12/2024 09:09:42 13.8 11.5-15.5 (%) Final Platelets 01/12/2024 09:09:42 382 140-400 (K/uL) Final MPV 01/12/2024 09:09:42 8.7 6.6-11.1 (fL) Final Nucleated erythrocytes/100 leukocytes [Ratio] in Blood by Automated count 01/12/2024 09:09:42 0 <=0 (/100 WBCs) Final Performing Location LABORATORY [facility] - [address] [place] [address]
--- OUTSIDE RECORDS SUMMARY | 2024-05-11 21:30 | External Medical Summary | Summary of Care ---
Author Name Unknown Organization [facility] Address [address] [place] [address] Phone [phone] Care Team Providers Care Clerical Investigator Name Role Phone Marta Zendejas PA-C Primary Care Provider [phone] Reason for Visit * Reason Onset Date Comments Medication Refill 02/06/2024 Encounter Details Date Type Department Care Team (Late st Contact Info) Description 02/06/[address] [address] Janny Murguia, DNP [address] [place] [address] Insulin resistance Allergies Active Allergy Reactions Criticality Noted Date Comments Pollen 05/27/2020 documented as of this encounter (statuses as of 02/07/2024) Medications Medication Sig Dispensed Refills Start Date [...] as of this encounter (statuses as of 02/07/2024) Active Problems Problem Noted Date Diagnosed Date Insulin resistance 10/25/2023 Restless legs syndrome 04/25/2023 Endometriosis 04/25/2023 Mild intermittent asthma, uncomplicated 04/25/20 23 Major depressive disorder with single episode Mood [...] as of this encounter (statuses as of 02/07/2024) Resolved Problems Problem Noted Date Diagnosed Date [...] contractions with cervical dilation, pt left [facility] AMA at 34wks with cervical dilation of 4-5cm, 80% effaced. She delivered at [facility] at 35w6d. MFM consult Threatened premature labor, antepartum 09/24/2011 10/22/2011 Overview: VE 4cm. Steriod cashfited. Admitted and disch from [facility] at 4cm NST [...] 01/27/2010 12/12/2013 Acute URI 01/27/2010 04/08/2011 OB [facility] HBP 09/16/200905/25 Overview: Patient received H1N1 vaccine. [...] as of this encounter (statuses as of 02/07/2024) Immunizations Name Administration Dates Next Due COVID-19 mRNA, LNP-s, No Pre serve, 2-Dose Series (Branchly) 11/22/2020,11/12/2020 H1N1 2009 Influenza, IM 09/16/2009 HPV [...] under the skin once a week.Authorizing Provider: MRATA ZENDEJAS ARefused Prescriptions: DispRefills Ozempic (0.25 or 0.5 MG/DOSE) 2 MG/3ML Lauren*3 mL 2 Sig: Inject 0.25 mg under the skin once a week. For four weeks then increase to 0.5 mg weeklyRefused By: NIKI WALLER for Refusal: Other (comment below)Reason for Refusal Comment: dose titration----- * [facility] 11[facility]47 AM EDTPending Prescriptions: [...] increase to 0.5 mg weekly Refused By: NIKI WALLER Reason for Refusal: Other (comment below) Reason for Refusal Comment: dose titration * Telephone Encounter - Niki Sofia [facility] - 02/07/2024 11:43 AM EDT Spoke to pt and she is doing well on Ozempic. Requesting Rx for 0.5mg per week to hold until officevisit on 03/02/24 and will discuss further dose titration at that time. Rx for Ozempic 0.5mg pended. Please approve if appropriate. Thank You, Niki Orta. Chris [facility] Clinical Pharmacist [facility] ([facility]PS) (formerly Telepharmacy) 02/07/2024, 11:44 AM * Telephone Encounter - Niki Sofia [facility] - 02/07/2024 11:40 AM EDT Pending Prescriptions: [...] date the medication was ordered: 12/15/23 Pharmacy: [facility] [address] [place] [address] [place] Is this request for a [...] 03/02/2024 8:40 AM EDT Office Visit [facility] [place] [address] [place] [facility] [place] [phone] Marta Zendejas PA-C [address] [place] [facility] [place] [address] Health Maintenance Due Date Last Done Comments [...] and were consensually agreed upon. Care Teams Clerical Investigator Relationship Specialty Start Date End Date Marta Zendejas PA-C [address] [place] [address] PCP - General Physician Collection Manager 03/08/22 documented as of this encounter
--- OUTSIDE RECORDS SUMMARY | 2024-05-11 21:30 | External Medical Summary ---
Author Name Unknown Address Unknown Organization K01:LABORATORY [facility] - [address] [place] [address] Laboratory Report Ordering Provider Test Date Status LEESA CHARLES 01/12/2024 09:09:42 Final Observation Date Value Abnormality Reference (Units ) Status MYCODE SPECIMEN-SST 01/12/2024 09:09:42 Freezing of extracted DNA, whole blood and/or serum. Final Performing Location LAB[facility] - [address] [place] [address]
--- OUTSIDE RECORDS SUMMARY | 2024-05-11 21:30 | External Medical Summary | Summary of Care ---
Author Name Unknown Organization [facility] Address [address] [facility] [place] [address] Phone [phone] Care Team Providers Care Shredded Filler Cigar Maker Machine Name Role Phone Marta Zendejas PA-C Primary Care Provider [phone] Reason for Visit * Reason Comments Outpatient Testing Encounter Details Date Type Department Care Team (Late st Contact Info) Description 01/12/2024 9:10 AM EDT Laboratory Laboratory, [place] [address] [place] [address] [facility] [address] [place] [address] [employer] Other*[id number]; Insulin resistance; Restless legs syndrome Allergies Active Allergy Reactions Criticality Noted Date Comments Pollen 05/27/2020 documented as of this encounter (statuses as of 01/12/2024) Medications Medication Sig Dispensed Refills Start Date [...] MG/DOSE) 2 MG/3ML Solution Pen-injector (Semaglutide(0.25 or 0.5MG/DOS))Indicatio ns:Insulin resistance Inject 0.25 mg under the skin once a week. For four weeks then increase to 0.5 mg weekly 3 mL 2 12/15/2023 Active Montelukast Sodium 10 MG Oral Tablet (Singulair) TAKE 1 TABLET BY MOUTH ONCE DAILY AT BEDTIME 90 Tablet 3 12/30/2023 Active documented as of this encounter (statuses as of 01/12/2024) Active Problems Problem Noted Date Diagnosed Date [...] as of this encounter (statuses as of 01/12/2024) Resolved Problems Problem Noted Date Diagnosed Date [...] with contractions with cervical dilation, pt left [facility] AMA at 34wks with cervical dilation of 4-5cm, 80% effaced. She delivered at [facility] at 35w6d. M consult Threatened premature labor, antepartum 09/24/2011 10/22/2011 Overview: VE 4cm. Steriod benfited. Admitted and disch from [facility] at 4cm NST 2x/week and ASHISH And [...] as of this encounter (statuses as of 01/12/2024) Immunizations Name Administration Dates Next Due COVID-19 mRNA, LNP-s, No Pre serve, 2-Dose Series (WinProbe) 11/22/2020,11/12/2020 H1N1 2009 Influenza, IM 09/16/2009 HPV [...] Description 03/02/2024 8:40 AM EDT Office Visit [facility] [address] [place] [address] Marta Zendejas PA-C [address] [place] [address] 04/11/2024 9:10 AM EDT Office Visit Optometry, [place] [address] [place] [address] Will Steiner Jr., OD [address] [place] [address] Pending Results Name Type Priority Associated Diagnoses Date /Time MYCODE SUBSEQUENT ADULT Lab Routine [employer] Other*[id number] 01/12/2024 9:09 AM EDT HEMOGLOBIN A1C Lab Routine Insulin resistance 01/12/2024 9:09 AM EDT INSULIN Lab Routine Insulin resistance 01/12/2024 9:09 AM EDT LIPID PANEL WITH DIRECT LDL IF TG IS HIGH Lab Routine Insulin resistance 01/12/2024 9:09 AM EDT CBC WITH WBC DIFFERENTIAL Lab Routine Restless legs syndrome 01/12/2024 9:09 AM EDT MYCODE SST1 Lab Routine [employer] Other*[id number] 01/12/2024 9:09 AM EDT MYCODE SST2 Lab Routine [employer] Other*[id number] 01/12/2024 9:09 AM EDT CBC Lab Routine Restless legs syndrome 01/12/2024 9:09 AM EDT DIFFERENTIAL, AUTOMATED Lab Routine Restless legs syndrome 01/12/2024 9:09 AM EDT Health Maintenance Due Date Last [...] as of this encounter Visit Diagnoses Diagnosis [employer] Other*[id number] Insulin resistance Dysmetabolic Syndrome X Restless legs syndrome Restless legs syndrome (RLS) documented in this encounter Advance Directives Latest [...] and were consensually agreed upon. Care Teams Shredded Filler Cigar Maker Machine Relationship Specialty Start Date End Date Marta Zendejas PA-C [address] [place] [address] PCP - General Physician Ladle Repairman 03/08/22 documented as of this encounter
--- OUTSIDE RECORDS SUMMARY | 2024-05-11 21:30 | External Medical Summary ---
Author Name Unknown Address Unknown Organization K01:LABORATORY [facility] - [address] [place] [address] Laboratory Report Ordering Provider Test Date Status LEESA CHARLES 01/12/2024 09:09:42 Final Observation Date Value Abnormality Reference (Units ) Status MYCODE SPECIMEN-SST 01/12/2024 09:09:42 Freezing of extracted DNA, whole blood and/or serum. Final Performing Location LABORATORY [facility] - [address] [place] [address]
--- OUTSIDE RECORDS SUMMARY | 2024-05-11 21:30 | External Medical Summary ---
Author Name Unknown Address Unknown Organization K01:[facility] [place] [address] [place] [address] Laboratory Report Ordering Provider Test Date Status JOSE COLE 01/12/2024 09:09:42 Final Observation Date Value Abnormality Reference (Units ) Status HbA1C 01/12/2024 09:09:42 5.7 Above high normal 4. 0-5.6 (%) Final The use of HbA1c to monitor glycemic status is based on normal hemoglobin and HbA composition. This test should not be used in patients with abnormal hemoglobin that affects the half life of the red blood cell or the in vivo glycation rates. Glucose, estimated average 01/12/2024 09:09:42 117 <126 (mg/dL) Final Performing Location LABORATORY [facility] - [address] [place] [address]
[2024-05-11] MEDS ORDERED: POLYETHYLENE (MIRALAX) 17 GM PACK PO PRN (22:50)
[2024-05-11] MEDS ORDERED: VANCOMYCIN CONSULT ACTIVE PRN (22:50)
[2024-05-11] MEDS ORDERED: SENNA 8.6 MG TAB PO PRN (23:15)
[2024-05-11] MEDS ORDERED: ALBUTEROL HFA 8 GM INHALER INH PRN (23:15)
[2024-05-11] MEDS ORDERED: DOCUSATE SODIUM 100 MG CAP PO PRN (23:15)
[2024-05-11] MEDS ORDERED: HYDROCODONE/ACETAMINOPHEN 7.5/325MG TAB PO PRN (23:15)
[2024-05-12] MEDS: MONTELUKAST SODIUM 10 MG TABLET PO SCH (00:14)
[2024-05-12] MEDS: DOXEPIN HCL 50 MG CAPSULE PO SCH (00:14)
[2024-05-12] MEDS: rOPINIRole HCL 2 MG TABLET PO SCH (00:14)
[2024-05-12] MEDS: SERTRALINE HCL 50 MG TABLET PO SCH (00:14)
[2024-05-12] MEDS: HEPARIN SOD 5,000 UNIT/0.5 ML VIAL SQ STA (00:16)
[2024-05-12] MEDS: SODIUM CHLORIDE 0.9% 1,000 ML IV SCH (00:22)
[2024-05-12] MEDS: PIPER/TAZO 4.5g in D5W MINI-B 100 ML IV STA (00:23)
[2024-05-12] MEDS: VANCOMYCIN HCL 2,500 MG in SODIUM CHLORIDE 0.9% 500 ML IV STA (00:24)
[2024-05-12] MEDS: ACETAMINOPHEN 325 MG TAB PO PRN (04:09)
[2024-05-12] MEDS: PIPERACILLIN/TAZOBACTAM 4.5 GM in DEXTROSE 5% MINI-B 100 ML IV SCH (05:51)
[2024-05-12 06:51] LABS: Basophils # (auto) 0.04 K/uL (0.00-0.20); Basophils % (auto) 0.4 %; Eosinophils # (auto) 0.15 K/uL (0.00-0.50); Eosinophils % (auto) 1.4 %; Hematocrit (blood only) 29.3 % (37.0-47.0); Hemoglobin 9.5 g/dl (12.0-16.0); Immature Granulocytes # (auto) 0.04 K/uL (0.01-0.20); Immature Granulocytes % (auto) 0.4 %; Lymphocytes # (auto) 2.24 K/uL (1.20-3.40); Lymphocytes % (auto) 21.2 %; Mean Corpuscular Hemoglobin 26.8 pg (25.0-34.0); Mean Corpuscular Hgb Conc 32.4 g/dL (32.0-36.0); Mean Corpuscular Volume 82.8 fL (80.0-100.0); Mean Platelet Volume 8.3 fL (9.4-12.4); Monocytes # (auto) 0.65 K/uL (0.11-0.59); Monocytes % (auto) 6.2 %; Neutrophils # (auto) 7.43 K/uL (1.40-6.50); Neutrophils % (auto) 70.4 %; Platelet Count 401 K/uL (130-400); RDW Coefficient of Variation 13.7 % (11.5-14.5); RDW Standard Deviation 41.7 fL (36.4-46.3); Red Blood Count 3.54 M/uL (4.20-5.40); White Blood Count 10.55 K/ul (4.8-10.8)
[2024-05-12 07:04] LABS: BUN Creatinine Ratio 12.3 (10-20); Calcium 8.1 mg/dl (8.6-10.3); Creatinine Clr Calc Pharmacy 152.4 ml/min; Est GFR (African American) 134.3 ml/min; Est GFR (Non-African American) 115.8 ml/min; Magnesium 1.8 mg/dl (1.7-2.4); Potassium 3.7 mmol/L (3.5-5.1)
[2024-05-12 07:32] LABS: Estimated Average Glucose 120 mg/dl; Hemoglobin A1C 5.8 % (4.5-5.6)
[2024-05-12] MEDS ORDERED: VANCOMYCIN HCL 1,000 MG in SODIUM CHLORIDE 0.9% 250 ML IV SCH (08:00)
--- NOTE | 2024-05-12 09:47 | Pharmacy Report ---
Pharmacy PK ABX Note - Date of Service May 12, 2024 - Assessment and Plan Assessment * 34 year old F recently s/p hysterectomy, receiving Zosyn and vancomycin for treatment of pelvic abscess and UTI. * Pertinent microbiologic data includes: urine culture pending Plan Vancomycin * Loading dose: 2500 mg IV x 1 * Maintenance dose: 1500 mg IV every 12 hours * Regimen is predicted to achieve target AUC/LORENA of 400-600 mg/L.hr * Random level ordered for tomorrow AM Pharmacy will continue to follow and will adjust dose/frequency as necessary. Thank you. Pharmacy has transitioned to AUC monitoring for vancomycin. AUC/LORENA is the preferred PK/PD target and is associated with decreased risk of nephrotoxicity compared to traditional trough targets.
--- NOTE | 2024-05-12 10:25 | OB/GYN Consultation ---
Date of Consultation May 12, 2024 Assessment & Plan (1) Pelvic abscess in female: Continue IV antibiotics for 48 hours afebrile and WBC normal and then can be transitioned to outpatient. History of Present Illness Reason for Consultation: abscess Requesting Physician: Dr. Burdick Attending Physician: Sulma Burdick MD History of Present Illness 34 F [id number] s/p vaginal hysterectomy at [facility] presents with 6 days of fever and 3 days of burning with urgency when voiding. She had a post-op visit with Dr. Story on Tuesday in [place] with no problems. Allergies Allergy/AdvReac Type Severity Reaction Status Date / Time No Known Allergies Allergy Verified 05/11/24 22:35 Home Medications Medication Instructions Recorded Confirmed Type albuterol sulfate 90 mcg/actuation 2 puff inhalation Q4 PRN Cough 05/11/24 05/11/24 History aerosol inhaler apixaban 2.5 mg tablet (Eliquis) 2.5 mg PO AMHS 05/11/24 05/11/24 History docusate sodium 100 mg capsule 100 mg PO AMHS PRN Constipation 05/11/24 05/11/24 History doxepin 25 mg capsule 50 mg PO HS 05/11/24 05/11/24 History hydrocodone 7.5 mg-acetaminophen 1 tab PO Q6 PRN Pain 05/11/24 05/11/24 History 325 mg tablet ibuprofen 800 mg tablet 800 mg PO Q8 PRN Pain 05/11/24 05/11/24 History montelukast 10 mg tablet 10 mg PO HS 05/11/24 05/11/24 History ondansetron HCl 4 mg tablet 4 mg PO Q8 PRN Nausea 05/11/24 05/11/24 History ropinirole 2 mg tablet 2 mg PO HS 05/11/24 05/11/24 History semaglutide 1 mg/dose (4 mg/3 mL) 0 mg subcut WK 05/11/24 05/11/24 History subcutaneous pen injector (Ozempic) sennosides 8.6 mg tablet (Senna 8.6 mg PO DAILY PRN Constipation 05/11/24 05/11/24 History Laxative) sertraline 100 mg tablet 150 mg PO HS 05/11/24 05/11/24 History Patient History Medical History Obesity Family History Other Deep vein thrombosis Social History Smoking Status: Never smoker Second Hand Exposure: Yes; Do You Dip or Chew Tobacco: No; Hx Alcohol Use: No Hx Substance Use: Yes Last Used Substance: Days (ago) Last Used Substance Other:: Last week Substance Use Type Other:: Medical Marijuana Preferred Language: Trinidadian Communication Ability: Effective Supervisor Audit Clerks Required: No Beliefs That Will Affect Care: None Current Living Situation: Spouse and Family Other Information That Helps Us Care for You: No Feels Safe at Home: Yes Safety Concerns: Feels Safe At This Time Review of Systems Review of Systems: All systems reviewed & are unremarkable except as noted in HPI & below Physical Exam Constitutional: WD/WN, vitals as above Eyes: PERRL, conjunctivae normal, anicteric sclerae Respiratory: normal respiratory effort, lungs clear to auscultation Cardiovascular: RRR, no murmur, no edema Gastrointestinal (Abdomen): normal bowel sounds, soft, nontender, no hepatosplenomegaly Musculoskeletal: Extremities: extremities normal to inspection Neurologic: patellar DTR's 2+ bilat, sensation intact Psychiatric: A+Ox3, euthymic affect Results & Data Vital Signs (Past 12 Hours) Vital Signs Temp Pulse Resp BP Pulse Ox O2 Del Method 05/12/24 06:59 37 C 92 H 17 101/68 96 Room Air 05/11/24 23:44 Room Air 05/11/24 22:50 36.5 C 85 18 114/77 98 Room Air Laboratory Results Laboratory Results - last 72 hr 05/11/24 05/11/24 05/11/24 16:05 16:15 18:57 WBC 13.22 H RBC 3.97 L Hgb 10.8 L Hct 32.4 L MCV 81.6 MCH 27.2 MCHC 33.3 RDW Std Deviation 40.6 RDW Coeff of Reji 13.5 Plt Count 458 H MPV 8.2 L Immature Gran % (Auto) 0.5 Neut % (Auto) 66.9 Lymph % (Auto) 23.3 [place] % (Auto) 7.4 Eos % (Auto) 1.4 Baso % (Auto) 0.5 Neut # (Auto) 8.86 H Lymph # (Auto) 3.08 [place] # (Auto) 0.98 H Eos # (Auto) 0.18 Baso # (Auto) 0.06 Immature Gran # (Auto) 0.06 Sodium 135 L Potassium 4.0 Chloride 102 Carbon Dioxide 25 Anion Gap 8 BUN 9 Creatinine 0.67 Est Cr Clr Drug Dosing 147.1 Est GFR ( Amer) 132.9 Est GFR (Non-Af Amer) 114.7 BUN/Creatinine Ratio 13.4 Glucose 91 Estimat Average Glucose Hemoglobin A1c Lactate 0.5 Calcium 9.1 Magnesium Total Bilirubin 0.4 AST 14 ALT 21 Alkaline Phosphatase 75 Total Protein 8.0 Albumin 3.8 Globulin 4.2 H Albumin/Globulin Ratio 0.9 Lipase 13 HCG, Qual Negative Urine Color Yellow Urine Appearance Cloudy A Urine pH 6.5 Ur Specific [place] 1.015 Urine Protein Trace H Urine Glucose (UA) Negative Urine Ketones Negative Urine Blood Trace H Urine Nitrite Negative Urine Bilirubin Negative Urine Urobilinogen Negative Ur Leukocyte Esterase 3+ H Urine WBC (Auto) >50 H Urine RBC (Auto) 3-5 H U Hyaline Cast (Auto) 0-2 U Epithel Cells (Auto) 11-20 H Urine Bacteria (Auto) 2+ H 05/11/24 05/12/24 Unknown 05:59 WBC 10.55 RBC 3.54 L Hgb 9.5 L Hct 29.3 L MCV 82.8 MCH 26.8 MCHC 32.4 RDW Std Deviation 41.7 RDW Coeff of Reji 13.7 Plt Count 401 H MPV 8.3 L Immature Gran % (Auto) 0.4 Neut % (Auto) 70.4 Lymph % (Auto) 21.2 [place] % (Auto) 6.2 Eos % (Auto) 1.4 Baso % (Auto) 0.4 Neut # (Auto) 7.43 H Lymph # (Auto) 2.24 [place] # (Auto) 0.65 H Eos # (Auto) 0.15 Baso # (Auto) 0.04 Immature Gran # (Auto) 0.04 Sodium 137 Potassium 3.7 Chloride 106 Carbon Dioxide 24 Anion Gap 7 BUN 8 Creatinine 0.65 Est Cr Clr Drug Dosing 152.4 Est GFR ( Amer) 134.3 Est GFR (Non-Af Amer) 115.8 BUN/Creatinine Ratio 12.3 Glucose 109 H Estimat Average Glucose 120 Hemoglobin A1c 5.8 H Lactate Calcium 8.1 L Magnesium 1.8 Total Bilirubin AST ALT Alkaline Phosphatase Total Protein Albumin Globulin Albumin/Globulin Ratio Lipase HCG, Qual Urine Color Yellow Urine Appearance Clear Urine pH 7.0 Ur Specific [place] 1.030 Urine Protein Negative Urine Glucose (UA) Negative Urine Ketones Negative Urine Blood Negative Urine Nitrite Negative Urine Bilirubin Negative Urine Urobilinogen Negative Ur Leukocyte Esterase Negative Urine WBC (Auto) Urine RBC (Auto) U Hyaline Cast (Auto) U Epithel Cells (Auto) Urine Bacteria (Auto) Diagnostic Findings CT scan with evidence of cuff absceess
[2024-05-12] MEDS: VANCOMYCIN HCL 1,500 MG in SODIUM CHLORIDE 0.9% 500 ML IV SCH (10:51)
--- NOTE | 2024-05-12 15:05 | Hospitalist Progress Note ---
Date of Service May 12, 2024 Assessment & Plan (1) Pelvic abscess in female: Plan: 34-year-old female with past medical history significant for insulin resistance, metabolic syndrome, morbid obesity, mild intermittent asthma, superficial thrombophlebitis of right upper extremity, history of primary dysmenorrhea, restless leg syndrome, migraine, Antithrombin III deficiency, depression and mood disorder who recently had a hysterectomy performed at [facility] on April 17 presents with burning micturition and fevers and pain at surgical site. Patient states last 6 days she is having temperatures at home. And lately she has developed burning micturition. She also has pain at surgical region but was told that it was mostly postprocedure. Denies any chest pain or shortness of breath. No cough. No nausea or vomiting. Appetite is okay. No headaches. No runny nose or sore throat. Hemodynamics okay. Patient has Antithrombin III deficiency and after hysterectomy she was prescribed Eliquis for 4 weeks. History of blood clot in right upper extremity about a year ago which was the first time she had a blood clot. Pelvic abscess Status post vaginal hysterectomy on 17 April at [facility] She has been complaining of fever since Tuesday last Denies any significant pain in abdomen Noted to have high white count and the CAT scan showed 33 times to 9 mm of fluid collection at the intra-abdominal surgical site ER discussed with the leather etcher on-call and advised for IV antibiotics for now Has been on on IV Vanco and Zosyn Appreciate SCREEN OPERATOR input and recommendation Will await culture report Likely discharge on oral Augmentin on Tuesday and or tomorrow UTI antibiotics as above Urine is growing pinpoint growth and is reincorporating History of Antithrombin 3 deficiency History of blood clot in right upper extremity last year Currently on Eliquis for 4 weeks post hysterectomy Will hold Eliquis tonight and give a dose of heparin subcu Eliquis has been restarted Morbid obesity Counseling Restless leg syndrome on Requip Mood disorder and depression Home meds DVT prophylaxis SCDs and restart Eliquis as soon as possible disposition medical floor full code. Admission and Anticipated Discharge Date Admission Date: May 11, 2024 Subjective 05/12/2024 The patient was seen and examined in medical floor She does not have any fever and or chills Denies any abdominal pain, nausea and or vomiting Review of Systems Review of Systems: All systems reviewed and are unremarkable except as noted below Physical Exam Physical Exam: Lying in bed without any acute distress Constitutional: well developed, well nourished, + ill appearing and + obese Eyes: PERRL, conjunctivae normal, anicteric sclerae ENMT: external ear and nose normal, oropharynx normal Neck: trachea midline, no thyromegaly Respiratory: no respiratory distress Auscultation: lungs clear to auscultation bilaterally Cardiovascular: Rate/Rhythm: regular rate and regular rhythm; not tachycardic Heart Sounds: normal S1 and normal S2; no murmur Extremities: + edema (Trace edema bilaterally) Gastrointestinal (Abdomen): Inspection/Auscultation: + abdomen distended and normal bowel sounds Percussion/Palpation: abdomen soft; abdomen nontender Musculoskeletal: No acute arthritis involving any of the joints Neurologic: normal touch/pain/proprioception and moves all extremities; no focal motor deficits Psychiatric: A+Ox3, euthymic affect Lymphatic: no cervical or axillary lymphadenopathy Results & Data Results & Data Vital Signs (Past 12 Hours) Vital Signs Temp Pulse Resp BP Pulse Ox O2 Del Method 05/12/24 06:59 37 C 92 H 17 101/68 96 Room Air Laboratory Results Short CBC 05/11/24 05/12/24 Range/Units 16:05 05:59 WBC 13.22 H 10.55 (4.8-10.8) K/ul Hgb 10.8 L 9.5 L (12.0-16.0) g/dl Hct 32.4 L 29.3 L (37.0-47.0) % Plt Count 458 H 401 H (130-400) K/uL BMP 05/11/24 05/12/24 16:05 05:59 Sodium 135 L 137 Potassium 4.0 3.7 Chloride 102 106 Carbon Dioxide 25 24 BUN 9 8 Creatinine 0.67 0.65 Glucose 91 109 H Calcium 9.1 8.1 L Liver Function 05/11/24 Range/Units 16:05 Total Bilirubin 0.4 (0.2-1.0) mg/dl AST 14 (13-39) U/L ALT 21 (7-52) U/L Alkaline Phosphatase 75 (34-104) U/L Albumin 3.8 (3.4-5.0) gm/dl Urine 05/11/24 05/11/24 Range/Units 16:15 Unknown Urine Color Yellow Yellow Urine Appearance Cloudy A Clear (Clear) Urine pH 6.5 7.0 (4.5-7.5) Ur Specific [place] 1.015 1.030 (1.000-1.030) Urine Protein Trace H Negative (Negative) Urine Glucose (UA) Negative Negative (Negative) Medications Administered Current Inpatient Medications Acetaminophen (Acetaminophen 325 Mg Tab) 650 mg PO Q4H PRN PRN Reason: pain/fever Stop: 06/10/24 22:49 Last Admin: 05/12/24 11:03 Dose: 650 mg Hydrocodone Bitart/Acetaminophen (Hydrocodone/Acetaminophen 7.5/325mg Tab) 1 tab PO Q6 PRN PRN Reason: Pain Stop: 05/25/24 23:14 Albuterol (Albuterol Hfa 8 Gm Inhaler) 2 puffs INH Q4 PRN PRN Reason: Cough Stop: 06/10/24 23:14 Apixaban (Apixaban 2.5 Mg Tab) 2.5 mg PO AM[facility] Stop: 06/11/24 20:59 Docusate Sodium (Docusate Sodium 100 Mg Cap) 100 mg PO BID PRN PRN Reason: Constipation Stop: 06/10/24 23:14 Doxepin HCl (Doxepin Hcl 50 Mg Capsule) 50 mg PO HS [facility] Stop: 06/10/24 23:14 Last Admin: 05/12/24 00:14 Dose: 50 mg Sodium Chloride (Nss) 1,000 mls @ 125 mls/hr IV .Q8H [facility] Stop: 06/10/24 22:49 Last Admin: 05/12/24 09:28 Dose: 125 mls/hr Piperacillin Sod/Tazobactam (Sod 4.5 gm/ Dextrose) 100 mls @ 25 mls/hr IV Q8H [facility]; Protocol Stop: 05/21/24 22:49 Last Admin: 05/12/24 14:10 Dose: 25 mls/hr Vancomycin HCl 1,500 mg/ (Sodium Chloride) 530 mls @ 200 mls/hr IV Q12H [facility] Stop: 05/22/24 09:59 Last Infusion: 05/12/24 13:34 Dose: Infused Miscellaneous Information (Vancomycin Consult Active) 1 each N/A UD PRN PRN Reason: Consult Stop: 06/10/24 22:49 Montelukast Sodium (Montelukast Sodium 10 Mg Tablet) 10 mg PO HS THERESE Stop: 06/10/24 23:14 Last Admin: 05/12/24 00:14 Dose: 10 mg Polyethylene Glycol (Polyethylene (Miralax) 17 Gm Pack) 17 gm PO DAILY PRN PRN Reason: Constipation Stop: 06/10/24 22:49 Ropinirole HCl (Ropinirole Hcl 2 Mg Tablet) 2 mg PO [facility] Stop: 06/10/24 23:19 Last Admin: 05/12/24 00:14 Dose: 2 mg Sennosides (Senna 8.6 Mg Tab) 8.6 mg PO DAILY PRN PRN Reason: Constipation Stop: 06/10/24 23:14 Sertraline HCl (Sertraline Hcl 50 Mg Tablet) 150 mg PO [facility] Stop: 06/10/24 23:19 Last Admin: 05/12/24 00:14 Dose: 150 mg
[2024-05-12] MEDS: APIXABAN 2.5 MG TAB PO SCH (20:06)
[2024-05-12] MEDS: ONDANSETRON INJ 2 MG/ML 2 ML VIAL IV PRN (22:32)
[2024-05-13 06:35] LABS: Basophils # (auto) 0.04 K/uL (0.00-0.20); Basophils % (auto) 0.5 %; Eosinophils # (auto) 0.23 K/uL (0.00-0.50); Eosinophils % (auto) 2.8 %; Hematocrit (blood only) 27.9 % (37.0-47.0); Hemoglobin 9.2 g/dl (12.0-16.0); Immature Granulocytes # (auto) 0.02 K/uL (0.01-0.20); Immature Granulocytes % (auto) 0.2 %; Lymphocytes # (auto) 2.42 K/uL (1.20-3.40); Lymphocytes % (auto) 29.3 %; Mean Corpuscular Hemoglobin 27.4 pg (25.0-34.0); Mean Platelet Volume 8.2 fL (9.4-12.4); Monocytes # (auto) 0.71 K/uL (0.11-0.59); Monocytes % (auto) 8.6 %; Neutrophils # (auto) 4.84 K/uL (1.40-6.50); Neutrophils % (auto) 58.6 %; Platelet Count 363 K/uL (130-400); RDW Coefficient of Variation 13.8 % (11.5-14.5); RDW Standard Deviation 41.5 fL (36.4-46.3); Red Blood Count 3.36 M/uL (4.20-5.40); White Blood Count 8.26 K/ul (4.8-10.8)
[2024-05-13 06:51] LABS: BUN Creatinine Ratio 9.4 (10-20); Calcium 8.3 mg/dl (8.6-10.3); Creatinine Clr Calc Pharmacy 154.8 ml/min; Est GFR (African American) 134.9 ml/min; Est GFR (Non-African American) 116.4 ml/min; Potassium 3.5 mmol/L (3.5-5.1)
--- NOTE | 2024-05-13 09:07 | Pharmacy Report ---
Pharmacy PK ABX Note - Date of Service May 13, 2024 - Assessment and Plan Assessment * 34 year old F recently s/p hysterectomy, receiving Zosyn and vancomycin for treatment of pelvic abscess and UTI. * Pertinent microbiologic data includes: urine culture w repeat recommended * SCr stable and at/near baseline * Afebrile, WBC wnl Plan Vancomycin * Target AUC/LORENA of 400-600 mg/L.hr * Random level of 14.5 mcg/mL this AM associated with a therapeutic AUC of 488 mg/L.hr * Continue 1500 mg IV every 12 hours * Repeat random level in 2-3 days, or sooner if clinical status changes Pharmacy will continue to follow and will adjust dose/frequency as necessary. Thank you. Pharmacy has transitioned to AUC monitoring for vancomycin. AUC/LORENA is the preferred PK/PD target and is associated with decreased risk of nephrotoxicity compared to traditional trough targets.
--- NOTE | 2024-05-13 11:29 | Hospitalist Progress Note ---
Date of Service May 13, 2024 Assessment & Plan (1) Pelvic abscess in female: Plan: 34-year-old female with past medical history significant for insulin resistance, metabolic syndrome, morbid obesity, mild intermittent asthma, superficial thrombophlebitis of right upper extremity, history of primary dysmenorrhea, restless leg syndrome, migraine, Antithrombin III deficiency, depression and mood disorder who recently had a hysterectomy performed at [place] on April 17 presents with burning micturition and fevers and pain at surgical site. Patient states last 6 days she is having temperatures at home. And lately she has developed burning micturition. She also has pain at surgical region but was told that it was mostly postprocedure. Denies any chest pain or shortness of breath. No cough. No nausea or vomiting. Appetite is okay. No headaches. No runny nose or sore throat. Hemodynamics okay. Patient has Antithrombin III deficiency and after hysterectomy she was prescribed Eliquis for 4 weeks. History of blood clot in right upper extremity about a year ago which was the first time she had a blood clot. Pelvic abscess Status post vaginal hysterectomy on 17 April at [place] She has been complaining of fever since Tuesday last Denies any significant pain in abdomen Noted to have high white count and the CAT scan showed 33 times to 9 mm of fluid collection at the intra-abdominal surgical site ER discussed with the jailor on-call and advised for IV antibiotics for now Has been on on IV Vanco and Zosyn Appreciate STRIP POLISHER input and recommendation Will await culture report Likely discharge on oral Augmentin on Tuesday and or tomorrow Clinically much better and remains hemodynamically stable without any fever and chills Augmentin has been started will be discharged home this afternoon UTI antibiotics as above Urine is growing pinpoint growth and is reincorporating Urine culture has been negative History of Antithrombin 3 deficiency History of blood clot in right upper extremity last year Currently on Eliquis for 4 weeks post hysterectomy Will hold Eliquis tonight and give a dose of heparin subcu Eliquis has been restarted Morbid obesity Counseling Restless leg syndrome on Requip Mood disorder and depression Home meds DVT prophylaxis SCDs and restart Eliquis as soon as possible disposition medical floor full code. Admission and Anticipated Discharge Date Admission Date: May 11, 2024 Subjective 05/12/2024 The patient was seen and examined in medical floor She does not have any fever and or chills Denies any abdominal pain, nausea and or vomiting 05/13/2024 The patient was seen and examined in medical floor She has been feeling much better and denies any symptoms No fever and no chills and the white count has come down to normal Urine culture has been negative She wants to go home and she will be discharged home this afternoon Review of Systems Review of Systems: All systems reviewed and are unremarkable except as noted below Physical Exam Physical Exam: Lying in bed without any acute distress Constitutional: well developed, well nourished, + ill appearing and + obese Eyes: PERRL, conjunctivae normal, anicteric sclerae ENMT: external ear and nose normal, oropharynx normal Neck: trachea midline, no thyromegaly Respiratory: no respiratory distress Auscultation: lungs clear to auscultation bilaterally Cardiovascular: Rate/Rhythm: regular rate and regular rhythm; not tachycardic Heart Sounds: normal S1 and normal S2; no murmur Extremities: + edema (Trace edema bilaterally) Gastrointestinal (Abdomen): Inspection/Auscultation: + abdomen distended and normal bowel sounds Percussion/Palpation: abdomen soft; abdomen nontender Neurologic: normal touch/pain/proprioception and moves all extremities; no focal motor deficits Psychiatric: A+Ox3, euthymic affect Lymphatic: no cervical or axillary lymphadenopathy Results & Data Results & Data Vital Signs (Past 12 Hours) Vital Signs Temp Pulse Resp BP Pulse Ox O2 Del Method 05/13/24 06:56 37.1 C 91 H 18 103/66 97 Room Air Laboratory Results Short CBC 05/13/24 Range/Units 05:58 WBC 8.26 (4.8-10.8) K/ul Hgb 9.2 L (12.0-16.0) g/dl Hct 27.9 L (37.0-47.0) % Plt Count 363 (130-400) K/uL BMP 05/13/24 05:58 Sodium 138 Potassium 3.5 Chloride 107 Carbon Dioxide 24 BUN 6 Creatinine 0.64 Glucose 92 Calcium 8.3 L Medications Administered Current Inpatient Medications Acetaminophen (Acetaminophen 325 Mg Tab) 650 mg PO Q4H PRN PRN Reason: pain/fever Stop: 06/10/24 22:49 Last Admin: 05/12/24 20:09 Dose: 650 mg Hydrocodone Bitart/Acetaminophen (Hydrocodone/Acetaminophen 7.5/325mg Tab) 1 tab PO Q6 PRN PRN Reason: Pain Stop: 05/25/24 23:14 Albuterol (Albuterol Hfa 8 Gm Inhaler) 2 puffs INH Q4 PRN PRN Reason: Cough Stop: 06/10/24 23:14 Amoxicillin/Clavulanate Potassium (Amoxicillin/Clavulanate 875 Mg Tab) 1 tab PO BIDM [facility]; Protocol Stop: 05/20/24 11:29 Apixaban (Apixaban 2.5 Mg Tab) 2.5 mg PO [facility] Stop: 06/11/24 20:59 Last Admin: 05/13/24 08:34 Dose: 2.5 mg Docusate Sodium (Docusate Sodium 100 Mg Cap) 100 mg PO BID PRN PRN Reason: Constipation Stop: 06/10/24 23:14 Doxepin HCl (Doxepin Hcl 50 Mg Capsule) 50 mg PO [facility] Stop: 06/10/24 23:14 Last Admin: 05/12/24 20:06 Dose: 50 mg Vancomycin HCl 1,500 mg/ (Sodium Chloride) 530 mls @ 200 mls/hr IV Q12H [facility] Stop: 05/22/24 09:59 Last Admin: 05/13/24 10:32 Dose: 200 mls/hr Miscellaneous Information (Vancomycin Consult Active) 1 each N/A UD PRN PRN Reason: Consult Stop: 06/10/24 22:49 Montelukast Sodium (Montelukast Sodium 10 Mg Tablet) 10 mg PO [facility] Stop: 06/10/24 23:14 Last Admin: 05/12/24 20:07 Dose: 10 mg Ondansetron HCl (Ondansetron Inj 2 Mg/Ml 2 Ml Vial) 4 mg IV Q6H PRN PRN Reason: Nausea And Vomiting Stop: 06/11/24 22:05 Last Admin: 05/12/24 22:32 Dose: 4 mg Polyethylene Glycol (Polyethylene (Miralax) 17 Gm Pack) 17 gm PO DAILY PRN PRN Reason: Constipation Stop: 06/10/24 22:49 Ropinirole HCl (Ropinirole Hcl 2 Mg Tablet) 2 mg PO [facility] Stop: 06/10/24 23:19 Last Admin: 05/12/24 20:07 Dose: 2 mg Sennosides (Senna 8.6 Mg Tab) 8.6 mg PO DAILY PRN PRN Reason: Constipation Stop: 06/10/24 23:14 Sertraline HCl (Sertraline Hcl 50 Mg Tablet) 150 mg PO HS [facility] Stop: 06/10/24 23:19 Last Admin: 05/12/24 20:07 Dose: 150 mg
[2024-05-13] MEDS: AMOXICILLIN/CLAVULANATE 875 MG TAB PO SCH (12:51)
--- NOTE | 2024-05-14 16:34 | Discharge Summary ---
Date of Service May 14, 2024 Admission HPI Per Admitting Provider 34-year-old female with past medical history significant for insulin resistance, metabolic syndrome, morbid obesity, mild intermittent asthma, superficial thrombophlebitis of right upper extremity, history of primary dy smenorrhea, restless leg syndrome, migraine, Antithrombin III deficiency, depression and mood disorder who recently had a hysterectomy performed at [place] on April 17 presents with burning micturition and fevers and pain at surgical site. Patient states last 6 days she is having temperatures at home. And lately she has developed burning micturition. She also has pain at surgical region but was told that it was mostly postprocedure. Denies any chest pain or shortness of breath. No cough. No nausea or vomiting. Appetite is okay. No headaches. No runny nose or sore throat. Hemodynamics okay. Patient has Antithrombin III deficiency and after hysterectomy she was prescribed Eliquis for 4 weeks. History of blood clot in right upper extremity about a year ago which was the first time she had a blood clot. Past medical history. As mentioned above Past surgical history. Cystoscopy. Laparoscopic fulguration of oviducts. Cholecystectomy. Vaginal hysterectomy with removal of tubes And ovary. Social history. . Quit smoking 2009. Vapes reviewed as per [employer]. No alcohol use. Marijuana on weekends as per [employer]. Family history. Mother has COPD. Maternal great uncle had colon cancer. Maternal grandfather had diabetes. [place]. And stroke. Paternal grandmother had hypertension, heart disorder and stroke. Admission Exam Per Admitting Provider Physical Exam: General- Not in distress. Head- atraumatic Eyes- PERRL. ENT- oropharynx clear Neck- supple, no JVD. Lungs- clear to auscultation no wheezing or crackles. Heart- regular rhythm; no murmur, no gallop. Abdomen- normal bowel sounds, soft, nontender, no distension. Extremities- no pretibial edema, no erythema seen. Neuro- alert, oriented PERRL, no facial palsy; no dysarthria; moves etxremities. Principal Diagnosis Pelvic abscess Discharge Exam Lying in bed without any acute distress Constitutional well developed, well nourished, + ill appearing and + obese Eyes PERRL, conjunctivae normal, anicteric sclerae ENMT external ear and nose normal, oropharynx normal Neck trachea midline, no thyromegaly Respiratory no respiratory distress Auscultation: lungs clear to auscultation bilaterally Cardiovascular Rate/Rhythm: regular rate and regular rhythm; not tachycardic Heart Sounds: normal S1 and normal S2; no murmur Extremities: + edema (Trace edema bilaterally) Gastrointestinal (Abdomen) Inspection/Auscultation: + abdomen distended and normal bowel sounds Percussion/Palpation: abdomen soft; abdomen nontender Neurologic normal touch/pain/proprioception and moves all extremities; no focal motor deficits Psychiatric A+Ox3, euthymic affect Lymphatic no cervical or axillary lymphadenopathy Discharge Data Allergies Allergy/AdvReac Type Severity Reaction Status Date / Time No Known Allergies Allergy Verified 05/11/24 22:35 Consultations 05/11/24 19:30 ED Decision to Admit Stat 05/12/24 08:00 Consult Obstetrics Routine Ordered Studies 05/11/24 16:58 CT abd pelvis IV con only Stat Hospital Course (1) Pelvic abscess in female: 34-year-old female with past medical history significant for insulin resistance, metabolic syndrome, morbid obesity, mild intermittent asthma, superficial thrombophlebitis of right upper extremity, history of primary dysmenorrhea, restless leg syndrome, migraine, Antithrombin III deficiency, depression and mood disorder who recently had a hysterectomy performed at [place] on April 17 presents with burning micturition and fevers and pain at surgical site. Patient states last 6 days she is having temperatures at home. And lately she has developed burning micturition. She also has pain at surgical region but was told that it was mostly postprocedure. Denies any chest pain or shortness of breath. No cough. No nausea or vomiting. Appetite is okay. No headaches. No runny nose or sore throat. Hemodynamics okay. Patient has Antithrombin III deficiency and after hysterectomy she was prescribed Eliquis for 4 weeks. History of blood clot in right upper extremity about a year ago which was the first time she had a blood clot. Pelvic abscess Status post vaginal hysterectomy on 17 April at [place] She has been complaining of fever since Tuesday last Denies any significant pain in abdomen Noted to have high white count and the CAT scan showed 33 times to 9 mm of fluid collection at the intra-abdominal surgical site ER discussed with the home care manager rn on-call and advised for IV antibiotics for now Has been on on IV Vanco and Zosyn Appreciate SPANISH LITERATURE PROFESSOR input and recommendation Will await culture report Likely discharge on oral Augmentin on Tuesday and or tomorrow Clinically much better and remains hemodynamically stable without any fever and chills Augmentin has been started will be discharged home this afternoon UTI antibiotics as above Urine is growing pinpoint growth and is reincorporating Urine culture has been negative History of Antithrombin 3 deficiency History of blood clot in right upper extremity last year Currently on Eliquis for 4 weeks post hysterectomy Will hold Eliquis tonight and give a dose of heparin subcu Eliquis has been restarted Morbid obesity Counseling Restless leg syndrome on Requip Mood disorder and depression Home meds DVT prophylaxis SCDs and restart Eliquis as soon as possible disposition medical floor full code. Total Time Total Time Spent Total Time Spent (In Minutes): 35 minutes Discharge Plan Discharge Items Patient Disposition: Home - Self-Care Reason For Visit: PELVIC ABSCESS AND UTI Discharge Diagnosis: Pelvic abscess Condition on Discharge: Good Activity: Resume your previous activity Non-emergency contact: Primary Care Provider Call non-emergency contact if: you have any medication questions and your symptoms worsen Follow-up/Referrals: Marta Zendejas PA-C [Primary Care Provider] - (You will be called on Tuesday with an appointment with in 7 days) Diet: Heart Healthy Addtl Attending Provider Instructions: Please finish the course of antibiotic You can take some probiotics [id number] Please keep appointment with the healthcare providers Pending Studies at Discharge: No Stand-Alone Forms: My [employer], Smoking Cessation Medications and DC Order Prescriptions: New amoxicillin-pot clavulanate 875-125 mg Tablet 1 tab PO BIDM Qty: 12 0RF Continued sennosides [Senna Laxative] 8.6 mg tablet 8.6 mg PO DAILY PRN (Reason: Constipation) doxepin 25 mg capsule 50 mg PO HS ondansetron HCl 4 mg tablet 4 mg PO Q8 PRN (Reason: Nausea) sertraline 100 mg tablet 150 mg PO HS hydrocodone-acetaminophen 7.5-325 mg tablet 1 tab PO Q6 PRN (Reason: Pain) ropinirole 2 mg tablet 2 mg PO HS docusate sodium 100 mg capsule 100 mg PO [facility] PRN (Reason: Constipation) montelukast 10 mg Tablet 10 mg PO HS albuterol sulfate 90 mcg/actuation HFA aerosol inhaler 2 puff INHALATION Q4 PRN (Reason: Cough) Eliquis 2.5 mg tablet 2.5 mg PO [facility] Rx Instructions: End date 05/15/2024 Ozempic 1 mg/dose (4 mg/3 mL) pen injector 0 mg SUBCUT WK Rx Instructions: tuesday Discontinued ibuprofen 800 mg tablet 800 mg PO Q8 PRN (Reason: Pain) Discharge Orders: Discharge Order (Routine); Ordered 05/13/24 Ordered By: Sulma Vu/Other Patient Handouts: PID, PID Complications, PID, PID W Medicines Tx, ED Pelvic Inflammatory Disease Admission Data Admit Date/Time: 05/11/24 20:38 Attending Provider: Sulma Burdick Admit Provider: Jesus Moffett Primary Care Provider: Marta Zendejas Other Providers: Jesus Moffett; Allen Powers; Randee Helms; Elise Osborne; Jose F Padilla; Cyril Carbajal; aPul Foley; Craig Romero; Breanna Longoria; Sofia Chase; Wanda Phillips; Idalmis Live; Adelaida Greene; Sheeba Mota; Jenni Leger; Shant Mead; Shanice Rivas Other Interventions: Discharge Summary Assessment (RN) Last Done: 05/13/24 13:01
== END 2024-05-13 14:29 | disposition home or self-care (01) | DRG 758 ==
LOC: ED 15:35 → 3N 20:38